=== PATIENT | male | born 1975 | race Caucasian/White ===

== ENCOUNTER 2024-02-03 09:17 | Outpatient (CLI) | payer BC, SELFPAY ==
[2024-02-03 09:33] LABS: Basophils # 0.1 K/mm3 (0-0.2); Basophils % 1.3 % (0.1-2.0); Eosinophils # 0.2 K/mm3 (0.0-0.4); Hematocrit 49.4 % (42.0-52.0); Hemoglobin 16.3 g/dL (14.1-18.0); Lymphocytes # 2.4 K/mm3 (0.7-4.5); Lymphocytes % 32.8 % (10-50); Mean Corpuscular HGB Conc 33.1 g/dL (31.8-35.4); Mean Corpuscular Hemoglobin 30.2 pg (27.0-31.2); Mean Corpuscular Volume 91.4 fl (80-94); Mean Platelet Volume 8.5 fl (7.4-10.4); Monocytes # 0.5 K/mm3 (0.1-1.0); Monocytes % 6.3 % (1.7-9.3); Neutrophils # 4.2 K/mm3 (1.8-7.8); Neutrophils % 56.7 % (37.0-80.0); Platelet Count 298 K/mm3 (142-424); Red Cell Distribution Width 13.8 % (11.5-17.5); White Blood Count 7.4 K/mm3 (4.8-10.8)
[2024-02-03 10:03] LABS: Chloride 105 mmol/L (98-107); Sodium 138 mmol/L (136-145)
[2024-02-03 10:04] LABS: Potassium 4.5 mmoL/L (3.5-5.1)
[2024-02-03 10:06] LABS: Blood Urea Nitrogen 18 mg/dl (9-20); Estimated Glomerular Filt Rate 90 ml/min (>60); GFR (African American) 109 ML/MIN (>60)
[2024-02-03 10:07] LABS: Anion Gap 10.5 mEq/L (5-15); Calcium 9.4 mg/dl (8.4-10.2); Carbon Dioxide 27 mmol/L (22.0-30.0); Glucose 97 mg/dl (74-100)
== END 2024-02-03 23:59 | disposition home or self-care (01) ==
LOC: LAB 09:18
PROVIDERS: PCP Nurse Practitioner Family; Visit Provider Surgery
DX: M79.89 Other specified soft tissue disorders (principal)
CPT/HCPCS: 36415; 80048; 85025

== ENCOUNTER 2024-02-12 09:30 | Outpatient (CLI) | payer BC, SELFPAY ==
--- NOTE | 2024-02-12 09:48 | ECG_ITS ---
APPROVED REPORT Exam: Resting ECG HR:78 bpm ECG Measurements Heart Rate 78 AXES MD 172 P 11 QRSd 90 QRS -3 QT 338 T 52 QTc 371 Conclusion SINUS RHYTHM Late R wave progression - old finding LAD ABNORMAL ECG UNCONFIRMED REPORT Electronically signed by : Manas Edwards MD 02/12/2024 14:18:22
== END 2024-02-12 23:59 | disposition home or self-care (01) ==
LOC: PREOP 09:32
PROVIDERS: PCP Nurse Practitioner Family; Visit Provider Surgery
DX: R94.31 Abnormal electrocardiogram [ECG] [EKG] (principal)
CPT/HCPCS: 93005

== ENCOUNTER 2024-02-18 09:29 | Day surgery (SDC) | payer BC, SELFPAY ==
[2024-02-12 09:52] VITALS: BMI 33.9
[2024-02-18 09:45] VITALS: BP 124/71; PULSE 71; RESP 18; TEMP 36.1; O2SAT 98
--- NOTE | 2024-02-18 09:49 | P.PNANES_ITS ---
[facility] Disclaimer: The information contained in this section may have been updated after the patient was seen, as this information can be updated by other users. Medical History HLD (hyperlipidemia) HTN (hypertension) Surgical History History of surgery on arm H/O excision of dermoid cyst Family History Other Family history of colon cancer Social History Smoking Status: Current every day smoker alcohol intake: never substance use type: denies use current occupational status: employed Travel in the last 8 weeks: Inside the [place] [facility] Anesthesia Checklist Patient Identification Patient Identification: Arm Band and Verbal (Name & ) Structural Data Admitted From: Home Planned Operative Procedure/s: Excision neoplasm Consent for Planned Operative Procedure(s) Verified: Yes Verified Documents: Surgical Consent and History and Physical NPO Status Verified Time NPO: 00:00 Additional verifications Anesthesia Reactions: No Airway Assessment Mallampati Score:: Class III C-Spine Mobility Assessed: Yes TMJ Mobility Assessed: Yes Dentition: Good Dentition Neurological Assessment Level of Consciousness: Awake Hx Seizures: No Numbness or tingling in extremities: No Anesthesia Plan Anesthesia Risk discussed: Yes Anesthesia Plan: Verified ASA Class: II Anesthesia Type: General
[2024-02-18] MEDS: LACTATED RINGERS 1000ML 1,000 ML 25 ML IV (09:54)
--- NOTE | 2024-02-18 10:01 | EXP.OP.NOTE ---
Date of procedure: 02/18/24 Pre-op Diagnosis:: 2 cm soft tissue mass along mid back Post-op Diagnosis:: 3.5 cm soft tissue mass along mid back Procedure performed:: Excision of 3.5 cm mid back soft tissue mass Surgeon:: Rich España MD TEXTILE COLORIST DYER:: Abilio Murphy Anesthesia: MAC and local Estimated blood loss (mL): 15 Clinical Note:: Note: The patient's preoperative EKG was auto-read as possible myocardial infarction. This reading was deemed inaccurate per anesthesia. The patient does not complain of chest pain. He is aware of the auto read and wishes to discuss it with his primary care provider in the next few weeks . Operative findings:: Multiple small lipomatous lesions with aggregate size approximately 3.5 cm Operative note:: After informed consent was obtained the patient was taken to the operating room and placed in the supine position. Monitored anesthesia care ensued and he was transferred to the right lateral cubitus position. His mid back was prepped and draped in a sterile fashion. After infiltration with local anesthetic an incision was made overlying the palpable abnormality. Multiple small lipomatous-like lesions with aggregate size approximately 3.5 cm was noted. Dissection was taken to the fascial margin. No definitive intramuscular anomaly was palpable. The aggregation of small lipomatous lesions was excised in toto and passed off for pathologic evaluation. Electrocautery was utilized to achieve hemostasis. The wound was irrigated and skin was reapproximated with 4-0 nylon in an interrupted fashion. Dressings were applied and the patient was transferred to recovery in stable condition. Condition: stable Disposition: PACU Specimens:: Mid back lipomatous lesions Complications:: No immediate
[2024-02-18] MEDS: CEFAZOLIN SODIUM 2 GM in 0.9 % SODIUM CHLORIDE 100 ML IV (10:15)
--- NOTE | 2024-02-18 10:20 | SUR.PREOP ---
Dr. España asked that we notify pt's PCP, Frank Cunningham APRN, about an abnormal pre-op EKG. TC and spoke with [facility] to explain and sent fax of EKG. Verbalized understanding.
[2024-02-18] MEDS: LIDOCAINE 1% 20ML MDV 20 ML (10:26)
[2024-02-18] MEDS: BACITRACIN ZINC OINT 30GM TUBE 28 GM TP (10:45)
[2024-02-18 10:57] VITALS: BP 100/50; PULSE 63; RESP 16; TEMP 36.3; O2SAT 95
[2024-02-18 11:17] VITALS: BP 99/54; PULSE 63; RESP 18; O2SAT 94
[2024-02-18 11:27] VITALS: BP 108/55; PULSE 66; RESP 18; O2SAT 97
== END 2024-02-18 11:27 | disposition home or self-care (01) ==
PROVIDERS: PCP Nurse Practitioner Family; Visit Provider Surgery
PROC: (CPT 21931; principal; 2024-02-18 11:00)
DX: R22.2 Localized swelling, mass and lump, trunk (principal)
CPT/HCPCS: 21931; J0690; J1100; J2405; J3010; J7120

== ENCOUNTER 2024-03-17 12:59 | Outpatient (CLI) | payer BC, SELFPAY ==
--- NOTE | 2024-03-17 13:00 | CA_ITS ---
APPROVED REPORT EXAM: Comprehensive 2D, Doppler, and color-flow Echocardiogram Revenue Cycle Administrator: Melissa Cool CRT Ht: 6 ft 1 in Wt: 262lbs BSA: 2.41 BP: 140/75 mmHg Indications: Abnormal ECG, Murmur, Hyperlipidemia, Hypertension/HDD, smoker 2D Dimensions LA Volume 51.90 mL LA Volume Index 21.45 mL/m2 (M/F) 16-34 M-Mode Dimensions RVDd 2.80 cm (0.9-2.6) LA Diam 4.56 cm (1.9-4.0) LVDd 4.71 cm (3.5-5.7) LVDs 3.27 cm (3.5-5.7) IVSd 1.57 cm (0.6-1.1) PWd 1.27 cm (0.6-1.1) EF (Teich) 58.00% FS 30.60% EDV (Teich) 102.90 mL TAPSE 2.78 (<1.7) ESV (Teich) 43.20 mL LV Diastology E Decel Time 307 (160-240 msec) E/A Ratio 0.76 MED A' 13.20 cm/s LAT A' 9.90 cm/s Aortic Valve TERENCE Index 0.77 cm2/m2 AoV Peak Wilian. 295.0 (50-130 cm/s) AO Peak GR. 34.80 mmHg AO Mean GR. 18.80 (<5 mmHg) AO VTI 59.3 (18-25 cm) TERENCE (VTI) 1.90 (2.5-4.5 cm2) Mitral Valve MV A Velocity 146.0 (40-130 cm/s) E/A Ratio 0.76 Tricuspid Valve TR P. Velocity 236.00 cm/s RAP Estimate 10.00 mmHg RVSP 32.40 mmHg Left Ventricle The left ventricle is normal size. The left ventricular systolic function is normal. The left ventricular ejection fraction is within the normal range. There is increased LV wall thickness. There is normal LV segmental wall motion. The left ventricular diastolic function is normal. LVEF is 60%. Right Ventricle The right ventricle is normal size. The right ventricular systolic function is normal. Atria The left atrium is mildly dilated. Right atrium is mildly dilated. There is no Doppler evidence of interatrial shunt. Aortic Valve Aortic valve is mildly thickened, cannot rule out bicuspid aortic valve. Mild to moderate aortic stenosis. TERENCE by continuity equation is 2.0 cm???. Peak velocity 2.9 m/s. Mean AV gradient 20 mmHg. Max AV gradient 38 mmHg. No aortic regurgitation is present. Mitral Valve The mitral valve leaflets are mildly thickened. Trace mitral regurgitation No evidence of mitral valve stenosis. Tricuspid Valve The tricuspid valve leaflets are thin and pliable. Trace tricuspid regurgitation. There is insufficient TR jet to estimate RVSP. Pulmonic Valve The pulmonary valve is normal in structure. Trace pulmonic regurgitation. Great Vessels The aortic root is normal in size. The ascending aorta is not well-visualized. IVC is normal in size and collapses >50% with inspiration. Pericardium There is no pericardial effusion. Other Information Study Quality: Fair Conclusion Normal biventricular systolic function. Mild biatrial dilation. Thickened AV leaflets, cannot rule out bicuspid aortic valve. Mild to moderate (TERENCE by continuity equation is 2.0 cm???. Peak velocity 2.9 m/s. Mean AV gradient 20 mmHg. Max AV gradient 38 mmHg). Electronically signed by : Elsa Almonte MD 03/23/2024 12:57:18
== END 2024-03-17 23:59 | disposition home or self-care (01) ==
LOC: RT 13:00
PROVIDERS: PCP Nurse Practitioner Family; Visit Provider Physician Assistant
DX: R01.1 Cardiac murmur, unspecified (principal); R94.31 Abnormal electrocardiogram [ECG] [EKG]; Z82.49 Family history of ischemic heart disease and other diseases of the circulatory system
CPT/HCPCS: 93306

== ENCOUNTER 2024-03-23 06:10 | Outpatient (CLI) | payer SELFPAY ==
--- NOTE | 2024-03-23 06:14 | CT_ITS ---
APPROVED REPORT Feed Grinder: CLINICAL INDICATION Risk stratification TECHNIQUE Image Acquisition: A 128 slice MDCT scanner (L[employer]ish Skatea View) was used for data acquisition. A noncontrast coronary calcium scan was performed. A CT attenuation threshold of 130 Hounsfield units (HU) was used for the detection of calcium in contiguous voxels of 1 sq mm in area to be counted as individual lesions. A tube voltage of 120 KVp was used. The patient received no medications prior to the coronary calcium CT. Image Reconstruction Transaxial images were reconstructed at 0.67 mm slide thickness. Data was reviewed interactively on an advanced workstation capable of 2 and 3-dimensional displays in all conventional reconstruction formats, including multiplanar reformations, maximum intensity projections, curved multiplanar reformations, and volume rendered reconstructions. When applicable, selected routine images describing the relevant coronary anatomy and pathology were saved and sent to PACS. Complications None Technical Quality Overall image quality was good. Total DLP (Dose-Length Product) is 143.9 mGy-cm. The reported value represents the total of one or more individual components during the CT acquisition of this date and at this time, and as such, the same value may appear in more than one CT report depending on the interpreting/reporting physicians. COMPARISON None FINDINGS CT Coronary Calcium Scoring LMA (Left Main Artery) = 0 LAD (Left Anterior Descending) = 0 LCX (Left Coronary Circumflex) = 0 RCA (Right Coronary Artery) = 0 Total Calcium Score = 0 using the AJ-130 method. There is mild calcification in the aortic valve and the proximal ascending aorta. IMPRESSION -Coronary artery calcification is present. -Total Calcium Score (Agatston Score) = 0 using the AJ-130 method. -Mild calcification in the aortic valve and the proximal ascending aorta is incidentally noted. The interpretation of the calcium heart score is based on the following continuum*: 0 = no calcified plaque detected (risk of coronary artery disease is very low ??? less than 5%) 1-10 = calcium detected in extremely minimal levels (risk of coronary diseases is still low ??? less than 10%) 11-100 = mild levels of plaque detected with certainty (mild or minimal narrowing of heart arteries is likely) 101-400 = definite,at least moderate levels of plaque detected (relatively high risk of a heart attack within 3-5 years) >401-999 = extensive levels of plaque detected (high risk of heart attack, high levels of vascular disease are present, high likelihood of at least one significant coronary narrowing) *The calcium heart score quantifies the burden of coronary calcification/plaque in the coronary arteries. The calcium heart score does not evaluate the presence or the burden of non-calcified (i.e. soft) plaque. The coronary and cardiac findings of this Coronary Calcium CT were reviewed, reported, and signed by Yaya Almonte MD (Photoengraving Apprentice). Conclusion Electronically signed by : Elsa Almonte MD 03/23/2024 12:25:44
== END 2024-03-23 23:59 | disposition home or self-care (01) ==
LOC: RAD 06:11
PROVIDERS: PCP Nurse Practitioner Family; Visit Provider Physician Assistant
DX: R94.31 Abnormal electrocardiogram [ECG] [EKG] (principal); Z72.0 Tobacco use
CPT/HCPCS: 75571

== ENCOUNTER 2024-05-10 08:23 | Day surgery (SDC) | payer BC, SELFPAY ==
[2024-05-09 13:19] VITALS: BMI 35.2
[2024-05-10 08:48] VITALS: BP 145/85; PULSE 81; RESP 18; TEMP 37.2; O2SAT 96
--- NOTE | 2024-05-10 08:55 | P.PNANES_ITS ---
[facility] Disclaimer: The information contained in this section may have been updated after the patient was seen, as this information can be updated by other users. Medical History Sleep apnea Anxiety Scoliosis HLD (hyperlipidemia) HTN (hypertension) Surgical History History of surgery on arm H/O excision of dermoid cyst Family History Grandfather Heart attack Grandmother Stroke Father Hypertension Other Family history of colon cancer Social History Smoking Status: Current every day smoker alcohol intake: current alcohol intake frequency: a few times a week substance use type: denies use current occupational status: employed Travel in the last 8 weeks: Inside the [place] caffeine: Yes Have you lived/traveled outside [place] in past 30 days?: No Contact w/someone who lives/traveled outside US past 30 days?: No Exposure to someone with infectious disease in past 14 days?: No Do you have a fever (greater than 100.4 F or 38 C)?: No Have you tested positive for COVID-19: No Exposed to someone with COVID-19 in past 14 days?: No Do you have a sore throat?: No Do you have a cough?: No Do you have any weakness?: No Are you experiencing any nausea/vomitting?: No Do you have any diarrhea?: No Are you experiencing any unusual bleeding?: No Do you have any muscle aches/pain?: No Do you have any abdominal pain?: No Are you experiencing loss of taste or smell?: No [facility] Anesthesia Checklist Patient Identification Patient Identification: Arm Band and Verbal (Name & ) Structural Data Admitted From: Home Planned Operative Procedure/s: Colonoscopy Consent for Planned Operative Procedure(s) Verified: Yes Verified Documents: Surgical Consent and History and Physical NPO Status Verified Time NPO: 00:00 Additional verifications Anesthesia Reactions: No Hx Blood Transfusions: No Airway Assessment Mallampati Score:: Class III C-Spine Mobility Assessed: Yes TMJ Mobility Assessed: Yes Dentition: Good Dentition Neurological Assessment Level of Consciousness: Awake Hx Seizures: No Numbness or tingling in extremities: No Anesthesia Plan Anesthesia Risk discussed: Yes Anesthesia Plan: Verified ASA Class: III Anesthesia Type: MAC
--- NOTE | 2024-05-10 09:01 | HMH.SCOPE ---
Procedure: Date: 05/10/24 Patient Date of :: 1975 Procedure Performed:: Colonoscopy with polypectomy Indications:: Screening Performing Provider:: Rich España MD Referring Provider:: . Sedation:: Monitored anesthesia care Procedure:: After informed consent was obtained the patient was taken to the endoscopy suite. Sedation ensued after the patient was transferred to the left lateral decubitus position. Pulse, blood pressure, and oxygen saturation were monitored throughout the procedure. Digital rectal exam revealed no significant abnormality. The colonoscope was placed in position. The entire colon was evaluated. The colonoscope was carefully removed and the patient was transferred to recovery in stable condition. Please see findings and specimens below for detail. Findings:: Bowel preparation moderate Hemorrhoidal cushions Profound spasticity/lack of relaxation Significant tortuosity Multiple complex polyps (see specimens) Specimens:: Sessile lobulated cecal polyp (cold snare) Cluster of sessile polyps between 30 and 35 cm (cold snare) Large complex lobulated partially pedunculated polyp at 15 cm (hot snare) Recommendations:: Timing of repeat colonoscopy is pending pathology but likely be between 6-12 months with extended bowel preparation secondary to size/nature/number of polyps, moderate bowel preparation, and profound spasticity/lack of relaxation. Complications:: No immediate Estimated blood obtained (mL): 1 Colonoscopy Component Colonoscopy Component Was a colonoscopy performed during today's procedure?: Yes Recommended follow up colonoscopy of at least 10 years?: No If no, follow up colonoscopy recommended in ___ years?: (See above) Reason for not recommending >/= 10 yr follow-up interval?: (See above)
[2024-05-10 09:08] VITALS: O2SAT 97
[2024-05-10 09:42] VITALS: BP 109/67; PULSE 74; RESP 16; TEMP 36.1; O2SAT 92
[2024-05-10 09:52] VITALS: BP 110/72; PULSE 72; RESP 16; O2SAT 98
[2024-05-10 10:02] VITALS: BP 124/59; PULSE 77; RESP 16; O2SAT 98
== END 2024-05-10 10:20 | disposition home or self-care (01) ==
PROVIDERS: PCP Nurse Practitioner Family; Visit Provider Surgery
PROC: 0DJD8ZZ Inspection of Lower Intestinal Tract, Via Natural or Artificial Opening Endoscopic (ICD-10-PCS; CPT 45385; principal; 2024-05-10 09:30)
DX: K63.5 Polyp of colon (principal); D12.0 Benign neoplasm of cecum; D12.5 Benign neoplasm of sigmoid colon; K64.9 Unspecified hemorrhoids; Z12.11 Encounter for screening for malignant neoplasm of colon; Z80.0 Family history of malignant neoplasm of digestive organs
CPT/HCPCS: 45385; J2704

== ENCOUNTER 2024-07-06 23:52 | Inpatient (IN) | payer BC, SELFPAY ==
[2024-07-06 23:53] VITALS: BP 159/91; PULSE 102; RESP 18; TEMP 38.6; O2SAT 95; BMI 35.2
[2024-07-06 23:56] VITALS: BP 159/91; PULSE 104; O2SAT 95
[2024-07-07] VITALS (25 sets, daily range): BP systolic 118–169; BP diastolic 52–96; PULSE 71–99; RESP 14–18; TEMP 36.3–38.6; O2SAT 90–97; BMI 48.9
--- NOTE | 2024-07-07 00:04 | CT_ITS ---
PROCEDURE INFORMATION: Exam: CT Abdomen And Pelvis With Contrast Exam date and time: 07/07/2024 1:05 AM Age: 48 years old Clinical indication: Abdominal pain; Additional info: Rlq pain, ttp, fever TECHNIQUE: Imaging protocol: Computed tomography of the abdomen and pelvis with contrast. Radiation optimization: All CT scans at this facility use at least one of these dose optimization techniques: automated exposure control; mA and/or kV adjustment per patient size (includes targeted exams where dose is matched to clinical indication); or iterative reconstruction. Contrast material: ISOVUE; Contrast volume: 75 ml; Contrast route: IV; COMPARISON: CT HEART W CALCIUM SCORE 03/23/2024 6:42 AM FINDINGS: Liver: Tiny hepatic cyst. Gallbladder and biliary ducts: Normal. No calcified stones. No ductal dilation. Pancreas: Normal. No ductal dilation. Spleen: Normal. No splenomegaly. Adrenal glands: Normal. No mass. Kidneys and ureters: Normal. No hydronephrosis. Stomach and bowel: Reactive thickening small bowel. Appendix: Acute appendicitis with extensive periappendiceal fatty inflammation and reactive thickening of the adjacent small bowel. Appendicolith at the base of the appendix. Intraperitoneal space: Unremarkable. No free air. No significant fluid collection. Vasculature: Unremarkable. No abdominal aortic aneurysm. Lymph nodes: Unremarkable. No enlarged lymph nodes. Urinary bladder: Unremarkable as visualized. Reproductive: Unremarkable as visualized. Bones/joints: Unremarkable. No acute fracture. Soft tissues: Unremarkable. IMPRESSION: Acute appendicitis.
--- NOTE | 2024-07-07 00:22 | HMH.EDGENADL ---
Discharge Plan Disposition Patient Disposition: Admitted Condition: Fair Prescriptions Prescriptions: No Action rosuvastatin 20 mg tablet 20 mg PO DAILY Patient Comments: TAKE 1 TABLET BY MOUTH EVERY DAY valsartan 80 mg tablet 80 mg PO DAILY Patient Comments: TAKE 1 TABLET BY MOUTH EVERY DAY escitalopram oxalate [Lexapro] 20 MG tablet 20 mg PO DAILY Referrals Follow up/Referrals: Carmen Conteh APRN [Primary Care Provider] - See instructions Clinical Impressions Clinical Impression: Acute appendicitis, Right lower quadrant abdominal pain Print Language Print Language: Croatian Discharge ED Provider: Jose Beavers General Adult HPI General Chief complaint: Abdominal Pain Stated complaint: R side abd pain Time Seen by Provider: 07/06/24 23:58 Mode of Arrival: Ambulatory Source of Information: Patient Limitations: No Limitations Description of Symptoms (Recalled from ER Triage Doc. by RN): Patient reports abd pain starting on thursday- went away yesterday- came back today around 12pm. Also reports heart burn. Pain is in the RLQ- describes it as a sharp, stabbing pain. Denies any previous abdominal surgeries. Also states his feet and legs feel like they are on fire . History of Present Illness HPI narrative: 48-year-old male with history of hypertension, hyperlipidemia, bicuspid aortic valve presents to the ER with complaints of right lower quadrant abdominal pain. Patient reports intermittent right lower quadrant abdominal pain that has waxed and waned over the last 4 days. He reports it went away yesterday and came back tonight approximately 15 minutes prior to arrival. He reports symptoms of heartburn but no vomiting. He describes sharp stabbing pain worse in the right lower quadrant that is worse with walking. He has not had diarrhea or constipation, no vomiting. On arrival in the ER he had fever and was complaining that his lower extremities felt like they were on fire. At the time of my exam, he was not complaining of this. He reports he took Tylenol ibuprofen approximately 5 to 6 hours prior to arrival. He has never had his appendix removed. Related Data Home Medications ?Medication ?Instructions ?Recorded ?Confirmed escitalopram oxalate 20 mg tablet 20 mg PO DAILY Anxiety 01/07/18 07/07/24 (Lexapro) rosuvastatin 20 mg tablet 20 mg PO DAILY 02/03/24 07/07/24 valsartan 80 mg tablet 80 mg PO DAILY 03/10/24 07/07/24 Allergies Allergy/AdvReac Type Severity Reaction Status Date / Time No Known Allergies Allergy Verified 05/10/24 08:46 [facility] Disclaimer: The information contained in this section may have been updated after the patient was seen, as this information can be updated by other users. Medical History Sleep apnea Anxiety Scoliosis HLD (hyperlipidemia) HTN (hypertension) Surgical History History of surgery on arm H/O excision of dermoid cyst Family History Grandfather Heart attack Grandmother Stroke Father Hypertension Other Family history of colon cancer Social History Smoking Status: Current some day smoker alcohol intake: current alcohol intake frequency: a few times a week substance use type: denies use current occupational status: employed Travel in the last 8 weeks: Inside the [place] caffeine: Yes Have you lived/traveled outside US in past 30 days?: No Contact w/someone who lives/traveled outside US past 30 days?: No Exposure to someone with infectious disease in past 14 days?: No Do you have a fever (greater than 100.4 F or 38 C)?: No Have you tested positive for COVID-19: No Exposed to someone with COVID-19 in past 14 days?: No Do you have a sore throat?: No Do you have a cough?: No Do you have any weakness?: No Do you have any diarrhea?: No Are you experiencing any unusual bleeding?: No Do you have any muscle aches/pain?: No Do you have any abdominal pain?: Yes Are you experiencing loss of taste or smell?: No ROS Obtained: Yes Systems reviewed as appropriate & no additional complaints except as documented per HPI Physical Exam General General appearance: alert and in no apparent distress Head Head exam: atraumatic and normocephalic Eye Eye exam: Present PERRL and EOMI ENT ENT exam: Present mucous membranes moist Neck Neck exam: Present normal inspection and full ROM Chest Chest inspection: Present symmetric chest wall rise Respiratory Respiratory exam: Present normal lung sounds bilaterally; Absent respiratory distress, wheezes or stridor Cardiovascular Cardiovascular exam: Present regular rate and normal rhythm Abdominal Exam Abdominal exam: Present soft, tenderness, guarding and Rovsing's sign; Absent distention or rebound Abdominal tenderness: Present RLQ and severe Extremities Exam Extremities exam: Present full ROM and normal capillary refill; Absent tenderness, edema, joint swelling or calf tenderness Neurological Exam Neurological exam: Present alert and oriented X3; Absent motor sensory deficit Psychiatric Psychiatric exam: Present normal affect and normal mood Skin Skin exam: Present warm and dry Medical Decision Making Medical Records Medical records reviewed: Yes I reviewed the patient's medical records. Screening: Per USPSTF and CDC recommendations, given the prevalence of disease in our region, it is our hospital?s policy to screen for HIV and viral Hepatitis for all patients aged 18 and over and those with ongoing risk factors. MR Comment: Patient had colonoscopy in April 2024. He had multiple complex polyps, cluster of sessile polyps, lobulated partially pedunculated polyp. Sathish Inquiry Pt receiving controlled substance: No Vital Signs: 07/06/24 23:53 07/06/24 23:56 07/07/24 00:00 Temperature 101.5 F H Temperature Source Oral Pulse Rate 104 H 99 H Pulse Rate [Right Radial] 102 H Respiratory Rate 18 Blood Pressure 159/91 H 153/80 H Blood Pressure [Right Arm] 159/91 H Blood Pressure Mean Blood Pressure Mean [Right Arm] 113 Blood Pressure Source [Right Arm] Automatic Cuff Blood Pressure Position [Right Arm] Sitting 02 Sat by Pulse Oximetry 95 95 96 Oxygen Delivery Method Room Air Room Air Room Air 07/07/24 00:30 07/07/24 01:15 Temperature Temperature Source Pulse Rate 93 H Pulse Rate [Right Radial] Respiratory Rate Blood Pressure 158/86 H Blood Pressure [Right Arm] Blood Pressure Mean 98 Blood Pressure Mean [Right Arm] Blood Pressure Source [Right Arm] Blood Pressure Position [Right Arm] 02 Sat by Pulse Oximetry 92 L Oxygen Delivery Method Room Air Lab Data Lab Results 07/07/24 00:19: WBC 18.5 H, RBC 5.37, Hgb 15.9, Hct 45.7, MCV 85.1, MCH 29.6, MCHC 34.8, RDW 12.3, Plt Count 245, MPV 8.3, Neut % (Auto) 80.6 H, Lymph % (Auto) 8.5 L, [place] % (Auto) 9.6 H, Eos % (Auto) 0.5, Baso % (Auto) 0.3, Neut # (Auto) 14.9 H, Lymph # (Auto) 1.6, [place] # (Auto) 1.8 H, Eos # (Auto) 0.1, Baso # (Auto) 0.1, PT 10.3, INR 0.91, Sodium 135 L, Potassium 4.0, Chloride 97 L, Carbon Dioxide 27, Anion Gap 15.0, BUN 17, Creatinine 0.90, Estimated Creat Clear 166, Estimated GFR 90, Est GFR ( Amer) 109, Glucose 107 H, Lactate 0.8, Calcium 9.5, Total Bilirubin 0.6, AST 53, ALT 68, Alkaline Phosphatase 71, Total Protein 7.4, Albumin 4.8, Globulin 2.6, Albumin/Globulin Ratio 1.8, Lipase 46 07/07/24 00:19 07/07/24 00:19 Orders (Tests/Meds): ED MEDICATIONS Generic Name Dose Route Start Last Admin Trade Name Freq PRN Reason Stop Dose Admin Sodium Chloride 10 ml 07/07/24 01:14 07/07/24 01:15 Sodium Chloride 0.9% 10ml Syr (Rad Only) IV 08/06/24 01:13 10 ml NEEDED PRN Administration Maintain IV Site Discontinued Medications Generic Name Dose Route Start Last Admin Trade Name Freq PRN Reason Stop Dose Admin Lactated Ringer's 1,000 mls @ 999 mls/hr 07/07/24 00:04 07/07/24 00:39 Lactated Ringer's 1000 Ml Bag IV 07/07/24 01:04 999 mls/hr .Q1H1M ONE Administration Piperacillin Sod/Tazobactam 100 mls @ 200 mls/hr 07/07/24 00:07 07/07/24 00:39 Sod 4.5 gm/ Sodium Chloride IV 07/07/24 00:36 200 mls/hr ONCE ONE Administration Iopamidol 75 ml 07/07/24 01:14 07/07/24 01:15 Iopamidol-370 (76%);100ml Bottle IV 07/07/24 01:15 75 ml ONCE ONE Administration Ketorolac Tromethamine 15 mg 07/07/24 00:04 07/07/24 00:39 Ketorolac 30mg/Ml Vial IV 07/07/24 00:05 15 mg ONCE ONE Administration Morphine Sulfate 4 mg 07/07/24 00:11 07/07/24 00:39 Morphine 4mg/Ml Syringe IV 07/07/24 00:12 4 mg ONCE ONE Administration Ondansetron HCl 4 mg 07/07/24 00:04 07/07/24 00:38 Ondansetron 4mg/2ml Vial IV 07/07/24 00:05 4 mg ONCE ONE Administration ORDERS Category Date Time Status CT abdomen pelvis w con Stat Cat Scan 07/07/24 00:04 Completed CBC w/Auto Diff [Complete Blood Count Auto Diff] Stat Lab 07/07/24 00:19 Results CMP [Comprehensive Metabolic Panel] Stat Lab 07/07/24 00:19 Completed Lactic Acid Stat Lab 07/07/24 00:19 Completed Lipase Stat Lab 07/07/24 00:19 Completed PT INR [Prothrombin Time INR] Stat Lab 07/07/24 00:19 Completed Rapid PCR Covid and Flu A/B Stat Lab 07/07/24 00:19 Received Blood Culture Stat Micro 07/07/24 00:19 Received Tissue Perfus/Sepsis Re-Eval Sepsis Re-Evaluation Performed: Yes Date Performed: 07/07/24 Time Performed: 01:41 Medical Decision Narrative: In summary, this 48-year-old male with comorbidities described in the HPI which increases the overall amount of data to be reviewed as well as his overall morbidity presents to the emergency department today with right lower quadrant abdominal pain. On initial evaluation patient is mildly tachycardic on arrival but no tachycardia during my exam, he is febrile, he has significant tenderness to palpation of the right lower quadrant as well as positive Rovsing's, voluntary guarding with palpation of the right lower quadrant, patient does have localized peritonitis, remainder of exam benign. Differential diagnosis includes but is not limited to appendicitis, bowel obstruction, mesenteric adenitis, viral syndrome, electrolyte abnormality, dehydration, constipation, ileus, sepsis. Patient met sepsis criteria on arrival with tachycardia, fever, and likely right lower quadrant infection. He is receiving IV fluids, as well as Zosyn for suspected intra-abdominal infection. He is not receiving a full 30 mL/kg bolus due to his history of bicuspid aortic valve and moderate aortic regurgitation as I do not want to fluid overload him and he is not currently hypotensive. Based on these concerns, I ordered serum labs, CT imaging. Patient received Toradol, morphine, Zofran, LR, IV Zosyn initially for treatment. Labs personally reviewed demonstrate leukocytosis WBC 18.5 with neutrophilia which further supports my concern for sepsis and appendicitis, PT/INR normal, CMP nonactionable. CT abdomen pelvis personally interpreted demonstrates findings of acute appendicitis with enlarged, inflamed appendix and periappendiceal fat stranding. Appendix appears to measure approximately 10 to 11 mm in diameter with appendicolith. I do not appreciate obvious fluid collection or free air. On reassessment of the patient, he states his pain is somewhat improved since receiving initial medications. He is currently stable tachycardia improved. Radiologist called me after my personal interpretation and informed me that he also appreciates acute appendicitis and no obvious evidence of rupture. I called for a general surgery consult, I spoke with Dr. España who recommends admission to the hospitalist, continued IV antibiotics, n.p.o., plan for surgery in the morning. I discussed this recommendation with the patient who is agreeable to this plan. I discussed the case with the hospitalist who graciously accepted the patient for admission. Patient admitted in stable condition. Critical Care Critical Care Time Critical Care Time: Yes Attestation: On 07/06/24, the high probability of a clinically significant, sudden or life threatening deterioration of the following system(s) (cardiac, GI) required my full and direct attention, intervention and personal management. The time I documented below is in addition to time spent performing reported procedures but includes the following listed in this critical care notation. Total Time Total Critical Care Time: 35
[2024-07-07 00:31] LABS: Coronavirus 19, PCR Not Detected (NotDetected); Influenza A, PCR Not Detected (NotDetected); Influenza B, PCR Not Detected (NotDetected)
--- NOTE | 2024-07-07 00:33 | PC.NURSE ---
Rounding done; patient resting
[2024-07-07 00:35] LABS: Basophils # 0.1 K/mm3 (0-0.2); Basophils % 0.3 % (0.1-2.0); Eosinophils # 0.1 K/mm3 (0.0-0.4); Eosinophils % 0.5 % (0.1-12.0); Hematocrit 45.7 % (42.0-52.0); Hemoglobin 15.9 g/dL (14.1-18.0); Lymphocytes # 1.6 K/mm3 (0.7-4.5); Lymphocytes % 8.5 % (10-50); Mean Corpuscular HGB Conc 34.8 g/dL (31.8-35.4); Mean Corpuscular Hemoglobin 29.6 pg (27.0-31.2); Mean Corpuscular Volume 85.1 fl (80-94); Mean Platelet Volume 8.3 fl (7.4-10.4); Monocytes # 1.8 K/mm3 (0.1-1.0); Monocytes % 9.6 % (1.7-9.3); Neutrophils # 14.9 K/mm3 (1.8-7.8); Neutrophils % 80.6 % (37.0-80.0); Platelet Count 245 K/mm3 (142-424); Red Blood Count 5.37 M/mm3 (4.60-6.20); Red Cell Distribution Width 12.3 % (11.5-17.5); White Blood Count 18.5 K/mm3 (4.8-10.8)
[2024-07-07] MEDS: ONDANSETRON 4MG/2ML VIAL 4 MG IV ×2 (00:38→05:26)
[2024-07-07] MEDS: KETOROLAC 30MG/ML VIAL 15 MG IV (00:39)
[2024-07-07] MEDS: MORPHINE 4MG/ML SYRINGE 4 MG IV (00:39)
[2024-07-07] MEDS: LACTATED RINGERS 1000ML 1,000 ML 999 ML IV (00:39)
[2024-07-07] MEDS: PIPERACILLIN/TAZO 4.5 GM in 0.9 % SODIUM CHLORIDE 100 ML IV ×3 (00:39→19:46)
[2024-07-07 00:42] LABS: INR 0.91 (0.9-1.1); Prothrombin Time 10.3 seconds (10.1-12.5)
[2024-07-07 00:47] LABS: MANUAL DIFFERENTIAL MANUAL DIFFERENTIAL (MANUAL DIFF)
[2024-07-07 00:49] LABS: Alanine Aminotransferase 68 U/L (12-78); Albumin Level 4.8 g/dl (3.5-5.0); Albumin/Globulin Ratio 1.8 (1.1-1.8); Alkaline Phosphatase 71 U/L (38-126); Aspartate Amino Transferase 53 U/L (17-59); Bilirubin,Total 0.6 mg/dl (0.2-1.3); Blood Urea Nitrogen 17 mg/dl (9-20); Calcium 9.5 mg/dl (8.4-10.2); Carbon Dioxide 27 mmol/L (22.0-30.0); Chloride 97 mmol/L (98-107); Creatinine Clearance Estimated 166 mL/min (50-200); Estimated Glomerular Filt Rate 90 ml/min (>60); GFR (African American) 109 ML/MIN (>60); Globulin 2.6 g/dL (1.3-3.2); Glucose 107 mg/dl (74-100); Lactic Acid 0.8 mmol/L (0.7-2.1); Lipase 46 U/L (23-300); Sodium 135 mmol/L (136-145); Total Protein,Serum 7.4 g/dl (6.3-8.2)
[2024-07-07] MEDS: IOPAMIDOL-370 (76%);100ML BOTTLE 75 ML IV (01:15)
[2024-07-07] MEDS: SODIUM CHLORIDE 0.9% 10ML SYR (RAD ONLY) 10 ML IV (01:15)
--- NOTE | 2024-07-07 01:24 | PC.NURSE ---
rounding done. Patient resting.
--- NOTE | 2024-07-07 01:41 | PC.NURSE ---
Called to give report; floor unable to take report at this time. State they will call back.
--- NOTE | 2024-07-07 01:58 | P.HP_ITS ---
<Statement entered by Phoenix Reyes MD - 07/12/24 14:21> I personally examined the patient and agree with the plan of care outlined by the NURSE OBGYN. History of Present Illness *Admission Date: 07/07/24 *Reason for visit:: Abdominal pain *History of present illness: This is a 48-year-old male who has a past medical history significant for hypertension, hyperlipidemia, bicuspid aortic valve, sleep apnea, anxiety, and scoliosis who presents with a chief complaint of abdominal pain. Due to patient's symptoms, he presented to the emergency room for evaluation. While in the emergency room, CT scan of the abdomen pelvis was consistent with acute appendicitis. As a result of his findings, patient has been admitted for further management. During my evaluation of the patient, patient states he has been having intermittent abdominal pain in the right lower quadrant for the past 4 days. He reports the pain description has been sharp, stabbing, he consistent with heartburn. Patient states that ambulation makes pain worse. He is currently denying any chest pain, lightheadedness, dizziness, fever, chills, rigors, bilious emesis, nausea, shortness of breath, dyspnea, or diarrhea. Additional pertinent vitals obtained include a temperature of 101.5, heart rate of 102, white blood cell count of 18.5, neutrophils 80.6, sodium 135, and chloride of 97. [facility] Disclaimer: The information contained in this section may have been updated after the patient was seen, as this information can be updated by other users. Medical History Sleep apnea Anxiety Scoliosis HLD (hyperlipidemia) HTN (hypertension) Surgical History History of surgery on arm H/O excision of dermoid cyst Family History Grandfather Heart attack Grandmother Stroke Father Hypertension Other Family history of colon cancer Social History Smoking Status: Current some day smoker alcohol intake: current alcohol intake frequency: a few times a week substance use type: denies use current occupational status: employed Travel in the last 8 weeks: Inside the [place] caffeine: Yes Have you lived/traveled outside [place] in past 30 days?: No Contact w/someone who lives/traveled outside [place] past 30 days?: No Exposure to someone with infectious disease in past 14 days?: No Do you have a fever (greater than 100.4 F or 38 C)?: No Have you tested positive for COVID-19: No Exposed to someone with COVID-19 in past 14 days?: No Do you have a sore throat?: No Do you have a cough?: No Do you have any weakness?: No Do you have any diarrhea?: No Are you experiencing any unusual bleeding?: No Do you have any muscle aches/pain?: No Do you have any abdominal pain?: Yes Are you experiencing loss of taste or smell?: No Review of Systems Review of Systems Review of systems:: pertinent systems reviewed and negative unless documented below Constitutional Constitutional: Reports system reviewed and no additional complaints, except as documented Eyes Eyes: Reports system reviewed and no additional complaints, except as documented ENT Ears, Nose, Mouth, and Throat: Reports system reviewed and no additional complaints, except as documented *Cardiovascular Cardiovascular: Reports system reviewed and no additional complaints, except as documented *Respiratory Respiratory: Reports system reviewed and no additional complaints, except as documented *Gastrointestinal Gastrointestinal: Reports abdominal pain and Reports heartburn *Genitourinary Genitourinary: Reports system reviewed and no additional complaints, except as documented *Musculoskeletal Musculoskeletal: Reports system reviewed and no additional complaints, except as documented Integumentary/Breasts Skin/Breast: Reports system reviewed and no additional complaints, except as documented *Neurologic Neurologic: Reports system reviewed and no additional complaints, except as documented Psychiatric Psychiatric: Reports system reviewed and no additional complaints, except as documented Endocrine Endocrine: Reports system reviewed and no additional complaints, except as documented Hematologic/Lymphatic Hematologic/Lymphatic: Reports system reviewed and no additional complaints, except as documented Allergic/Immunologic Allergic/Immunologic: Reports system reviewed and no additional complaints, except as documented Meds Home Medications and Allergies Home Medications ?Medication ?Instructions ?Recorded ?Confirmed ?Type escitalopram oxalate 20 mg tablet 20 mg PO DAILY Anxiety 01/07/18 07/07/24 History (Lexapro) rosuvastatin 20 mg tablet 20 mg PO DAILY 02/03/24 07/07/24 History valsartan 80 mg tablet 80 mg PO DAILY 03/10/24 07/07/24 History New Prescriptions to Start Prescriptions: Allergies Allergy/AdvReac Type Severity Reaction Status Date / Time No Known Allergies Allergy Verified 05/10/24 08:46 Exam Data for Last 24 hours Vital signs and Labs for Last 24 Hours: Temp Pulse Resp BP Pulse Ox O2 Del Method 101.5 F H 88 18 163/92 H 92 L Room Air 07/06/24 23:53 07/07/24 01:30 07/06/24 23:53 07/07/24 01:30 07/07/24 01:30 07/07/24 00:30 Laboratory Results - last 24 hr 07/07/24 00:19: WBC 18.5 H, RBC 5.37, Hgb 15.9, Hct 45.7, MCV 85.1, MCH 29.6, MCHC 34.8, RDW 12.3, Plt Count 245, MPV 8.3, Neut % (Auto) 80.6 H, Lymph % (Auto) 8.5 L, [place] % (Auto) 9.6 H, Eos % (Auto) 0.5, Baso % (Auto) 0.3, Neut # (Auto) 14.9 H, Lymph # (Auto) 1.6, [place] # (Auto) 1.8 H, Eos # (Auto) 0.1, Baso # (Auto) 0.1, PT 10.3, INR 0.91, Sodium 135 L, Potassium 4.0, Chloride 97 L, Carbon Dioxide 27, Anion Gap 15.0, BUN 17, Creatinine 0.90, Estimated Creat Clear 166, Estimated GFR 90, Est GFR ( Amer) 109, Glucose 107 H, Lactate 0.8, Calcium 9.5, Total Bilirubin 0.6, AST 53, ALT 68, Alkaline Phosphatase 71, Total Protein 7.4, Albumin 4.8, Globulin 2.6, Albumin/Globulin Ratio 1.8, Lipase 46, SARS-CoV-2 (PCR) Not detected, Influenza A Untype (PCR) Not detected, Influenza Type B (PCR) Not detected I & O for Last 24 hours: Intake & Output 07/04/24 07/05/24 07/06/24 07/07/24 23:59 23:59 23:59 23:59 Weight 117.934 kg Constitutional Constitutional: no acute distress and obese *Routine HEENT Exam Head: Present normocephalic and atraumatic Eye: Present EOMI, PERRL and normal accommodation ENT: Present mucous membranes moist *Routine Neck Exam Neck: Present supple and full ROM *Routine Respiratory Exam Respiratory: Present normal respiratory effort, able to speak in complete sentences and symmetric chest movement *Routine Cardiovascular Exam Cardiovascular: Present murmur *Routine Abdominal Exam Abdominal: Present soft, tenderness and guarding *Routine Rectal Exam Rectal:: deferred *Routine Genitalia Exam Genitalia:: deferred *Routine Extremities Exam Extremities: Present full ROM, pulses intact and normal capillary refill Routine Back/Spine/Pelvis Exam Back/Spine: Present full ROM *Routine Skin Exam Skin: Present intact, dry and warm *Routine Neurological Exam Neurological: Present alert, oriented X3 and CN II-XII intact Routine Psychiatric Exam Psychiatric: Present normal affect, normal thought process, cooperative, good insight and good judgment H&P: Result Impressions 48-year-old male who presents with intermittent abdominal pain found to have acute acute appendicitis Assessment and Plan *Assessment and plan (1) Sepsis: Status: Acute Qualifiers: Sepsis type: sepsis due to unspecified organism Sepsis acute organ dysfunction status: without acute organ dysfunction Qualified Code(s): A41.9 - Sepsis, unspecified organism Category: Medical Code(s): A41.9 - Sepsis, unspecified organism (2) Acute appendicitis: Status: Acute Qualifiers: Acute appendicitis type: unspecified acute appendicitis type Qualified Code(s): K35.80 - Unspecified acute appendicitis Category: Medical Code(s): K35.80 - Unspecified acute appendicitis (3) Leukocytosis: Status: Acute Qualifiers: Leukocytosis type: unspecified Qualified Code(s): D72.829 - Elevated white blood cell count, unspecified Category: Medical Code(s): D72.829 - Elevated white blood cell count, unspecified (4) Fever: Status: Acute Qualifiers: Fever type: unspecified Qualified Code(s): R50.9 - Fever, unspecified Category: Medical Code(s): R50.9 - Fever, unspecified Plan Assessment: Sepsis: Patient is meeting sepsis criteria with a high heart rate, fever, source, and white blood cell count -Patient did not receive 30 mL/kg of body weight of IV hydration he is currently hemodynamically stable -Sepsis reperfusion screen performed -Blood cultures x 2 -Venous lactic acid Acute appendicitis -Consult general surgery Leukocytosis with left shift -Antibiotics as above -Will monitor white blood cell count daily -Will consider procalcitonin -Blood cultures are pending Fever -Will give antipyretics as needed -Will monitor blood cultures Plan: Admit patient to the MedSurg unit EKG for presurgical clearance Patient currently has a revised cardiac index of 0 which is a 3.9% of any major cardiac event; other than general wrist anesthesia this represents a mild risk to surgery Activity as tolerated Incentive spirometer Vital signs every 4 hours N.p.o. now CBC/BMP daily LR at 100 mL an hour 40 mg Lovenox subcu daily for DVT prophylax 5 mg [place] p.o. every 4 hours PMR pain 2 mg morphine IV push every 2 hours as needed severe pain 4 mg Zofran IV push 3 hours. Nausea vomiting/4.5 g Zosyn IV every 6 hours Full code I will discuss this case with attending physician Dr. Reyse and I look forward to more input
--- NOTE | 2024-07-07 02:08 | EXP.SEPSISRE ---
[facility] Tissue Perfusion Eval Sepsis Re-Evaluation Performed: Yes Date Performed: 07/07/24 Time Performed: 02:09
--- NOTE | 2024-07-07 02:09 | PC.NURSE ---
glucose 501
[2024-07-07] MEDS: ACETAMINOPHEN 1,000MG/100ML VIAL 1000 MG IV (02:23)
[2024-07-07 02:47] LABS: Eosinophils % 2 % (0-3); Lymphocytes % 17 % (10-50); Monocytes % 3 % (2-9); Neutrophils % 78 % (42-76); Total Cells Counted 100
[2024-07-07 02:48] LABS: Platelet Estimate Normal; RBC Morphology Normal
[2024-07-07] MEDS: LACTATED RINGERS 1000ML 1,000 ML 100 ML IV ×2 (02:53→14:50)
[2024-07-07] MEDS: MORPHINE 2MG/ML SYRINGE 2 MG IV ×5 (02:54→17:54)
--- NOTE | 2024-07-07 03:03 | PC.NURSE ---
Pt had a temp of 101.0 upon arriving to the unit, Pt was treated per JUL.
--- NOTE | 2024-07-07 03:16 | ECG_ITS ---
APPROVED REPORT Exam: Resting ECG HR:84 bpm ECG Measurements Heart Rate 84 AXES IL 160 P -4 QRSd 83 QRS -10 QT 326 T 27 QTc 367 Conclusion SINUS RHYTHM LAD Late R wave progression ABNORMAL ECG UNCONFIRMED REPORT Electronically signed by : Manas Edwards MD 07/08/2024 15:50:56
[2024-07-07 06:56] LABS: Basophils # 0.1 K/mm3 (0-0.2); Basophils % 0.3 % (0.1-2.0); Eosinophils # 0.1 K/mm3 (0.0-0.4); Eosinophils % 0.4 % (0.1-12.0); Hematocrit 45.1 % (42.0-52.0); Hemoglobin 15.4 g/dL (14.1-18.0); Lymphocytes % 11.5 % (10-50); Mean Corpuscular HGB Conc 34.1 g/dL (31.8-35.4); Mean Corpuscular Hemoglobin 29.7 pg (27.0-31.2); Mean Corpuscular Volume 87.1 fl (80-94); Mean Platelet Volume 8.5 fl (7.4-10.4); Monocytes # 1.8 K/mm3 (0.1-1.0); Neutrophils # 13.7 K/mm3 (1.8-7.8); Neutrophils % 77.2 % (37.0-80.0); Platelet Count 238 K/mm3 (142-424); Red Blood Count 5.18 M/mm3 (4.60-6.20); Red Cell Distribution Width 12.4 % (11.5-17.5); White Blood Count 17.8 K/mm3 (4.8-10.8)
--- NOTE | 2024-07-07 07:03 | EXP.SURG.CON ---
History of Present Illness *Admission Date: 07/07/24 *Reason for visit:: Appendicitis *History of present illness: This is a 48-year-old gentleman who presented to the emergency department overnight with increasing lower abdominal pain. A CT scan revealed changes consistent with appendicitis. He was admitted to the hospital service and surgical consultation was placed. He is currently on Zosyn and feels about the same . See HPI forwarded from admission H&P/emergency department evaluation below. Forwarded from admission H&P/emergency department evaluation: This is a 48-year-old male who has a past medical history significant for hypertension, hyperlipidemia, bicuspid aortic valve, sleep apnea, anxiety, and scoliosis who presents with a chief complaint of abdominal pain. Due to patient's symptoms, he presented to the emergency room for evaluation. While in the emergency room, CT scan of the abdomen pelvis was consistent with acute appendicitis. As a result of his findings, patient has been admitted for further management. During my evaluation of the patient, patient states he has been having intermittent abdominal pain in the right lower quadrant for the past 4 days. He reports the pain description has been sharp, stabbing, he consistent with heartburn. Patient states that ambulation makes pain worse. He is currently denying any chest pain, lightheadedness, dizziness, fever, chills, rigors, bilious emesis, nausea, shortness of breath, dyspnea, or diarrhea. Additional pertinent vitals obtained include a temperature of 101.5, heart rate of 102, white blood cell count of 18.5, neutrophils 80.6, sodium 135, and chloride of 97. [facility] Disclaimer: The information contained in this section may have been updated after the patient was seen, as this information can be updated by other users. Medical History Sleep apnea Anxiety Scoliosis HLD (hyperlipidemia) HTN (hypertension) Surgical History History of surgery on arm H/O excision of dermoid cyst Family History Grandfather Heart attack Grandmother Stroke Father Hypertension Other Family history of colon cancer Social History (Updated 07/07/24 @ 02:39 by Kandice Smith RN) Smoking Status: Current some day smoker alcohol intake: current alcohol intake frequency: a few times a week substance use type: denies use current occupational status: employed Travel in the last 8 weeks: Inside the [place] caffeine: Yes Have you lived/traveled outside US in past 30 days?: No Contact w/someone who lives/traveled outside US past 30 days?: No Exposure to someone with infectious disease in past 14 days?: No Do you have a fever (greater than 100.4 F or 38 C)?: No Have you tested positive for COVID-19: No Exposed to someone with COVID-19 in past 14 days?: No Do you have a sore throat?: No Do you have a cough?: No Do you have any weakness?: No Do you have any diarrhea?: No Are you experiencing any unusual bleeding?: No Do you have any muscle aches/pain?: No Do you have any abdominal pain?: Yes Are you experiencing loss of taste or smell?: No Review of Systems *Neurologic Neurologic: Reports system reviewed and no additional complaints, except as documented Meds Home Medications and Allergies Home Medications ?Medication ?Instructions ?Recorded ?Confirmed ?Type escitalopram oxalate 20 mg tablet 20 mg PO DAILY Anxiety 01/07/18 07/07/24 History (Lexapro) rosuvastatin 20 mg tablet 20 mg PO DAILY 02/03/24 07/07/24 History valsartan 80 mg tablet 80 mg PO DAILY 03/10/24 07/07/24 History New Prescriptions to Start Prescriptions: Allergies Allergy/AdvReac Type Severity Reaction Status Date / Time No Known Allergies Allergy Verified 05/10/24 08:46 Exam (Inpt) Vital signs and Labs for Last 24 Hours: Temp Pulse Resp BP Pulse Ox O2 Del Method 98.7 F 80 16 120/52 L 91 L Room Air 07/07/24 04:00 07/07/24 04:00 07/07/24 04:00 07/07/24 04:00 07/07/24 04:00 07/07/24 05:00 Laboratory Results - last 24 hr 07/07/24 00:19: WBC 18.5 H, RBC 5.37, Hgb 15.9, Hct 45.7, MCV 85.1, MCH 29.6, MCHC 34.8, RDW 12.3, Plt Count 245, MPV 8.3, Neut % (Auto) 80.6 H, Lymph % (Auto) 8.5 L, [place] % (Auto) 9.6 H, Eos % (Auto) 0.5, Baso % (Auto) 0.3, Neut # (Auto) 14.9 H, Lymph # (Auto) 1.6, [place] # (Auto) 1.8 H, Eos # (Auto) 0.1, Baso # (Auto) 0.1, Total Counted 100, Neutrophils % (Manual) 78 H, Lymphocytes % (Manual) 17, Monocytes % (Manual) 3, Eosinophils % (Manual) 2, Platelet Estimate Normal, RBC Morphology Normal, PT 10.3, INR 0.91, Sodium 135 L, Potassium 4.0, Chloride 97 L, Carbon Dioxide 27, Anion Gap 15.0, BUN 17, Creatinine 0.90, Estimated Creat Clear 166, Estimated GFR 90, Est GFR ( Amer) 109, Glucose 107 H, Lactate 0.8, Calcium 9.5, Total Bilirubin 0.6, AST 53, ALT 68, Alkaline Phosphatase 71, Total Protein 7.4, Albumin 4.8, Globulin 2.6, Albumin/Globulin Ratio 1.8, Lipase 46, SARS-CoV-2 (PCR) Not detected, Influenza A Untype (PCR) Not detected, Influenza Type B (PCR) Not detected 07/07/24 05:43: WBC 17.8 H, RBC 5.18, Hgb 15.4, Hct 45.1, MCV 87.1, MCH 29.7, MCHC 34.1, RDW 12.4, Plt Count 238, MPV 8.5, Neut % (Auto) 77.2, Lymph % (Auto) 11.5, [place] % (Auto) 10.0 H, Eos % (Auto) 0.4, Baso % (Auto) 0.3, Neut # (Auto) 13.7 H, Lymph # (Auto) 2.0, [place] # (Auto) 1.8 H, Eos # (Auto) 0.1, Baso # (Auto) 0.1 I & O for Labs for Last 24 Hours: Intake & Output 07/04/24 07/05/24 07/06/24 07/07/24 11:59 11:59 11:59 11:59 Output Total 0 / 0 Balance 0 / 0 Weight 361 lb 11.187 oz Constitutional: no acute distress Respiratory: Absent respiratory distress Cardiac: Absent Tachycardia GI: Present tenderness Results Labs 07/07/24 05:43 07/07/24 00:19 Labs: Laboratory Results - last 24 hr 07/07/24 00:19: WBC 18.5 H, RBC 5.37, Hgb 15.9, Hct 45.7, MCV 85.1, MCH 29.6, MCHC 34.8, RDW 12.3, Plt Count 245, MPV 8.3, Neut % (Auto) 80.6 H, Lymph % (Auto) 8.5 L, [place] % (Auto) 9.6 H, Eos % (Auto) 0.5, Baso % (Auto) 0.3, Neut # (Auto) 14.9 H, Lymph # (Auto) 1.6, [place] # (Auto) 1.8 H, Eos # (Auto) 0.1, Baso # (Auto) 0.1, Total Counted 100, Neutrophils % (Manual) 78 H, Lymphocytes % (Manual) 17, Monocytes % (Manual) 3, Eosinophils % (Manual) 2, Platelet Estimate Normal, RBC Morphology Normal, PT 10.3, INR 0.91, Sodium 135 L, Potassium 4.0, Chloride 97 L, Carbon Dioxide 27, Anion Gap 15.0, BUN 17, Creatinine 0.90, Estimated Creat Clear 166, Estimated GFR 90, Est GFR ( Amer) 109, Glucose 107 H, Lactate 0.8, Calcium 9.5, Total Bilirubin 0.6, AST 53, ALT 68, Alkaline Phosphatase 71, Total Protein 7.4, Albumin 4.8, Globulin 2.6, Albumin/Globulin Ratio 1.8, Lipase 46, SARS-CoV-2 (PCR) Not detected, Influenza A Untype (PCR) Not detected, Influenza Type B (PCR) Not detected 07/07/24 05:43: WBC 17.8 H, RBC 5.18, Hgb 15.4, Hct 45.1, MCV 87.1, MCH 29.7, MCHC 34.1, RDW 12.4, Plt Count 238, MPV 8.5, Neut % (Auto) 77.2, Lymph % (Auto) 11.5, [place] % (Auto) 10.0 H, Eos % (Auto) 0.4, Baso % (Auto) 0.3, Neut # (Auto) 13.7 H, Lymph # (Auto) 2.0, [place] # (Auto) 1.8 H, Eos # (Auto) 0.1, Baso # (Auto) 0.[address] scan - abdomen: report reviewed and image reviewed CT scan - pelvis: report reviewed and image reviewed Assessment and Plan *Assessment and plan (1) Acute appendicitis: Status: Acute Qualifiers: Acute appendicitis type: unspecified acute appendicitis type Qualified Code(s): K35.80 - Unspecified acute appendicitis Category: Medical Code(s): K35.80 - Unspecified acute appendicitis Plan Continue medical management as per primary service (antibiotics, etc.) Plan laparoscopic appendectomy this morning. I have discussed the risks and benefits including, but not limited to: Bleeding Infection Damage to surrounding tissue Inherent risks of sedation The patient agrees to proceed.
[2024-07-07 07:13] LABS: Chloride 101 mmol/L (98-107)
[2024-07-07 07:14] LABS: Potassium 4.2 mmoL/L (3.5-5.1); Sodium 135 mmol/L (136-145)
[2024-07-07 07:16] LABS: Blood Urea Nitrogen 17 mg/dl (9-20); Creatinine Clearance Estimated 123 mL/min (50-200); Estimated Glomerular Filt Rate 103 ml/min (>60); GFR (African American) 124 ML/MIN (>60)
[2024-07-07 07:17] LABS: Anion Gap 12.2 mEq/L (5-15); Calcium 9.2 mg/dl (8.4-10.2); Carbon Dioxide 26 mmol/L (22.0-30.0); Glucose 75 mg/dl (74-100)
--- NOTE | 2024-07-07 07:27 | PC.NURSE ---
Pt left floor via stretcher for surgery.
--- NOTE | 2024-07-07 07:49 | P.PNANES_ITS ---
[facility] Disclaimer: The information contained in this section may have been updated after the patient was seen, as this information can be updated by other users. Medical History Sleep apnea Anxiety Scoliosis HLD (hyperlipidemia) HTN (hypertension) Surgical History History of surgery on arm H/O excision of dermoid cyst Family History Grandfather Heart attack Grandmother Stroke Father Hypertension Other Family history of colon cancer Social History (Updated 07/07/24 @ 02:39 by Kandice Smith RN) Smoking Status: Current some day smoker alcohol intake: current alcohol intake frequency: a few times a week substance use type: denies use current occupational status: employed Travel in the last 8 weeks: Inside the [place] caffeine: Yes Have you lived/traveled outside US in past 30 days?: No Contact w/someone who lives/traveled outside US past 30 days?: No Exposure to someone with infectious disease in past 14 days?: No Do you have a fever (greater than 100.4 F or 38 C)?: No Have you tested positive for COVID-19: No Exposed to someone with COVID-19 in past 14 days?: No Do you have a sore throat?: No Do you have a cough?: No Do you have any weakness?: No Do you have any diarrhea?: No Are you experiencing any unusual bleeding?: No Do you have any muscle aches/pain?: No Do you have any abdominal pain?: Yes Are you experiencing loss of taste or smell?: No [facility] Anesthesia Checklist Patient Identification Patient Identification: Arm Band Structural Data Admitted From: Home Planned Operative Procedure/s: Laparoscopic Appendectomy Consent for Planned Operative Procedure(s) Verified: Yes Verified Documents: Surgical Consent and History and Physical NPO Status Verified Time NPO: 00:00 Additional verifications Anesthesia Reactions: No Hx Blood Transfusions: No Airway Assessment Mallampati Score:: Class II C-Spine Mobility Assessed: Yes TMJ Mobility Assessed: Yes Dentition: Good Dentition Neurological Assessment Level of Consciousness: Awake, Alert and Appropriate Anesthesia Plan Anesthesia Risk discussed: Yes Anesthesia Plan: Verified ASA Class: III Anesthesia Type: General
--- NOTE | 2024-07-07 08:06 | HMH.PHAINT1 ---
Pharmacy Intervention Comments: Home medication list verified using LIST FROM OUTPATIENT PHARMACY
[2024-07-07] MEDS: LIDOCAINE 1% 20ML MDV 20 ML ×2 (09:20→09:37)
[2024-07-07] MEDS: CEFTRIAXONE SODIUM 2 GM in 0.9 % SODIUM CHLORIDE 100 ML IV (09:32)
[2024-07-07] MEDS: METRONIDAZ/SOD CHL 500 MG/100 ML PIGGYBACK 100 MG IV (09:40)
--- NOTE | 2024-07-07 10:39 | P.OP_ITS ---
Date of procedure: 07/07/24 Pre-op Diagnosis:: Appendicitis Post-op Diagnosis:: Suppurative/necrotic appendicitis Procedure performed:: Laparoscopic appendectomy Surgeon:: Rich España MD [employer] O[employer]ATOR:: Abilio Murphy Anesthesia: GETA Estimated blood loss (mL): 15 Operative findings:: Severe inflammatory changes throughout mid abdomen and right lower quadrant Large volume of omentum surrounding necrotic appendix (densely adhesed concretions) Cloudy fluid surrounding necrotic appendix No single formed pocket of purulence No definitive evidence of large perforation Operative note:: After informed consent was obtained the patient was taken to the operating room and placed in the supine position. General anesthesia was induced and his abdomen was prepped and draped in a sterile fashion. After infiltration with local anesthetic a supraumbilical incision was made and a Veress needle was placed in position. The abdomen was insufflated and a 12 mm optical trocar was placed in position. Under direct visualization a 5 mm trocar was placed in the suprapubic position and an additional 5 mm trocar was placed in the left lower quadrant. Inspection revealed a large portion of inflamed omentum densely adhesed to the anterior abdominal wall and densely adhered around the necrotic/suppurative appendix. The adhesions essentially created concretions . Careful blunt dissection was utilized to free the densely adhesed/partially- necrotic omentum. Cloudy fluid surrounding the appendix was evacuated via suction. Additional cloudy fluid within the pelvis was evacuated. No single formed pocket of purulence was noted. The suppurative/necrotic appendix was carefully elevated. The mesoappendix was taken with harmonic stew with dissection remaining as close to the appendiceal serosa as possible. No obvious large perforation was noted. A dense adhesive band versus enlarged arteriole close to the base of the appendix was controlled via metallic clips (x 2). Harmonic stew were then used to complete the transection encroaching the appendiceal base. An Endopath 45 stapling device was then utilized to take the appendix at its base. The appendix was placed in a retrieval bag and removed through the supraumbilical trocar site. The entire region was thoroughly irrigated. No active bleeding or sign of injury was noted. Fascia at the supraumbilical trocar site was reapproximated utilizing the Neoclose device. All trocars were removed. Wounds were irrigated and skin was reapproximated with interrupted 4-0 Monocryl in a mattress fashion to facilitate hemostasis. Dressings were applied and the patient was transferred to recovery in stable condition after extubation. Condition: stable Disposition: PACU Specimens:: Appendix Complications:: No immediate
--- NOTE | 2024-07-07 11:15 | P.PNANES_ITS ---
[facility] Anesthesia Record Part I Anesthesia Record I Intake, IV Amount: 950 Hydration: Adequate Estimated blood loss (mL): 5 Urine output (mL): 0 Blood Products used (#): none Blood Pressure: 144/86 SaO2: 90 Pulse Rate: 82 Airway Patency: Patent Respiratory Rate: 14 Temperature: 97.4 F Patient is:: Drowsy and Stable Stable to PACU at:: 10:51
--- NOTE | 2024-07-07 12:01 | P.PNANES_ITS ---
[facility] Anesthesia Record Part II Anesthesia Record Part II Discharge Time: 11:20 Destination: Medical Surgical Department PACU nurse assessment reviewed?: Yes Patient Condition:: Good Anesthesia Complications:: None Swallowing reflex intact?: Yes Airway Patency: Patent Cyanosis?: No Blood Pressure: 136/94 SaO2: 93 Respiratory Rate: 16 Pulse Rate: 77 Temperature: 97.4 F Mental Status: Alert & Oriented Pain level:: 0 Nausea and/or vomitting:: None Intake, IV Amount: 0 Hydration: Adequate
[2024-07-07 14:23] LABS: Microscopic,Cath URINE MICROSCOPIC (MICROSCOPIC)
[2024-07-07 14:25] LABS: Appearance,Urine/Cath CLEAR (Clear); Bilirubin,Cath Negative (Negative); Blood, Urine/Cath Negative (Negative); Color,Urine/Cath YELLOW (Yellow); Glucose,Urine/Cath (UA) Negative (Negative); Ketones,Urine/Cath TRACE (Negative); Leukocyte Esterase,Cath Negative (Negative); Nitrate,Cath Negative (Negative); PH,Urine/Cath 6.5 (5.0-8.5); Protein,Urine/Cath TRACE (Negative); Urobilinogen,Cath 0.2 EU/dl (0.2)
[2024-07-07] MEDS: ENOXAPARIN 40MG/0.4ML SYRINGE 40 MG SUBCUT ×2 (14:50→20:08)
[2024-07-07 16:22] LABS: WBC,Urine/Cath Occasional #/hpf (0-3)
[2024-07-07] MEDS: ACETAMINOPHEN 325MG TAB 650 MG PO (16:34)
--- NOTE | 2024-07-07 17:38 | PC.NURSE ---
AOX4, 2LNC FOR O2 SUPPORT SINCE ARRIVAL TO FLOOR FROM SURGERY. LAPAROSCOPIC SITES C/D/I WITH DSG IN PLACE. MEDICATED FOR PAIN PER MAR WITH GOOD EFFECTIVENESS. PT DOES NOT WANT TO TAKE NORCO FOR PAIN. AMBULATED IN ROOM AND TOLERATED WELL. PO INTAKE ADEQUATE.
[2024-07-08] VITALS: BP 141/65; PULSE 78; RESP 18; TEMP 36.8; O2SAT 93
[2024-07-08] MEDS: HYDROCODONE/APAP 5/325 MG TABLET 1 TAB PO ×3 (00:38→11:42)
[2024-07-08] MEDS: ONDANSETRON 4MG/2ML VIAL 4 MG IV ×2 (00:45→18:23)
[2024-07-08 00:49] LABS: POC Glucose,Bedside 109 (70-110)
--- NOTE | 2024-07-08 00:52 | PC.NURSE ---
Pt is profusely sweating and admits to being cold. Pt temp is 98.6, Pt FSBS is 109. Pt denies any other signs or symptoms. This nurse added a warm blanket to pt and increased temp in room. Odilia Gil APRN aware.
[2024-07-08] MEDS: PIPERACILLIN/TAZO 4.5 GM in 0.9 % SODIUM CHLORIDE 100 ML IV ×4 (00:57→19:49)
[2024-07-08 04:00] VITALS: BP 133/73; PULSE 73; RESP 20; TEMP 36.7; O2SAT 95; BMI 36.1
--- NOTE | 2024-07-08 05:10 | PC.NURSE ---
Pt is A&Ox4 and currently tolerating RA well. Pt has rested intermittently this shift. Pt has c/o pain once and was treated per JUL. Pt abdominal incision remain clean and dry. (dressed with gauze and tegaderm). Pt denies gas, and has be tolerating full liquids well.
[2024-07-08 07:03] LABS: Basophils % 0.2 % (0.1-2.0); Eosinophils % 0.1 % (0.1-12.0); Hematocrit 43.2 % (42.0-52.0); Hemoglobin 14.5 g/dL (14.1-18.0); Lymphocytes # 1.4 K/mm3 (0.7-4.5); Lymphocytes % 9.2 % (10-50); Mean Corpuscular HGB Conc 33.6 g/dL (31.8-35.4); Mean Corpuscular Hemoglobin 29.4 pg (27.0-31.2); Mean Corpuscular Volume 87.6 fl (80-94); Mean Platelet Volume 8.3 fl (7.4-10.4); Monocytes # 1.1 K/mm3 (0.1-1.0); Monocytes % 6.9 % (1.7-9.3); Platelet Count 251 K/mm3 (142-424); Red Blood Count 4.93 M/mm3 (4.60-6.20); Red Cell Distribution Width 12.4 % (11.5-17.5); White Blood Count 15.6 K/mm3 (4.8-10.8)
[2024-07-08 07:14] LABS: Chloride 101 mmol/L (98-107)
[2024-07-08 07:15] LABS: Potassium 4.3 mmoL/L (3.5-5.1); Sodium 136 mmol/L (136-145)
[2024-07-08 07:17] LABS: Blood Urea Nitrogen 14 mg/dl (9-20); Creatinine Clearance Estimated 191 mL/min (50-200); Estimated Glomerular Filt Rate 103 ml/min (>60); GFR (African American) 124 ML/MIN (>60)
[2024-07-08 07:18] LABS: Anion Gap 12.3 mEq/L (5-15); Calcium 8.8 mg/dl (8.4-10.2); Carbon Dioxide 27 mmol/L (22.0-30.0); Glucose 112 mg/dl (74-100)
[2024-07-08 07:25] LABS: MANUAL DIFFERENTIAL MANUAL DIFFERENTIAL (MANUAL DIFF)
[2024-07-08 07:45] VITALS: BP 134/71; PULSE 71; RESP 16; TEMP 36.8; O2SAT 92
[2024-07-08] MEDS: ENOXAPARIN 40MG/0.4ML SYRINGE 40 MG SUBCUT ×2 (08:03→22:02)
[2024-07-08 08:28] LABS: Lymphocytes % 10 % (10-50); Monocytes % 13 % (2-9); Neutrophils % 75 % (42-76); Platelet Estimate Normal; Total Cells Counted 100
[2024-07-08 08:29] LABS: RBC Morphology Normal
[2024-07-08] MEDS: MORPHINE 2MG/ML SYRINGE 2 MG IV ×3 (08:44→15:41)
[2024-07-08] MEDS: CITALOPRAM 40MG TABLET 40 MG PO (08:46)
--- NOTE | 2024-07-08 09:38 | EXP.SURG.PN ---
Subjective Narrative: Spoke with patient and nurse via phone: No issues per nursing. Patient complains of soreness . He states the pain is different that before surgery...now just sore . Exam Data for Last 24 hours Vital signs and Labs for Last 24 Hours: Temp Pulse Resp BP Pulse Ox O2 Del Method O2 Flow Rate 98.2 F 71 16 134/71 92 L Room Air 2 07/08/24 07:45 07/08/24 07:45 07/08/24 07:45 07/08/24 07:45 07/08/24 07:45 07/08/24 09:00 07/07/24 15:50 Laboratory Results - last 24 hr 07/07/24 09:15: Urine Color Yellow, Urine Appearance Clear, Urine pH 6.5, Ur Specific [place] 1.020, Urine Protein Trace, Urine Glucose (UA) Negative, Urine Ketones Trace, Urine Blood Negative, Urine Nitrate Negative, Urine Bilirubin Negative, Urine Urobilinogen 0.2, Ur Leukocyte Esterase Negative, Urine RBC None, Urine WBC Occasional, Ur Squamous Epith Cells None, Urine Bacteria None 07/08/24 00:42: POC Glucose 109 07/08/24 06:38: WBC 15.6 H, RBC 4.93, Hgb 14.5, Hct 43.2, MCV 87.6, MCH 29.4, MCHC 33.6, RDW 12.4, Plt Count 251, MPV 8.3, Neut % (Auto) 83.0 H, Lymph % (Auto) 9.2 L, [place] % (Auto) 6.9, Eos % (Auto) 0.1, Baso % (Auto) 0.2, Neut # (Auto) 13.0 H, Lymph # (Auto) 1.4, [place] # (Auto) 1.1 H, Eos # (Auto) 0.0, Baso # (Auto) 0.0, Total Counted 100, Neutrophils % (Manual) 75, Band Neutrophils % 2.0, Lymphocytes % (Manual) 10, Monocytes % (Manual) 13 H, Platelet Estimate Normal, RBC Morphology Normal, Sodium 136, Potassium 4.3, Chloride 101, Carbon Dioxide 27, Anion Gap 12.3, BUN 14, Creatinine 0.80, Estimated Creat Clear 191, Estimated GFR 103, Est GFR ( Amer) 124, Glucose 112 H, Calcium 8.8 I & O for Last 24 hours: Intake & Output 07/05/24 07/06/24 07/07/24 07/08/24 11:59 11:59 11:59 11:59 Intake Total 950 / 950 840 / 840 Output Total 0 / 0 0 / 0 Balance 950 / 950 840 / 840 Weight 361 lb 11.187 oz 266 lb 9 oz Microbiology Reports for the Last 24 Hours: Microbiology 07/07/24 00:19 Blood Blood Culture - Preliminary NO GROWTH AFTER 24 HOURS 07/07/24 00:14 Blood Blood Culture - Preliminary NO GROWTH AFTER 24 HOURS Constitutional Comments: Deferred exam (spoke via phone). The patient was in no obvious distress. Progress Note: A&P Assessment and plan (1) Acute appendicitis: Problem details: Necrotic/suppurative appendicitis (see operative report for detail) Status: Acute Assessment and plan: continue abx continue pain control increase ambulation overall management as per primary service possible discharge later today or tomorrow (defer to primary service) close outpatient follow-up
--- NOTE | 2024-07-08 09:57 | P.PN_ITS ---
Subjective Narrative: Patient describes mostly abdominal soreness in his mid and lower abdomen. He states that this is different than prior to surgery. He is taking some full liquids but has limited appetite. Exam Data for Last 24 hours Vital signs and Labs for Last 24 Hours: Temp Pulse Resp BP Pulse Ox O2 Del Method O2 Flow Rate 98.2 F 71 16 134/71 92 L Room Air 2 07/08/24 07:45 07/08/24 07:45 07/08/24 07:45 07/08/24 07:45 07/08/24 07:45 07/08/24 09:00 07/07/24 15:50 Laboratory Results - last 24 hr 07/07/24 09:15: Urine Color Yellow, Urine Appearance Clear, Urine pH 6.5, Ur Specific [place] 1.020, Urine Protein Trace, Urine Glucose (UA) Negative, Urine Ketones Trace, Urine Blood Negative, Urine Nitrate Negative, Urine Bilirubin Negative, Urine Urobilinogen 0.2, Ur Leukocyte Esterase Negative, Urine RBC None, Urine WBC Occasional, Ur Squamous Epith Cells None, Urine Bacteria None 07/08/24 00:42: POC Glucose 109 07/08/24 06:38: WBC 15.6 H, RBC 4.93, Hgb 14.5, Hct 43.2, MCV 87.6, MCH 29.4, MCHC 33.6, RDW 12.4, Plt Count 251, MPV 8.3, Neut % (Auto) 83.0 H, Lymph % (Auto) 9.2 L, [place] % (Auto) 6.9, Eos % (Auto) 0.1, Baso % (Auto) 0.2, Neut # (Auto) 13.0 H, Lymph # (Auto) 1.4, [place] # (Auto) 1.1 H, Eos # (Auto) 0.0, Baso # (Auto) 0.0, Total Counted 100, Neutrophils % (Manual) 75, Band Neutrophils % 2.0, Lymphocytes % (Manual) 10, Monocytes % (Manual) 13 H, Platelet Estimate Normal, RBC Morphology Normal, Sodium 136, Potassium 4.3, Chloride 101, Carbon Dioxide 27, Anion Gap 12.3, BUN 14, Creatinine 0.80, Estimated Creat Clear 191, Estimated GFR 103, Est GFR ( Amer) 124, Glucose 112 H, Calcium 8.8 I & O for Last 24 hours: Intake & Output 07/05/24 07/06/24 07/07/24 07/08/24 11:59 11:59 11:59 11:59 Intake Total 950 / 950 840 / 840 Output Total 0 / 0 0 / 0 Balance 950 / 950 840 / 840 Weight 361 lb 11.187 oz 266 lb 9 oz Microbiology Reports for the Last 24 Hours: Microbiology 07/07/24 00:19 Blood Blood Culture - Preliminary NO GROWTH AFTER 24 HOURS 07/07/24 00:14 Blood Blood Culture - Preliminary NO GROWTH AFTER 24 HOURS *Routine Abdominal Exam Abdominal: Present tenderness and distended Comments: Abdomen somewhat distended. Dressings dry. Progress Note: A&P Assessment and plan (1) Acute appendicitis: Problem details: Necrotic/suppurative appendicitis (see operative report for detail) Status: Acute Assessment and plan: Likely has postoperative ileus. Still with leukocytosis although improving. Continue to limit to full liquids at this time. Encourage ambulation. Continue inpatient care due to leukocytosis and ileus for necrotizing appendicitis.
[2024-07-08 12:00] VITALS: BP 150/81; PULSE 82; RESP 16; TEMP 37.1; O2SAT 93
[2024-07-08 16:00] VITALS: BP 146/84; PULSE 84; RESP 16; TEMP 36.9; O2SAT 91
[2024-07-08 19:49] VITALS: BP 139/103; PULSE 90; RESP 17; TEMP 37.2; O2SAT 93
--- NOTE | 2024-07-08 21:29 | P.PN_ITS ---
Subjective *Date: 07/14/24 *Time: 15:39 Interval history: Recovery well postop. Does have postoperative ileus, patient agreeable to walking around in the hallways. Tolerating diet well. Exam Data for Last 24 hours Vital signs and Labs for Last 24 Hours: Temp Pulse Resp BP Pulse Ox O2 Del Method O2 Flow Rate 99.0 F 90 17 139/103 H 93 L Room Air 2 07/08/24 19:49 07/08/24 19:49 07/08/24 19:49 07/08/24 19:49 07/08/24 19:49 07/08/24 19:49 07/07/24 15:50 Laboratory Results - last 24 hr 07/08/24 00:42: POC Glucose 109 07/08/24 06:38: WBC 15.6 H, RBC 4.93, Hgb 14.5, Hct 43.2, MCV 87.6, MCH 29.4, MCHC 33.6, RDW 12.4, Plt Count 251, MPV 8.3, Neut % (Auto) 83.0 H, Lymph % (Auto) 9.2 L, [place] % (Auto) 6.9, Eos % (Auto) 0.1, Baso % (Auto) 0.2, Neut # (Auto) 13.0 H, Lymph # (Auto) 1.4, [place] # (Auto) 1.1 H, Eos # (Auto) 0.0, Baso # (Auto) 0.0, Total Counted 100, Neutrophils % (Manual) 75, Band Neutrophils % 2.0, Lymphocytes % (Manual) 10, Monocytes % (Manual) 13 H, Platelet Estimate Normal, RBC Morphology Normal, Sodium 136, Potassium 4.3, Chloride 101, Carbon Dioxide 27, Anion Gap 12.3, BUN 14, Creatinine 0.80, Estimated Creat Clear 191, Estimated GFR 103, Est GFR ( Amer) 124, Glucose 112 H, Calcium 8.8 I & O for Last 24 hours: Intake & Output 07/05/24 07/06/24 07/07/24 07/08/24 23:59 23:59 23:59 23:59 Intake Total 1430 / 1790 1680 / 1680 Output Total 0 / 0 Balance 1430 / 1790 1680 / 1680 Weight 117.934 kg 164.064 kg 120.911 kg Microbiology Reports for the Last 24 Hours: Microbiology 07/07/24 00:19 Blood Blood Culture - Preliminary NO GROWTH AFTER 24 HOURS 07/07/24 00:14 Blood Blood Culture - Preliminary NO GROWTH AFTER 24 HOURS Constitutional Constitutional: no acute distress *Routine HEENT Exam Head: Present normocephalic Eye: Present EOMI and PERRL ENT: Present mucous membranes moist *Routine Neck Exam Neck: Present supple; Absent lymphadenopathy *Routine Respiratory Exam Respiratory: Absent respiratory distress *Routine Cardiovascular Exam Cardiovascular: Absent tachycardia *Routine Abdominal Exam Abdominal: Present soft Comments: Appropriately tender (improving). Distended with hypoactive bowel sounds. *Routine Extremities Exam Extremities: Absent cyanosis, clubbing or edema *Routine Skin Exam Skin: Present warm; Absent rash *Routine Neurological Exam Neurological: Present alert and oriented X3 Assessment and Plan *Assessment and plan (1) Obesity: Status: Chronic Qualifiers: Obesity type: due to excess calories Obesity classification: adult class 2 (BMI 35 - 39.9) Serious obesity comorbidity presence: without serious comorbidity Body mass index: BMI 35.0-35.9 Qualified Code(s): E66.812 - Obesity, class 2; E66.09 - Other obesity due to excess calories; Z68.35 - Body mass index [BMI] 35.0-35.9, adult Category: Medical Code(s): E66.9 - Obesity, unspecified (2) Anxiety: Status: Acute Category: Medical Code(s): F41.9 - Anxiety disorder, unspecified (3) Postoperative ileus: Status: Acute Category: Medical Code(s): K91.89 - Other postprocedural complications and disorders of digestive system; K56.7 - Ileus, unspecified (4) Leukocytosis: Status: Acute Qualifiers: Leukocytosis type: unspecified Qualified Code(s): D72.829 - Elevated white blood cell count, unspecified Category: Medical Code(s): D72.829 - Elevated white blood cell count, unspecified (5) Acute appendicitis: Problem Comment: Necrotic/suppurative appendicitis (see operative report for detail) Status: Acute Qualifiers: Acute appendicitis type: unspecified acute appendicitis type Qualified Code(s): K35.80 - Unspecified acute appendicitis Category: Medical Code(s): K35.80 - Unspecified acute appendicitis Plan Girish Tate is a 48-year-old male who presented with abdominal pain and admitted for acute appendicitis s/p laparoscopic appendectomy. Hospital course complicated by postoperative ileus. #Acute appendicitis #Postoperative ileus ? S/p laparoscopic appendectomy 07/07/2024. Patient tolerated procedure well. ? Patient unfortunately does have a postoperative ileus. Continues to have hypoactive bowel sounds today. ? Feeling very bloated today, but is passing gas. Had 2 small bowel movements overnight after suppository. ? Will de-escalate diet to clear liquid diet given intolerance to full liquid diet, had an episode of nausea/vomiting. ? Continue simethicone 160 mg 3 times daily. ? Encourage ambulation, has been ambulating around the hallways. ? Electrolytes stable. ? WBC improved to 15.4 today. Continue Zosyn for now. ? Anticipate transitioning to oral antibiotics as ileus improves. ? General Surgery following, appreciate recommendations as above. ? [place] as needed for pain control. #Anxiety/depression ? Continue citalopram 40 mg. Full code DVT prophylaxis: Lovenox 40 mg
[2024-07-08] MEDS: BISACODYL 10MG SUPP 10 MG RC (22:36)
[2024-07-09] VITALS: BP 151/84; PULSE 77; RESP 17; TEMP 36.9; O2SAT 92
[2024-07-09] MEDS: PIPERACILLIN/TAZO 4.5 GM in 0.9 % SODIUM CHLORIDE 100 ML IV ×4 (01:35→18:02)
[2024-07-09 04:00] VITALS: BP 137/86; PULSE 79; RESP 16; TEMP 37; O2SAT 93; BMI 36.0
[2024-07-09 07:17] LABS: Basophils % 0.3 % (0.1-2.0); Eosinophils % 0.1 % (0.1-12.0); Hematocrit 46.3 % (42.0-52.0); Hemoglobin 15.7 g/dL (14.1-18.0); Lymphocytes # 1.4 K/mm3 (0.7-4.5); Lymphocytes % 8.9 % (10-50); Mean Corpuscular HGB Conc 33.9 g/dL (31.8-35.4); Mean Corpuscular Hemoglobin 29.1 pg (27.0-31.2); Mean Corpuscular Volume 85.7 fl (80-94); Mean Platelet Volume 8.2 fl (7.4-10.4); Monocytes # 1.3 K/mm3 (0.1-1.0); Monocytes % 8.4 % (1.7-9.3); Neutrophils # 12.6 K/mm3 (1.8-7.8); Neutrophils % 81.8 % (37.0-80.0); Platelet Count 325 K/mm3 (142-424); Red Cell Distribution Width 12.6 % (11.5-17.5); White Blood Count 15.4 K/mm3 (4.8-10.8)
[2024-07-09 07:21] LABS: MANUAL DIFFERENTIAL MANUAL DIFFERENTIAL (MANUAL DIFF)
[2024-07-09 07:34] LABS: Chloride 99 mmol/L (98-107); Sodium 134 mmol/L (136-145)
[2024-07-09 07:37] LABS: Blood Urea Nitrogen 17 mg/dl (9-20); Carbon Dioxide 25 mmol/L (22.0-30.0); Creatinine Clearance Estimated 169 mL/min (50-200); Estimated Glomerular Filt Rate 90 ml/min (>60); GFR (African American) 109 ML/MIN (>60)
[2024-07-09 07:38] LABS: Calcium 8.7 mg/dl (8.4-10.2); Glucose 118 mg/dl (74-100)
--- NOTE | 2024-07-09 07:55 | PC.NURSE ---
Pt. is alert and orientated x 4. Pt. c/o low abdominal discomfort and constipation overnight. Pt. was nauseated and did not want anything oral most of the night. the nausea cleared up. Pt. received a Ducolax suppistory and had a very small 2 hard lumps of stool. He also staes he passed a lot of gas. Pt. slept off and on, IV fluids infusing. VSS. Personal items and call karimi in reach.
[2024-07-09 08:00] VITALS: BP 152/90; PULSE 81; RESP 20; TEMP 37; O2SAT 91
[2024-07-09 08:05] LABS: Lymphocytes % 7 % (10-50); Monocytes % 7 % (2-9); Neutrophils % 86 % (42-76); Platelet Estimate Normal; RBC Morphology Normal; Total Cells Counted 100
[2024-07-09] MEDS: ENOXAPARIN 40MG/0.4ML SYRINGE 40 MG SUBCUT ×2 (08:25→20:15)
[2024-07-09] MEDS: CITALOPRAM 40MG TABLET 40 MG PO (08:25)
--- NOTE | 2024-07-09 09:26 | P.PN_ITS ---
Subjective Narrative: Patient states that his abdominal pain may be slightly improved. He did vomit yesterday evening. Has had a couple of tiny bowel movements. Describes symptoms of acid reflux . Also feels that his abdominal distention is limiting his deep breathing. He is ambulating. Exam Data for Last 24 hours Vital signs and Labs for Last 24 Hours: Temp Pulse Resp BP Pulse Ox O2 Del Method O2 Flow Rate 98.6 F 81 20 152/90 H 91 L Room Air 2 07/09/24 08:00 07/09/24 08:00 07/09/24 08:00 07/09/24 08:00 07/09/24 08:00 07/09/24 08:00 07/07/24 15:50 Laboratory Results - last 24 hr 07/09/24 06:37: WBC 15.4 H, RBC 5.40, Hgb 15.7, Hct 46.3, MCV 85.7, MCH 29.1, MCHC 33.9, RDW 12.6, Plt Count 325 D, MPV 8.2, Neut % (Auto) 81.8 H, Lymph % (Auto) 8.9 L, [place] % (Auto) 8.4, Eos % (Auto) 0.1, Baso % (Auto) 0.3, Neut # (Auto) 12.6 H, Lymph # (Auto) 1.4, [place] # (Auto) 1.3 H, Eos # (Auto) 0.0, Baso # (Auto) 0.0, Total Counted 100, Neutrophils % (Manual) 86 H, Lymphocytes % (Manu al) 7 L, Monocytes % (Manual) 7, Platelet Estimate Normal, RBC Morphology Normal, Sodium 134 L, Potassium 4.0, Chloride 99, Carbon Dioxide 25, Anion Gap 14.0, BUN 17, Creatinine 0.90, Estimated Creat Clear 169, Estimated GFR 90, Est GFR ( Amer) 109, Glucose 118 H, Calcium 8.7 I & O for Last 24 hours: Intake & Output 07/06/24 07/07/24 07/08/24 07/09/24 11:59 11:59 11:59 11:59 Intake Total 950 / 950 1320 / 1320 1140 / 1140 Output Total 0 / 0 0 / 0 0 / 0 Balance 950 / 950 1320 / 1320 1140 / 1140 Weight 361 lb 11.187 oz 266 lb 9 oz 266 lb Microbiology Reports for the Last 24 Hours: Microbiology 07/07/24 00:14 Blood Blood Culture - Preliminary NO GROWTH AFTER 48 HOURS 07/07/24 00:19 Blood Blood Culture - Preliminary NO GROWTH AFTER 48 HOURS *Routine Abdominal Exam Comments: Significantly distended. Progress Note: A&P Assessment and plan (1) Acute appendicitis: Problem details: Necrotic/suppurative appendicitis (see operative report for detail) Status: Acute Assessment and plan: Continue to limit to full liquid diet. Seems to have a profound ileus. Leukocytosis stable. Continue IV antibiotics. Encourage ambulation. I will check an acute abdominal series as a baseline.
--- NOTE | 2024-07-09 09:28 | XR_ITS ---
PROCEDURE INFORMATION: Exam: XR Complete Acute Abdomen Series Including Chest Exam date and time: 07/09/2024 11:27 AM Age: 48 years old Clinical indication: Other: Abdominal distension and pain, S/P appendectomy TECHNIQUE: Imaging protocol: Radiologic exam. Complete acute abdomen series, including 2 or more views of the abdomen and a single view chest. Total images: 5 COMPARISON: CT ABDOMEN PELVIS W CON 07/07/2024 1:05 AM FINDINGS: Lungs: Atelectatic changes noted within the lung bases. Pleural spaces: Normal. No pleural effusions. No pneumothorax. Heart/Mediastinum: Heart demonstrates mild diffuse enlargement. Diaphragm: There is nonspecific elevation of the right hemidiaphragm. Gastrointestinal tract: Gas-filled loops of small bowel present with air-fluid levels consistent with ileus. Developing small bowel obstruction can not be excluded. Short-term follow-up is recommended. Intraperitoneal space: Surgical clip noted within the right lower quadrant. Bones/joints: Degenerative changes of the thoracolumbar spine. Soft tissues: Normal. IMPRESSION: 1. Gas-filled loops of small bowel present with air-fluid levels consistent with ileus. Developing small bowel obstruction can not be excluded. Short-term follow-up is recommended. 2. Mild cardiomegaly. 3. Atelectatic changes noted within the lung bases.
[2024-07-09] MEDS: SIMETHICONE 80MG CHEWABLE TABLET 160 MG PO ×2 (11:43→20:15)
[2024-07-09 11:44] VITALS: BP 146/93; PULSE 78; RESP 18; TEMP 37.2; O2SAT 91
[2024-07-09 16:00] VITALS: BP 156/101; PULSE 85; RESP 18; TEMP 36.9; O2SAT 92
--- NOTE | 2024-07-09 17:32 | PC.NURSE ---
Pt has done fair this shift. He has been refusing pain medication this shift when pain is assessed. Reports not of his pain is a sharp gas pain x-ray series of belly done today showing lots of gas in his small bowel. New orders today for gas-x. Pt stated that it has helped some. Pt has been encouraged to ambulate as much as he can to aide in passing gas and to move his bowels. down graded from full liquids to clears. BP has been elevated slightly this shift. other VSS.
--- NOTE | 2024-07-09 18:28 | P.PN_ITS ---
Subjective *Date: 07/09/24 *Time: 18:35 Interval history: Continues to have an ileus, had an episode of nausea/vomiting overnight. Passing gas. Had 2 small bowel meds overnight after suppository. De-escalated to clear liquid diet given intolerance to liquid diet. Exam Data for Last 24 hours Vital signs and Labs for Last 24 Hours: Temp Pulse Resp BP Pulse Ox O2 Del Method O2 Flow Rate 98.4 F 85 18 156/101 H 92 L Room Air 2 07/09/24 16:07/09/24 16:07/09/24 16:07/09/24 16:00 07/09/24 16:00 07/09/24 17:00 07/07/24 15:50 Laboratory Results - last 24 hr 07/09/24 06:37: WBC 15.4 H, RBC 5.40, Hgb 15.7, Hct 46.3, MCV 85.7, MCH 29.1, MCHC 33.9, RDW 12.6, Plt Count 325 D, MPV 8.2, Neut % (Auto) 81.8 H, Lymph % (Auto) 8.9 L, [place] % (Auto) 8.4, Eos % (Auto) 0.1, Baso % (Auto) 0.3, Neut # (Auto) 12.6 H, Lymph # (Auto) 1.4, [place] # (Auto) 1.3 H, Eos # (Auto) 0.0, Baso # (Auto) 0.0, Total Counted 100, Neutrophils % (Manual) 86 H, Lymphocytes % (Manual) 7 L, Monocytes % (Manual) 7, Platelet Estimate Normal, RBC Morphology Normal, Sodium 134 L, Potassium 4.0, Chloride 99, Carbon Dioxide 25, Anion Gap 14.0, BUN 17, Creatinine 0.90, Estimated Creat Clear 169, Estimated GFR 90, Est GFR ( Amer) 109, Glucose 118 H, Calcium 8.7 I & O for Last 24 hours: Intake & Output 07/06/24 07/07/24 07/08/24 07/09/24 23:59 23:59 23:59 23:59 Intake Total 1430 / 1790 1679 900 / 900 Output Total 0 / 0 0 / 0 0 / 0 Balance [id number] 900 / 900 Weight 117.934 kg 164.064 kg 120.911 kg 120.656 kg Microbiology Reports for the Last 24 Hours: Microbiology 07/07/24 00:14 Blood Blood Culture - Preliminary NO GROWTH AFTER 48 HOURS 07/07/24 00:19 Blood Blood Culture - Preliminary NO GROWTH AFTER 48 HOURS Constitutional Constitutional: no acute distress *Routine HEENT Exam Head: Present normocephalic Eye: Present EOMI and PERRL ENT: Present mucous membranes moist *Routine Neck Exam Neck: Present supple; Absent lymphadenopathy *Routine Respiratory Exam Respiratory: Present CTA bilaterally *Routine Cardiovascular Exam Cardiovascular: Present RRR *Routine Abdominal Exam Abdominal: Present soft and normoactive bowel sounds; Absent tenderness Comments: Significantly distended. No bowel sounds. Minimal tenderness to palpation. *Routine Extremities Exam Extremities: Absent cyanosis, clubbing or edema *Routine Skin Exam Skin: Present warm; Absent rash *Routine Neurological Exam Neurological: Present alert and oriented X3 Assessment and Plan *Assessment and plan (1) Acute appendicitis: Problem Comment: Necrotic/suppurative appendicitis (see operative report for detail) Status: Acute Qualifiers: Acute appendicitis type: unspecified acute appendicitis type Qualified Code(s): K35.80 - Unspecified acute appendicitis Category: Medical Code(s): K35.80 - Unspecified acute appendicitis Plan Girish Tate is a 48-year-old male who presented with abdominal pain and admitted for acute appendicitis s/p laparoscopic appendectomy. Hospital course complicated by postoperative ileus. #Acute appendicitis #Postoperative ileus ? S/p laparoscopic appendectomy 07/07/2024. Patient tolerated procedure well. WBC improved to 15.4 today. ? Patient unfortunately does have a postoperative ileus. Feeling very bloated today, but is passing gas. Had 2 small bowel movements overnight after s uppository. ? Will de-escalate diet to clear liquid diet given intolerance to full liquid diet, had an episode of nausea/vomiting. ? Continue simethicone 160 mg 3 times daily. ? Encourage ambulation, has been ambulating around the hallways. ? Electrolytes stable. ? Continue Zosyn for now. ? Anticipate transitioning to oral antibiotics as ileus improves. ? General Surgery following, appreciate recommendations as above. Started Protonix for GI prophylaxis. ? [place] as needed for pain control. #Anxiety/depression ? Continue citalopram 40 mg. Full code DVT prophylaxis: Lovenox 40 mg
[2024-07-09 20:00] VITALS: BP 164/97; PULSE 89; RESP 16; TEMP 36.9; O2SAT 92
[2024-07-09] MEDS: HYDRALAZINE 20MG/ML VIAL 10 MG IV (20:14)
[2024-07-09] MEDS: PANTOPRAZOLE 40MG VIAL 40 MG IV (20:15)
[2024-07-10] VITALS: BP 153/82; PULSE 86; RESP 16; TEMP 37.4; O2SAT 92
[2024-07-10] MEDS: PIPERACILLIN/TAZO 4.5 GM in 0.9 % SODIUM CHLORIDE 100 ML IV ×4 (01:06→18:11)
[2024-07-10 04:00] VITALS: BP 154/90; PULSE 84; RESP 16; TEMP 37; O2SAT 93; BMI 36.0
--- NOTE | 2024-07-10 04:44 | PC.NURSE ---
Pt is A/O X 4. He continues to report feeling bloated with tender abdomen. BS sluggish to all 4 quads. He reports being able to pass some gas. He has been up to BR and had what he reports as 2 liquid BMs and the last BM having some stool . He reports only small amounts. Offered pt suppository and/or prune juice which he declined both. Encouraged pt to ambulate and he reports he is walking to the BR and also sat up in the chair for a while but has not ambulated in the lea this shift. BP elevated early in the shift, reported to Kathy Laura ACNP with order for IV Hydralazine , see MAR
[2024-07-10 05:54] LABS: Basophils % 0.3 % (0.1-2.0); Eosinophils # 0.1 K/mm3 (0.0-0.4); Eosinophils % 0.3 % (0.1-12.0); Hematocrit 46.8 % (42.0-52.0); Hemoglobin 16.1 g/dL (14.1-18.0); Lymphocytes # 1.6 K/mm3 (0.7-4.5); Lymphocytes % 10.8 % (10-50); Mean Corpuscular HGB Conc 34.4 g/dL (31.8-35.4); Mean Corpuscular Hemoglobin 29.5 pg (27.0-31.2); Mean Corpuscular Volume 85.7 fl (80-94); Mean Platelet Volume 8.1 fl (7.4-10.4); Monocytes # 1.6 K/mm3 (0.1-1.0); Monocytes % 10.4 % (1.7-9.3); Neutrophils # 11.8 K/mm3 (1.8-7.8); Neutrophils % 77.5 % (37.0-80.0); Platelet Count 370 K/mm3 (142-424); Red Blood Count 5.46 M/mm3 (4.60-6.20); Red Cell Distribution Width 12.5 % (11.5-17.5); White Blood Count 15.2 K/mm3 (4.8-10.8)
[2024-07-10 05:56] LABS: MANUAL DIFFERENTIAL MANUAL DIFFERENTIAL (MANUAL DIFF)
[2024-07-10 06:03] LABS: Chloride 98 mmol/L (98-107); Potassium 3.8 mmoL/L (3.5-5.1); Sodium 132 mmol/L (136-145)
[2024-07-10 06:06] LABS: Anion Gap 10.8 mEq/L (5-15); Blood Urea Nitrogen 18 mg/dl (9-20); Carbon Dioxide 27 mmol/L (22.0-30.0); Creatinine Clearance Estimated 169 mL/min (50-200); Estimated Glomerular Filt Rate 90 ml/min (>60); GFR (African American) 109 ML/MIN (>60)
[2024-07-10 06:07] LABS: Calcium 8.8 mg/dl (8.4-10.2); Glucose 111 mg/dl (74-100)
[2024-07-10 07:18] LABS: Lymphocytes % 15 % (10-50); Monocytes % 7 % (2-9); Neutrophils % 78 % (42-76); Platelet Estimate Normal; RBC Morphology Normal; Total Cells Counted 100
--- NOTE | 2024-07-10 07:54 | EXP.SURG.PN ---
Subjective Narrative: Patient showed significant signs of ileus. Acute abdominal series revealed findings consistent with appreciable ileus. Diet de-escalated to clear liquids. I had started pantoprazole and simethicone yesterday. He has had some small liquid bowel movements. Patient had a large episode of vomiting this morning. He describes it as resembling bile . Exam Data for Last 24 hours Vital signs and Labs for Last 24 Hours: Temp Pulse Resp BP Pulse Ox O2 Del Method O2 Flow Rate 98.6 F 84 16 154/90 H 93 L Room Air 2 07/10/24 04:00 07/10/24 04:00 07/10/24 04:00 07/10/24 04:00 07/10/24 04:00 07/10/24 07:00 07/07/24 15:50 Laboratory Results - last 24 hr 07/09/24 06:37: Total Counted 100, Neutrophils % (Manual) 86 H, Lymphocytes % (Manual) 7 L, Monocytes % (Manual) 7, Platelet Estimate Normal, RBC Morphology Normal 07/10/24 05:32: WBC 15.2 H, RBC 5.46, Hgb 16.1, Hct 46.8, MCV 85.7, MCH 29.5, MCHC 34.4, RDW 12.5, Plt Count 370, MPV 8.1, Neut % (Auto) 77.5, Lymph % (Auto) 10.8, [place] % (Auto) 10.4 H, Eos % (Auto) 0.3, Baso % (Auto) 0.3, Neut # (Auto) 11.8 H, Lymph # (Auto) 1.6, [place] # (Auto) 1.6 H, Eos # (Auto) 0.1, Baso # (Auto) 0.0, Total Counted 100, Neutrophils % (Manual) 78 H, Lymphocytes % (Manual) 15, Monocytes % (Manual) 7, Platelet Estimate Normal, RBC Morphology Normal, Sodium 132 L, Potassium 3.8, Chloride 98, Carbon Dioxide 27, Anion Gap 10.8, BUN 18, Creatinine 0.90, Estimated Creat Clear 169, Estimated GFR 90, Est GFR ( Amer) 109, Glucose 111 H, Calcium 8.8 I & O for Last 24 hours: Intake & Output 07/07/24 07/08/24 07/09/24 07/10/24 11:59 11:59 11:59 11:59 Intake Total 950 / 950 1320 / 1320 1540 / 1540 300 / 300 Output Total 0 / 0 0 / 0 0 / 0 0 / 0 Balance 950 / 950 1320 / 1320 1540 / 1540 300 / 300 Weight 361 lb 11.187 oz 266 lb 9 oz 266 lb 266 lb *Routine Abdominal Exam Abdominal: Present distended Comments: Appreciably distended. Incisions clean. Some blistering from dressing due to abdominal distention. Progress Note: A&P Assessment and plan (1) Acute appendicitis: Problem details: Necrotic/suppurative appendicitis (see operative report for detail) Status: Acute Assessment and plan: Patient has ongoing significant ileus with episode of vomiting. I instructed him to limit his liquid intake. He is to continue ambulation. Recommend consider chewing gum.
[2024-07-10 08:00] VITALS: BP 150/87; PULSE 90; RESP 18; TEMP 36.7; O2SAT 92
[2024-07-10] MEDS: CITALOPRAM 40MG TABLET 40 MG PO (08:05)
[2024-07-10] MEDS: ENOXAPARIN 40MG/0.4ML SYRINGE 40 MG SUBCUT (08:05)
[2024-07-10] MEDS: PANTOPRAZOLE 40MG VIAL 40 MG IV ×2 (08:05→20:30)
[2024-07-10] MEDS: SODIUM CHLORIDE 0.9% 10ML VIAL 10 ML IV (08:05)
[2024-07-10] MEDS: SIMETHICONE 80MG CHEWABLE TABLET 160 MG PO ×3 (08:06→20:30)
[2024-07-10] MEDS: NEOMYCIN-POLYMYXIN-BACIT OINT 15GM TUBE TP ×2 (09:16→20:35)
--- NOTE | 2024-07-10 10:28 | EXP.PHA.PN ---
Subjective *Date: 07/10/24 *Time: 10:28 Medical Exam Vital signs and Labs for Last 24 Hours: Vital Signs Temp Pulse Pulse Resp BP Pulse Ox O2 Del Method 07/10/24 09:00 Room Air 07/10/24 08:00 98.1 F 90 18 150/87 H 92 L Room Air 07/10/24 07:00 Room Air 07/10/24 04:56 Room Air 07/10/24 04:00 98.6 F 84 16 154/90 H 93 L Room Air 07/10/24 03:00 Room Air 07/10/24 01:00 Room Air 07/10/24 00:00 99.4 F 86 16 153/82 H 92 L Room Air 07/09/24 23:00 Room Air 07/09/24 21:00 Room Air 07/09/24 20:00 92 L Room Air 07/09/24 20:00 98.5 F 89 16 164/97 H 92 L Room Air 07/09/24 19:00 Room Air 07/09/24 17:00 Room Air 07/09/24 16:00 98.4 F 85 18 156/101 H 92 L Room Air 07/09/24 15:00 Room Air 07/09/24 13:00 Room Air 07/09/24 11:44 99.0 F 78 18 146/93 H 91 L Room Air 07/09/24 11:00 Room Air Intake and Output 07/09/24 07/10/24 07/10/24 23:59 07:59 15:59 Intake Total 100 / 340 240 / 340 Output Total 0 / 0 0 / 0 0 / 0 Balance 0 / 1000 100 / 340 240 / 340 Intake: Intake, Oral Amount 240 / 240 Intake, Total IV Amount 100 / 100 Piperacillin/Tazo 4.5 gm In 0.9 100 / 100 % Sodium Chloride 100 ml @ 200 mls/hr IV Q6H [facility] Rx#:[id number] Output: Output, Urine Amount 0 / 0 0 / 0 0 / 0 Other: Number of Unmeasured Voids 1 1 1 Number of Bowel Movements 1 1 Weight 120.656 kg Patient Weight 07/10/24 23:59 Weight 120.656 kg Laboratory Results - last 24 hr 07/10/24 05:32: WBC 15.2 H, RBC 5.46, Hgb 16.1, Hct 46.8, MCV 85.7, MCH 29.5, MCHC 34.4, RDW 12.5, Plt Count 370, MPV 8.1, Neut % (Auto) 77.5, Lymph % (Auto) 10.8, [place] % (Auto) 10.4 H, Eos % (Auto) 0.3, Baso % (Auto) 0.3, Neut # (Auto) 11.8 H, Lymph # (Auto) 1.6, [place] # (Auto) 1.6 H, Eos # (Auto) 0.1, Baso # (Auto) 0.0, Total Counted 100, Neutrophils % (Manual) 78 H, Lymphocytes % (Manual) 15, Monocytes % (Manual) 7, Platelet Estimate Normal, RBC Morphology Normal, Sodium 132 L, Potassium 3.8, Chloride 98, Carbon Dioxide 27, Anion Gap 10.8, BUN 18, Creatinine 0.90, Estimated Creat Clear 169, Estimated GFR 90, Est GFR ( Amer) 109, Glucose 111 H, Calcium 8.8 I & O for Labs for Last 24 Hours: Intake & Output 07/07/24 07/08/24 07/09/24 07/10/24 23:59 23:59 23:59 23:59 Intake Total 1430 / 1790 1679 / 1979 900 / 1000 340 / 340 Output Total 0 / 0 0 / 0 0 / 0 0 / 0 Balance 1430 / 1790 1679 / 1979 900 / 1000 340 / 340 Weight 164.064 kg 120.911 kg 120.656 kg 120.656 kg The patient's infection will respond to the chosen ABx?: Yes Is the patient receiving the right drug, dose, and route?: Yes Could a more targeted ABx be ordered?: No (WBC 15.2, AFEBRILE, APPENDICITIS, CONTINUE CURRENT ABX.)
--- NOTE | 2024-07-10 10:29 | PC.NURSE ---
Transitioned care to CRISTINA Chavez
[2024-07-10 12:00] VITALS: BP 154/97; PULSE 83; RESP 20; TEMP 37.1; O2SAT 93
[2024-07-10 14:32] VITALS: BMI 36.0
[2024-07-10 16:00] VITALS: BP 155/94; PULSE 82; RESP 18; TEMP 37.4; O2SAT 94
--- NOTE | 2024-07-10 17:57 | PC.NURSE ---
Pt had done well this shift. He has had multiple loose BM's this shift. Reports less pain today. He stated that he is aggravated that he feels like he is not getting better. VSS. Remains on room air. He has ambulated x1 in the hallway today and has been educated to walk as much as possible, v/u. He does having chewing gum at bedside.
--- NOTE | 2024-07-10 19:42 | P.PN_ITS ---
Subjective *Date: 07/10/24 *Time: 19:42 Interval history: Patient feeling better today. Less abdominal distention, soreness. Continues to have bowel movements, gas. However, no bowel sounds yet. Exam Data for Last 24 hours Vital signs and Labs for Last 24 Hours: Temp Pulse Resp BP Pulse Ox O2 Del Method O2 Flow Rate 99.3 F 82 18 155/94 H 94 L Room Air 2 07/10/24 16:00 07/10/24 16:00 07/10/24 16:00 07/10/24 16:00 07/10/24 16:00 07/10/24 18:41 07/07/24 15:50 Laboratory Results - last 24 hr 07/10/24 05:32: WBC 15.2 H, RBC 5.46, Hgb 16.1, Hct 46.8, MCV 85.7, MCH 29.5, MCHC 34.4, RDW 12.5, Plt Count 370, MPV 8.1, Neut % (Auto) 77.5, Lymph % (Auto) 10.8, [place] % (Auto) 10.4 H, Eos % (Auto) 0.3, Baso % (Auto) 0.3, Neut # (Auto) 11.8 H, Lymph # (Auto) 1.6, [place] # (Auto) 1.6 H, Eos # (Auto) 0.1, Baso # (Auto) 0.0, Total Counted 100, Neutrophils % (Manual) 78 H, Lymphocytes % (Manual) 15, Monocytes % (Manual) 7, Platelet Estimate Normal, RBC Morphology Normal, Sodium 132 L, Potassium 3.8, Chloride 98, Carbon Dioxide 27, Anion Gap 10.8, BUN 18, Creatinine 0.90, Estimated Creat Clear 169, Estimated GFR 90, Est GFR ( Amer) 109, Glucose 111 H, Calcium 8.8 I & O for Last 24 hours: Intake & Output 07/07/24 07/08/24 07/09/24 07/10/24 23:59 23:59 23:59 23:59 Intake Total 1430 / 1790 1679 900 / 1000 1400 / 1400 Output Total 0 / 0 0 / 0 0 / 0 0 / 0 Balance 1430 / 1790 1679 900 / 1000 1400 / 1400 Weight 164.064 kg 120.911 kg 120.656 kg 120.65 kg Constitutional Constitutional: no acute distress *Routine HEENT Exam Head: Present normocephalic Eye: Present EOMI and PERRL ENT: Present mucous membranes moist *Routine Neck Exam Neck: Present supple; Absent lymphadenopathy *Routine Respiratory Exam Respiratory: Present CTA bilaterally *Routine Cardiovascular Exam Cardiovascular: Present RRR *Routine Abdominal Exam Abdominal: Present distended Comments: Minimal bowel sounds. Appreciably distended. Incisions clean. Some blistering from dressing due to abdominal distention. *Routine Extremities Exam Extremities: Absent cyanosis, clubbing or edema *Routine Skin Exam Skin: Present warm; Absent rash *Routine Neurological Exam Neurological: Present alert and oriented X3 Assessment and Plan *Assessment and plan (1) Acute appendicitis: Problem Comment: Necrotic/suppurative appendicitis (see operative report for detail) Status: Acute Qualifiers: Acute appendicitis type: unspecified acute appendicitis type Qualified Code(s): K35.80 - Unspecified acute appendicitis Category: Medical Code(s): K35.80 - Unspecified acute appendicitis Plan Girish Tate is a 48-year-old male who presented with abdominal pain and admitted for acute appendicitis s/p laparoscopic appendectomy. Hospital course complicat ed by postoperative ileus. #Acute appendicitis #Postoperative ileus ? S/p laparoscopic appendectomy 07/07/2024. Patient tolerated procedure well. WBC improved to 15.2 today. ? Patient unfortunately does have a postoperative ileus. However, patient feeling better today. Less abdominal distention, soreness. Continues to have bowel movements, gas. ? Continue clear liquid diet for now. ? Continue simethicone 160 mg 3 times daily. ? Encourage ambulation, has been ambulating around the hallways. ? Electrolytes stable. ? Continue Zosyn for now. ? Anticipate transitioning to oral antibiotics as ileus improves. ? General Surgery following, appreciate recommendations as above. Continue Protonix for GI prophylaxis. ? [place] as needed for pain control. #Anxiety/depression ? Continue citalopram 40 mg. Full code DVT prophylaxis: Lovenox 40 mg
[2024-07-10 20:00] VITALS: BP 142/79; PULSE 79; RESP 16; TEMP 37.3; O2SAT 94
[2024-07-11] VITALS: BP 146/87; PULSE 73; RESP 16; TEMP 36.9; O2SAT 95
[2024-07-11] MEDS: PIPERACILLIN/TAZO 4.5 GM in 0.9 % SODIUM CHLORIDE 100 ML IV ×4 (00:42→18:47)
[2024-07-11 04:00] VITALS: BP 150/82; PULSE 72; RESP 16; TEMP 36.5; O2SAT 93; BMI 36.3
--- NOTE | 2024-07-11 04:10 | PC.NURSE ---
Addendum entered by Lacy Jauregui RN 07/11/24 06:22: Pt reports that he has had 2 loose BMs this am. He denies any solid stool. Original Note: Pt is A/O X 4. He continues to be independent with ambulation. Pt was walking in the hallway during change of shift but has not been out of the room since. He has not had any further episodes of N/V and is beginning to feel a little less bloated. He has denied pain or discomfort. BS remain sluggish but pt passing gas, no further BM this shift. He has tolerated clear liquid diet. BP has been slightly elevated but other VS WNL
[2024-07-11 07:06] LABS: Basophils # 0.1 K/mm3 (0-0.2); Basophils % 0.4 % (0.1-2.0); Eosinophils # 0.2 K/mm3 (0.0-0.4); Eosinophils % 1.4 % (0.1-12.0); Hematocrit 41.8 % (42.0-52.0); Hemoglobin 14.3 g/dL (14.1-18.0); Lymphocytes # 1.8 K/mm3 (0.7-4.5); Lymphocytes % 12.9 % (10-50); Mean Corpuscular HGB Conc 34.2 g/dL (31.8-35.4); Mean Corpuscular Volume 84.8 fl (80-94); Monocytes # 1.6 K/mm3 (0.1-1.0); Monocytes % 11.6 % (1.7-9.3); Platelet Count 376 K/mm3 (142-424); Red Blood Count 4.93 M/mm3 (4.60-6.20); Red Cell Distribution Width 12.7 % (11.5-17.5); White Blood Count 13.6 K/mm3 (4.8-10.8)
[2024-07-11 07:08] LABS: Albumin Level 3.4 g/dl (3.5-5.0); Chloride 99 mmol/L (98-107); Potassium 3.5 mmoL/L (3.5-5.1); Sodium 134 mmol/L (136-145)
[2024-07-11 07:11] LABS: Alanine Aminotransferase 27 U/L (12-78); Albumin/Globulin Ratio 1.3 (1.1-1.8); Alkaline Phosphatase 69 U/L (38-126); Anion Gap 10.5 mEq/L (5-15); Aspartate Amino Transferase 27 U/L (17-59); Bilirubin,Total 0.7 mg/dl (0.2-1.3); Blood Urea Nitrogen 15 mg/dl (9-20); Carbon Dioxide 28 mmol/L (22.0-30.0); Creatinine Clearance Estimated 192 mL/min (50-200); Estimated Glomerular Filt Rate 103 ml/min (>60); GFR (African American) 124 ML/MIN (>60); Globulin 2.7 g/dL (1.3-3.2); Total Protein,Serum 6.1 g/dl (6.3-8.2)
[2024-07-11 07:12] LABS: Calcium 8.4 mg/dl (8.4-10.2); Glucose 101 mg/dl (74-100)
[2024-07-11 07:53] VITALS: BP 144/88; PULSE 74; RESP 20; TEMP 36.8; O2SAT 93
[2024-07-11] MEDS: NEOMYCIN-POLYMYXIN-BACIT OINT 15GM TUBE TP ×2 (09:07→20:08)
[2024-07-11] MEDS: CITALOPRAM 40MG TABLET 40 MG PO (09:08)
[2024-07-11] MEDS: SIMETHICONE 80MG CHEWABLE TABLET 160 MG PO ×3 (09:08→20:08)
[2024-07-11] MEDS: ENOXAPARIN 40MG/0.4ML SYRINGE 40 MG SUBCUT (09:08)
[2024-07-11] MEDS: PANTOPRAZOLE 40MG VIAL 40 MG IV ×2 (09:09→20:28)
[2024-07-11] MEDS: SODIUM CHLORIDE 0.9% 10ML VIAL 10 ML IV ×2 (09:09→20:28)
--- NOTE | 2024-07-11 09:11 | P.PN_ITS ---
Subjective Narrative: Patient states that he feels slightly better than yesterday. Patient complains of abdominal spasms . Not passing any gas. However he did have particulate liquid stool. No additional vomiting but he has been nauseated. No appetite. Has early satiety and feels full. Exam Data for Last 24 hours Vital signs and Labs for Last 24 Hours: Temp Pulse Resp BP Pulse Ox O2 Del Method O2 Flow Rate 98.3 F 74 20 144/88 H 93 L Room Air 2 07/11/24 07:53 07/11/24 07:53 07/11/24 07:53 07/11/24 07:53 07/11/24 07:53 07/11/24 07:53 07/07/24 15:50 Laboratory Results - last 24 hr 07/11/24 06:49: WBC 13.6 H, RBC 4.93, Hgb 14.3, Hct 41.8 L, MCV 84.8, MCH 29.0, MCHC 34.2, RDW 12.7, Plt Count 376, MPV 8.0, Neut % (Auto) 73.0, Lymph % (Auto) 12.9, [place] % (Auto) 11.6 H, Eos % (Auto) 1.4, Baso % (Auto) 0.4, Neut # (Auto) 10.0 H, Lymph # (Auto) 1.8, [place] # (Auto) 1.6 H, Eos # (Auto) 0.2, Baso # (Auto) 0.1, Sodium 134 L, Potassium 3.5, Chloride 99, Carbon Dioxide 28, Anion Gap 10.5, BUN 15, Creatinine 0.80, Estimated Creat Clear 192, Estimated GFR 103, Est GFR ( Amer) 124, Glucose 101 H, Calcium 8.4, Magnesium 2.0, Total Bilirubin 0.7, AST 27, ALT 27, Alkaline Phosphatase 69, Total Protein 6.1 L, Albumin 3.4 L, Globulin 2.7, Albumin/Globulin Ratio 1.3 I & O for Last 24 hours: Intake & Output 07/08/24 07/09/24 07/10/24 07/11/24 11:59 11:59 11:59 11:59 Intake Total 1320 / 1320 1540 / 1540 540 / 540 1060 / 1060 Output Total 0 / 0 0 / 0 0 / 0 0 / 0 Balance 1320 / 1320 1540 / 1540 540 / 540 1060 / 1060 Weight 266 lb 9 oz 266 lb 266 lb 268 lb 4.8 oz Microbiology Reports for the Last 24 Hours: Microbiology 07/07/24 00:14 Blood Blood Culture - Preliminary NO GROWTH AFTER 4 DAYS 07/07/24 00:19 Blood Blood Culture - Preliminary NO GROWTH AFTER 4 DAYS *Routine Abdominal Exam Abdominal: Present tenderness and distended Comments: Abdomen distended. He has tenderness mostly right lower quadrant. Progress Note: A&P Assessment and plan (1) Acute appendicitis: Problem details: Necrotic/suppurative appendicitis (see operative report for detail) Status: Acute Assessment and plan: I will check a follow-up acute abdominal series. Limit to very limited clear liquids. He had been advanced to full liquids. Taking little orally due to abdominal distention and early satiety likely secondary to ileus. He has shown some slight improvement in his leukocytosis. I will check an acute abdominal series for interval change. Likely too early for CT scan to be of any value to assess for possible abscess or other issue.
--- NOTE | 2024-07-11 09:15 | XR_ITS ---
FINAL REPORT CLINICAL HISTORY: ABDOMINAL DISTENSION, BLOATING, S/P APPENDECTOMY COMPARISON: 07/09/2024 FINDINGS: A PA view of the chest was obtained. The cardiac and mediastinal silhouettes are within normal limits. The lung volumes are low. Bibasilar atelectasis is noted. There is no free air beneath the diaphragm. Upright and supine views of the abdomen interval worsening of small bowel dilatation with loops measuring up to 7 cm. There is relative paucity of gas in the right lower quadrant raising the concern for small bowel obstruction. There are no pathologic calcifications. No acute osseous abnormalities identified. IMPRESSION: Findings concerning for small bowel obstruction. Reviewed, Interpreted and Dictated by Saranya Douglass MD Transcribed by Shea Sr Authenticated and . [facility]
[2024-07-11 12:00] VITALS: BP 145/82; PULSE 68; RESP 20; O2SAT 93
[2024-07-11] MEDS: ACETAMINOPHEN 325MG TAB 650 MG PO ×2 (14:13→18:47)
[2024-07-11 16:00] VITALS: BP 139/80; PULSE 73; RESP 19; TEMP 36.8; O2SAT 95
--- NOTE | 2024-07-11 16:29 | PC.NURSE ---
Pt continues to c/o abdominal discomfort, tenderness and feeling full. He did not tolerate full liquid diet this AM. Pt placed back on clear liquid diet. No carbonated drinks. Pt encouraged to ambulate. He is currently up to the chair. Has had 2 BMs thus far. Call light within reach.
[2024-07-11 20:00] VITALS: BP 155/86; PULSE 70; RESP 20; TEMP 36.9; O2SAT 95
--- NOTE | 2024-07-11 20:07 | EXP.PN ---
Subjective *Date: 07/11/24 *Time: 20:07 Interval history: Patient is understandably frustrated that ileus is having minimal improvement. Distention plateaued today, epigastric and right lower quadrant mild pain. Having intermittent nausea with food. However, having flatus, bowel movements. Exam Data for Last 24 hours Vital signs and Labs for Last 24 Hours: Temp Pulse Resp BP Pulse Ox O2 Del Method O2 Flow Rate 98.3 F 73 19 139/80 95 Room Air 2 07/11/24 16:07/11/24 16:07/11/24 16:07/11/24 16:07/11/24 16:00 07/11/24 19:52 07/07/24 15:50 Laboratory Results - last 24 hr 07/11/24 06:49: WBC 13.6 H, RBC 4.93, Hgb 14.3, Hct 41.8 L, MCV 84.8, MCH 29.0, MCHC 34.2, RDW 12.7, Plt Count 376, MPV 8.0, Neut % (Auto) 73.0, Lymph % (Auto) 12.9, [place] % (Auto) 11.6 H, Eos % (Auto) 1.4, Baso % (Auto) 0.4, Neut # (Auto) 10.0 H, Lymph # (Auto) 1.8, [place] # (Auto) 1.6 H, Eos # (Auto) 0.2, Baso # (Auto) 0.1, Sodium 134 L, Potassium 3.5, Chloride 99, Carbon Dioxide 28, Anion Gap 10.5, BUN 15, Creatinine 0.80, Estimated Creat Clear 192, Estimated GFR 103, Est GFR ( Amer) 124, Glucose 101 H, Calcium 8.4, Magnesium 2.0, Total Bilirubin 0.7, AST 27, ALT 27, Alkaline Phosphatase 69, Total Protein 6.1 L, Albumin 3.4 L, Globulin 2.7, Albumin/Globulin Ratio 1.3 I & O for Last 24 hours: Intake & Output 07/08/24 07/09/24 07/10/24 07/11/24 23:59 23:59 23:59 23:59 Intake Total 1679 900 / 1000 1400 / 1400 760 / 760 Output Total 0 / 0 0 / 0 0 / 0 0 / 0 Balance 1680 / 1980 900 / 1000 1400 / 1400 760 / 760 Weight 120.911 kg 120.656 kg 120.65 kg 121.699 kg Microbiology Reports for the Last 24 Hours: Microbiology 07/07/24 00:14 Blood Blood Culture - Preliminary NO GROWTH AFTER 4 DAYS 07/07/24 00:19 Blood Blood Culture - Preliminary NO GROWTH AFTER 4 DAYS Constitutional Constitutional: no acute distress *Routine HEENT Exam Head: Present normocephalic Eye: Present EOMI and PERRL ENT: Present mucous membranes moist *Routine Neck Exam Neck: Present supple; Absent lymphadenopathy *Routine Respiratory Exam Respiratory: Present CTA bilaterally *Routine Cardiovascular Exam Cardiovascular: Present RRR *Routine Abdominal Exam Abdominal: Present tenderness and distended Comments: Abdomen distended. He has tenderness mostly right lower quadrant. No appreciable bowel sounds. *Routine Extremities Exam Extremities: Absent cyanosis, clubbing or edema *Routine Skin Exam Skin: Present warm; Absent rash *Routine Neurological Exam Neurological: Present alert and oriented X3 Assessment and Plan *Assessment and plan (1) Acute appendicitis: Problem Comment: Necrotic/suppurative appendicitis (see operative report for detail) Status: Acute Qualifiers: Acute appendicitis type: unspecified acute appendicitis type Qualified Code(s): K35.80 - Unspecified acute appendicitis Category: Medical Code(s): K35.80 - Unspecified acute appendicitis Plan Girish Tate is a 48-year-old male who presented with abdominal pain and admitted for acute appendicitis s/p laparoscopic appendectomy. Hospital course complicated by postoperative ileus. #Acute necrotic appendicitis #Postoperative ileus ? General Surgery consulted, s/p laparoscopic appendectomy 07/07/2024. Patient tolerated procedure well. WBC improved to 15.2 today. ? Patient unfortunately has a postoperative ileus, not surprising given the chronic nature of appendicitis. ? Improvement in distention initially, though plateaued today. No appreciable bowel sounds, though having bowel movements and passing gas. ? Repeat KUB today continues to suggest ileus versus SBO. If there is an SBO, likely partial given patient having flatus and having bowel movements. ? Continue clear liquid diet for now. ? Continue simethicone 160 mg 3 times daily. ? Encourage ambulation, has been ambulating around the hallways. ? Electrolytes stable. ? Continue Zosyn for now. ? Anticipate transitioning to oral antibiotics as ileus improves. ? General Surgery following, appreciate recommendations as above. Continue Protonix for GI prophylaxis. ? [place] as needed for pain control. #Anxiety/depression ? Continue citalopram 40 mg. ? Started Ativan 0.5 mg twice daily as needed. Full code DVT prophylaxis: Lovenox 40 mg
[2024-07-11] MEDS: LORazepam 0.5MG TABLET 0.5 MG PO (20:08)
[2024-07-12] VITALS: BP 140/78; PULSE 69; RESP 16; TEMP 36.8; O2SAT 94
[2024-07-12] MEDS: PIPERACILLIN/TAZO 4.5 GM in 0.9 % SODIUM CHLORIDE 100 ML IV ×4 (00:04→18:27)
[2024-07-12 03:21] VITALS: BP 151/80; PULSE 74; RESP 18; TEMP 36.8; O2SAT 93
[2024-07-12 04:00] VITALS: BMI 35.8
--- NOTE | 2024-07-12 04:42 | PC.NURSE ---
PT IS RESTING IN BED. ALERT AND ORIENTED X4. PT HAS BEEN SLEEPING OFF AND ON T/O THE SHIFT. TAKING IN VERY MINIMAL CLEAR LIQUIDS. PT STATES HE JUST FEELS FULL AND IS AFRAID TO DRINK MUCH DUE TO GETTING SICK. PT CONTINUES TO HAVE SPASM PAIN. DOES NOT WANT TO TAKE ANY PAIN MEDICATION DUE TO GETTING SICK AND BECOMING CONSTIPATED. AMBULATED AT THE BEGINNING OF THE SHIFT. PT STATED HE HAD A VERY SMALL LIQUID BM THIS SHIFT HOWEVER STATES HE IS NOT PASSING FLATUS. ABDOMEN FIRM/DISTENDED WITH HYPOACTIVE BOWEL SOUNDS. SURGICAL INCISION OPEN TO AIR. OINTMENT APPLIED TO THE BLISTERED AREA AT THE LLQ. VSS. WILL CONTINUE TO MONITOR.
[2024-07-12 06:59] LABS: Albumin Level 3.3 g/dl (3.5-5.0); Chloride 101 mmol/L (98-107); Sodium 136 mmol/L (136-145)
[2024-07-12 07:00] LABS: Potassium 3.7 mmoL/L (3.5-5.1)
[2024-07-12 07:02] LABS: Alanine Aminotransferase 27 U/L (12-78); Albumin/Globulin Ratio 1.2 (1.1-1.8); Alkaline Phosphatase 71 U/L (38-126); Anion Gap 12.7 mEq/L (5-15); Aspartate Amino Transferase 29 U/L (17-59); Bilirubin,Total 0.6 mg/dl (0.2-1.3); Blood Urea Nitrogen 15 mg/dl (9-20); Calcium 8.4 mg/dl (8.4-10.2); Carbon Dioxide 26 mmol/L (22.0-30.0); Creatinine Clearance Estimated 190 mL/min (50-200); Estimated Glomerular Filt Rate 103 ml/min (>60); GFR (African American) 124 ML/MIN (>60); Globulin 2.7 g/dL (1.3-3.2); Glucose 89 mg/dl (74-100)
[2024-07-12 07:09] LABS: Basophils # 0.1 K/mm3 (0-0.2); Basophils % 0.3 % (0.1-2.0); Eosinophils # 0.3 K/mm3 (0.0-0.4); Eosinophils % 1.8 % (0.1-12.0); Hematocrit 43.4 % (42.0-52.0); Hemoglobin 14.6 g/dL (14.1-18.0); Lymphocytes # 1.4 K/mm3 (0.7-4.5); Lymphocytes % 9.3 % (10-50); Mean Corpuscular HGB Conc 33.6 g/dL (31.8-35.4); Mean Corpuscular Hemoglobin 28.8 pg (27.0-31.2); Mean Corpuscular Volume 85.6 fl (80-94); Mean Platelet Volume 7.9 fl (7.4-10.4); Monocytes # 1.3 K/mm3 (0.1-1.0); Monocytes % 8.8 % (1.7-9.3); Neutrophils # 11.9 K/mm3 (1.8-7.8); Platelet Count 448 K/mm3 (142-424); Red Blood Count 5.07 M/mm3 (4.60-6.20); Red Cell Distribution Width 12.8 % (11.5-17.5); White Blood Count 15.1 K/mm3 (4.8-10.8)
[2024-07-12 07:19] LABS: MANUAL DIFFERENTIAL MANUAL DIFFERENTIAL (MANUAL DIFF)
[2024-07-12 07:55] LABS: Eosinophils % 1 % (0-3); Lymphocytes % 16 % (10-50); Monocytes % 14 % (2-9); Neutrophils % 66 % (42-76); Platelet Estimate Marked Increase; RBC Morphology Normal; Total Cells Counted 100
[2024-07-12 08:00] VITALS: BP 142/75; PULSE 75; RESP 19; TEMP 36.6; O2SAT 95
[2024-07-12] MEDS: SIMETHICONE 80MG CHEWABLE TABLET 160 MG PO ×3 (08:30→20:36)
[2024-07-12] MEDS: ENOXAPARIN 40MG/0.4ML SYRINGE 40 MG SUBCUT (08:30)
[2024-07-12] MEDS: NEOMYCIN-POLYMYXIN-BACIT OINT 15GM TUBE TP ×2 (08:30→20:33)
[2024-07-12] MEDS: CITALOPRAM 40MG TABLET 40 MG PO (08:30)
[2024-07-12] MEDS: SODIUM CHLORIDE 0.9% 10ML VIAL 10 ML IV ×2 (08:31→20:33)
[2024-07-12] MEDS: PANTOPRAZOLE 40MG VIAL 40 MG IV ×2 (08:31→20:33)
[2024-07-12] MEDS: LORazepam 0.5MG TABLET 0.5 MG PO ×2 (08:31→20:32)
--- NOTE | 2024-07-12 09:23 | P.PN_ITS ---
Subjective Patient reports: no new complaints Narrative: The patient still feels bloated . He has continued to have a few small bowel movements (mostly liquid). Over the past 6 hours he has noted a small amount of flatus on 2 separate occasions. He is minimally nauseous and states that he is not thrown up for a couple days . Exam Data for Last 24 hours Vital signs and Labs for Last 24 Hours: Temp Pulse Resp BP Pulse Ox O2 Del Method O2 Flow Rate 98 F 75 19 142/75 H 95 Room Air 2 07/12/24 08:00 07/12/24 08:00 07/12/24 08:00 07/12/24 08:00 07/12/24 08:00 07/12/24 08:00 07/07/24 15:50 Laboratory Results - last 24 hr 07/12/24 05:45: WBC 15.1 H, RBC 5.07, Hgb 14.6, Hct 43.4, MCV 85.6, MCH 28.8, MCHC 33.6, RDW 12.8, Plt Count 448 H, MPV 7.9, Neut % (Auto) 79.0, Lymph % (Auto) 9.3 L, [place] % (Auto) 8.8, Eos % (Auto) 1.8, Baso % (Auto) 0.3, Neut # (Auto) 11.9 H, Lymph # (Auto) 1.4, [place] # (Auto) 1.3 H, Eos # (Auto) 0.3, Baso # (Auto) 0.1, Total Counted 100, Neutrophils % (Manual) 66, Band Neutrophils % 3.0, Lymphocytes % (Manual) 16, Monocytes % (Manual) 14 H, Eosinophils % (Manual) 1, Platelet Estimate Marked increase, RBC Morphology Normal, Sodium 136, Potassium 3.7, Chloride 101, Carbon Dioxide 26, Anion Gap 12.7, BUN 15, Creatinine 0.80, Estimated Creat Clear 190, Estimated GFR 103, Est GFR ( Amer) 124, Glucose 89, Calcium 8.4, Magnesium 2.0, Total Bilirubin 0.6, AST 29, ALT 27, Alkaline Phosphatase 71, Total Protein 6.0 L, Albumin 3.3 L, Globulin 2.7, Albumin/Globulin Ratio 1.2 I & O for Last 24 hours: Intake & Output 07/09/24 07/10/24 07/11/24 02/18/25 11:59 11:59 11:59 11:59 Intake Total 1540 / 1540 540 / 540 1060 / 1060 760 / 760 Output Total 0 / 0 0 / 0 0 / 0 0 / 0 Balance 1540 / 1540 540 / 540 1060 / 1060 760 / 760 Weight 266 lb 266 lb 268 lb 4.8 oz 264 lb 8 oz Microbiology Reports for the Last 24 Hours: Microbiology 07/07/24 00:19 Blood Blood Culture - Final NO GROWTH AFTER 5 DAYS 07/07/24 00:14 Blood Blood Culture - Final NO GROWTH AFTER 5 DAYS Constitutional Constitutional: no acute distress *Routine Respiratory Exam Respiratory: Absent respiratory distress *Routine Cardiovascular Exam Cardiovascular: Absent tachycardia *Routine Abdominal Exam Comments: Somewhat distended. Appropriately tender. Progress Note: A&P Assessment and plan (1) Acute appendicitis: Problem details: Necrotic/suppurative appendicitis (see operative report for detail) Status: Acute Assessment and plan: Stable postoperative day 5 (2) Leukocytosis: Status: Acute Assessment and plan: Essentially unchanged (3) Postoperative ileus: Status: Acute Assessment and plan: Slight improvement as he now has evidence of flatus Assessment and Plan Assessment and Plan for All Diagnoses:: Continue antibiotics (consider altering to Invanz, etc.) Continue to increase ambulation May ultimately require repeat CT scan for evaluation of potential developing abscess; however, as he is currently only postoperative day 5 will hold off for now Continue with clear liquid diet for now (add Breeze)
[2024-07-12 12:30] LABS: Procalcitonin 0.239 ng/mL (0.0-2.0)
[2024-07-12] MEDS: ACETAMINOPHEN 325MG TAB 650 MG PO ×2 (12:47→18:28)
[2024-07-12] MEDS: KETOROLAC 30MG/ML VIAL 30 MG IM ×2 (15:36→20:32)
[2024-07-12 16:00] VITALS: BP 139/76; PULSE 67; RESP 19; TEMP 36.4; O2SAT 98
--- NOTE | 2024-07-12 16:37 | PC.NURSE ---
Pt states he has had one small loose stool this shift. He continues to c/o discomfort to abdomen. Describes it as spasms. He has passed gas today. He is ambulating in the hallway. Incision sites continue to have erythema. Far left site has erythema,scab and blister noted. VSS. Call light within reach.
--- NOTE | 2024-07-12 18:55 | EXP.ACUTE.PN ---
Subjective *Date: 07/12/24 *Time: 23:19 Interval history: Persistent abdominal distention. Passing small amount of flatus. No nausea. Does have some abdominal discomfort but no peritonitis. Stable on room air. No bowel movement yet. Tolerating clear liquids. Ambulating independently. Pain stable with Toradol Medical Exam Vital signs and Labs for Last 24 Hours: Vital Signs Temp Pulse Pulse Resp BP Pulse Ox O2 Del Method 07/12/24 17:00 Room Air 07/12/24 16:00 97.5 F L 67 19 139/76 98 Room Air 07/12/24 15:00 Room Air 07/12/24 13:00 Room Air 07/12/24 11:00 Room Air 07/12/24 09:00 Room Air 07/12/24 08:00 Room Air 07/12/24 08:00 98 F 75 19 142/75 H 95 Room Air 07/12/24 06:07 Room Air 07/12/24 04:41 Room Air 07/12/24 03:21 98.3 F 74 18 151/80 H 93 L Room Air 07/12/24 02:49 Room Air 07/12/24 00:36 Room Air 07/12/24 00:00 98.2 F 69 16 140/78 94 L Room Air 07/11/24 22:51 Room Air 07/11/24 20:00 Room Air 07/11/24 20:00 98.4 F 70 20 155/86 H 95 Room Air 07/11/24 19:52 Room Air Intake and Output 07/12/24 07/12/24 07/12/24 07:59 15:59 23:59 Intake Total 360 / 360 Output Total 0 / 0 0 / 0 0 / 0 Balance 0 / 360 360 / 360 0 / 360 Intake: Intake, Oral Amount 360 / 360 Output: Output, Urine Amount 0 / 0 0 / 0 0 / 0 Other: Number of Voids 0 Number of Unmeasured Voids 1 2 1 Number of Bowel Movements 1 2 Weight 119.975 kg Patient Weight 07/12/24 23:59 Weight 119.975 kg Laboratory Results - last 24 hr 07/12/24 05:45: WBC 15.1 H, RBC 5.07, Hgb 14.6, Hct 43.4, MCV 85.6, MCH 28.8, MCHC 33.6, RDW 12.8, Plt Count 448 H, MPV 7.9, Neut % (Auto) 79.0, Lymph % (Auto) 9.3 L, [place] % (Auto) 8.8, Eos % (Auto) 1.8, Baso % (Auto) 0.3, Neut # (Auto) 11.9 H, Lymph # (Auto) 1.4, [place] # (Auto) 1.3 H, Eos # (Auto) 0.3, Baso # (Auto) 0.1, Total Counted 100, Neutrophils % (Manual) 66, Band Neutrophils % 3.0, Lymphocytes % (Manual) 16, Monocytes % (Manual) 14 H, Eosinophils % (Manual) 1, Platelet Estimate Marked increase, RBC Morphology Normal, Sodium 136, Potassium 3.7, Chloride 101, Carbon Dioxide 26, Anion Gap 12.7, BUN 15, Creatinine 0.80, Estimated Creat Clear 190, Estimated GFR 103, Est GFR ( Amer) 124, Glucose 89, Calcium 8.4, Magnesium 2.0, Total Bilirubin 0.6, AST 29, ALT 27, Alkaline Phosphatase 71, Total Protein 6.0 L, Albumin 3.3 L, Globulin 2.7, Albumin/Globulin Ratio 1.2, Procalcitonin 0.239 I & O for Labs for Last 24 Hours: Intake & Output 07/09/24 07/10/24 07/11/24 07/12/24 23:59 23:59 23:59 23:59 Intake Total 900 / 1000 1400 / 1400 760 / 760 360 / 360 Output Total 0 / 0 0 / 0 0 / 0 0 / 0 Balance 900 / 1000 1400 / 1400 760 / 760 360 / 360 Weight 120.656 kg 120.65 kg 121.699 kg 119.975 kg Microbiology Reports for the Last 24 Hours: Microbiology 07/07/24 00:19 Blood Blood Culture - Final NO GROWTH AFTER 5 DAYS 07/07/24 00:14 Blood Blood Culture - Final NO GROWTH AFTER 5 DAYS Constitutional: Present mild distress, obese and cooperative Head: Present atraumatic and normocephalic ENT: Present normal exam Respiratory: Present normal respiratory effort; Absent rhonchi, wheezes or crackles Cardiac: Present Reg Rate and Rhythm GI: Present soft, distention, tenderness, guarding and hypoactive bowel sounds (high pitched, tinkling); Absent rebound Extremities: Present normal inspection and full ROM Skin: Present intact; Absent erythema Neuro: Present Grossly Intact, alert, awake, oriented x 3 and moves all extremities Assessment and Plan *Assessment and plan (1) Acute appendicitis: Problem Comment: Necrotic/suppurative appendicitis (see operative report for detail) Status: Acute Qualifiers: Acute appendicitis type: unspecified acute appendicitis type Qualified Code(s): K35.80 - Unspecified acute appendicitis Category: Medical Code(s): K35.80 - Unspecified acute appendicitis (2) Postoperative ileus: Status: Acute Category: Medical Code(s): K91.89 - Other postprocedural complications and disorders of digestive system; K56.7 - Ileus, unspecified (3) Leukocytosis: Status: Acute Qualifiers: Leukocytosis type: unspecified Qualified Code(s): D72.829 - Elevated white blood cell count, unspecified Category: Medical Code(s): D72.829 - Elevated white blood cell count, unspecified (4) Anxiety: Status: Acute Category: Medical Code(s): F41.9 - Anxiety disorder, unspecified (5) HTN (hypertension): Status: Acute Qualifiers: Hypertension type: primary hypertension Qualified Code(s): I10 - Essential (primary) hypertension Category: Medical Code(s): I10 - Essential (primary) hypertension (6) Obesity: Status: Chronic Qualifiers: Obesity type: due to excess calories Obesity classification: adult class 2 (BMI 35 - 39.9) Serious obesity comorbidity presence: without serious comorbidity Body mass index: BMI 35.0-35.9 Qualified Code(s): E66.812 - Obesity, class 2; E66.09 - Other obesity due to excess calories; Z68.35 - Body mass index [BMI] 35.0-35.9, adult Category: Medical Code(s): E66.9 - Obesity, unspecified Plan Girish Tate is a 48-year-old male who presented with abdominal pain and admitted for acute appendicitis s/p laparoscopic appendectomy. Hospital course complicated by postoperative ileus. Still no bowel movement this morning. Encouraged to ambulate. Surgery continues to assist with care. Will hold on imaging today. Continues to require inpatient management. Problems addressed as follows: #Acute necrotic appendicitis #Postoperative ileus ? General Surgery consulted, s/p laparoscopic appendectomy 07/07/2024. Patient tolerated procedure well. WBC stable but still elevated at 15.1 today. ? Patient unfortunately has a postoperative ileus, not surprising given the chronic nature of appendicitis. ? Improvement in distention initially, though plateaued today. Hypoactive bowel sounds. Small amount of flatus passed but no bowel movement yet. -Discussed case with surgery, encourage ambulation. Encourage chewing gum. Continue clear liquids until having a bowel movement -Toradol 30 mg as needed every 6 hours for pain ? Continue simethicone 160 mg 3 times daily. ? Continue Zosyn for now. ? Anticipate transitioning to oral antibiotics as ileus improves. -Repeat CBC, CMP, magnesium ordered for the morning. #Anxiety/depression ? Continue citalopram 40 mg. ? Started Ativan 0.5 mg twice daily as needed. Full code DVT prophylaxis: Lovenox 40 mg Clear liquid diet
[2024-07-12 20:00] VITALS: BP 130/75; PULSE 66; RESP 16; TEMP 37; O2SAT 96
[2024-07-13] MEDS: PIPERACILLIN/TAZO 4.5 GM in 0.9 % SODIUM CHLORIDE 100 ML IV ×4 (00:57→18:08)
--- NOTE | 2024-07-13 02:37 | PC.NURSE ---
PT IS RESTING IN BED. ALERT AND ORIENTED X4. TOLERATING SIPS OF CLEAR. MEDICATED PER MAR WITH TORADOL FOR PAIN. LUNG SOUNDS CLEAR. ABDOMEN IS LESS DISTENDED. PASSING FLATUS. HYPOACTIVE BOWEL SOUNDS. WILL CONTINUE TO MONITOR.
[2024-07-13 04:00] VITALS: BP 127/79; PULSE 72; RESP 16; TEMP 36.6; O2SAT 96; BMI 35.3
[2024-07-13 06:23] LABS: Chloride 101 mmol/L (98-107)
[2024-07-13 06:24] LABS: Albumin Level 3.7 g/dl (3.5-5.0); Potassium 3.7 mmoL/L (3.5-5.1); Sodium 137 mmol/L (136-145)
[2024-07-13 06:26] LABS: Alanine Aminotransferase 26 U/L (12-78); Albumin/Globulin Ratio 1.3 (1.1-1.8); Anion Gap 11.7 mEq/L (5-15); Aspartate Amino Transferase 27 U/L (17-59); Blood Urea Nitrogen 15 mg/dl (9-20); Carbon Dioxide 28 mmol/L (22.0-30.0); Creatinine Clearance Estimated 166 mL/min (50-200); Estimated Glomerular Filt Rate 90 ml/min (>60); GFR (African American) 109 ML/MIN (>60); Globulin 2.8 g/dL (1.3-3.2); Total Protein,Serum 6.5 g/dl (6.3-8.2)
[2024-07-13 06:27] LABS: Alkaline Phosphatase 77 U/L (38-126); Bilirubin,Total 0.6 mg/dl (0.2-1.3); Calcium 8.9 mg/dl (8.4-10.2); Glucose 96 mg/dl (74-100)
[2024-07-13 06:29] LABS: Basophils # 0.1 K/mm3 (0-0.2); Basophils % 0.6 % (0.1-2.0); Eosinophils # 0.4 K/mm3 (0.0-0.4); Eosinophils % 2.7 % (0.1-12.0); Hematocrit 44.6 % (42.0-52.0); Hemoglobin 15.1 g/dL (14.1-18.0); Lymphocytes # 1.6 K/mm3 (0.7-4.5); Mean Corpuscular HGB Conc 33.9 g/dL (31.8-35.4); Mean Corpuscular Volume 85.6 fl (80-94); Mean Platelet Volume 7.9 fl (7.4-10.4); Monocytes # 1.1 K/mm3 (0.1-1.0); Monocytes % 7.8 % (1.7-9.3); Neutrophils % 77.2 % (37.0-80.0); Platelet Count 493 K/mm3 (142-424); Red Blood Count 5.21 M/mm3 (4.60-6.20); White Blood Count 14.3 K/mm3 (4.8-10.8)
--- NOTE | 2024-07-13 06:34 | EXP.SURG.PN ---
Subjective Patient reports: no new complaints, flatus and bowel movement Narrative: Feels just a little bit better . The patient remains very cautious with regard to PO intake as he is concerned about increased bloat . He continues to to pass intermittent flatus and continues to have small bowel movements that are thin . Exam Data for Last 24 hours Vital signs and Labs for Last 24 Hours: Temp Pulse Resp BP Pulse Ox O2 Del Method O2 Flow Rate 97.8 F 72 16 127/79 96 Room Air 2 07/13/24 04:00 07/13/24 04:00 07/13/24 04:00 07/13/24 04:00 07/13/24 04:00 07/13/24 05:00 07/07/24 15:50 Laboratory Results - last 24 hr 07/12/24 05:45: WBC 15.1 H, RBC 5.07, Hgb 14.6, Hct 43.4, MCV 85.6, MCH 28.8, MCHC 33.6, RDW 12.8, Plt Count 448 H, MPV 7.9, Neut % (Auto) 79.0, Lymph % (Auto) 9.3 L, [place] % (Auto) 8.8, Eos % (Auto) 1.8, Baso % (Auto) 0.3, Neut # (Auto) 11.9 H, Lymph # (Auto) 1.4, [place] # (Auto) 1.3 H, Eos # (Auto) 0.3, Baso # (Auto) 0.1, Total Counted 100, Neutrophils % (Manual) 66, Band Neutrophils % 3.0, Lymphocytes % (Manual) 16, Monocytes % (Manual) 14 H, Eosinophils % (Manual) 1, Platelet Estimate Marked increase, RBC Morphology Normal, Sodium 136, Potassium 3.7, Chloride 101, Carbon Dioxide 26, Anion Gap 12.7, BUN 15, Creatinine 0.80, Estimated Creat Clear 190, Estimated GFR 103, Est GFR ( Amer) 124, Glucose 89, Calcium 8.4, Magnesium 2.0, Total Bilirubin 0.6, AST 29, ALT 27, Alkaline Phosphatase 71, Total Protein 6.0 L, Albumin 3.3 L, Globulin 2.7, Albumin/Globulin Ratio 1.2, Procalcitonin 0.239 07/13/24 05:55: Sodium 137, Potassium 3.7, Chloride 101, Carbon Dioxide 28, Anion Gap 11.7, BUN 15, Creatinine 0.90, Estimated Creat Clear 166, Estimated GFR 90, Est GFR ( Amer) 109, Glucose 96, Calcium 8.9, Magnesium 2.0, Total Bilirubin 0.6, AST 27, ALT 26, Alkaline Phosphatase 77, Total Protein 6.5, Albumin 3.7 D, Globulin 2.8, Albumin/Globulin Ratio 1.3 I & O for Last 24 hours: Intake & Output 07/10/24 07/11/24 07/12/24 07/13/24 11:59 11:59 11:59 11:59 Intake Total 540 / 540 1060 / 1060 760 / 760 360 / 360 Output Total 0 / 0 0 / 0 0 / 0 0 / 0 Balance 540 / 540 1060 / 1060 760 / 760 360 / 360 Weight 266 lb 268 lb 4.8 oz 264 lb 8 oz 261 lb Constitutional Constitutional: no acute distress *Routine Respiratory Exam Respiratory: Absent respiratory distress *Routine Cardiovascular Exam Cardiovascular: Absent tachycardia *Routine Abdominal Exam Abdominal: Present soft Comments: Appropriately tender. Progress Note: A&P Assessment and plan (1) Acute appendicitis: Problem details: Necrotic/suppurative appendicitis (see operative report for detail) Status: Acute Assessment and plan: Stable postoperative day 6 (2) Postoperative ileus: Status: Acute Assessment and plan: Continuing to slow slow improvement (3) Leukocytosis: Status: Acute Assessment and plan: Follow-up a.m. labs Assessment and Plan Assessment and Plan for All Diagnoses:: Continue to increase ambulation May ultimately require repeat CT scan for evaluation of potential developing abscess; however, as he is currently only postoperative day 6 will hold off for now Remain cautious with regard to diet advancement
[2024-07-13 08:00] VITALS: BP 136/72; PULSE 70; RESP 16; TEMP 36.8; O2SAT 94
[2024-07-13] MEDS: SIMETHICONE 80MG CHEWABLE TABLET 160 MG PO ×3 (08:34→21:23)
[2024-07-13] MEDS: ENOXAPARIN 40MG/0.4ML SYRINGE 40 MG SUBCUT (08:34)
[2024-07-13] MEDS: CITALOPRAM 40MG TABLET 40 MG PO (08:34)
[2024-07-13] MEDS: PANTOPRAZOLE 40MG TABLET 40 MG PO ×2 (08:41→21:22)
[2024-07-13] MEDS: KETOROLAC 30MG/ML VIAL 30 MG IM ×2 (12:29→21:22)
[2024-07-13 16:00] VITALS: BP 134/65; PULSE 64; RESP 18; TEMP 36.8; O2SAT 96
--- NOTE | 2024-07-13 17:40 | EXP.ACUTE.PN ---
Subjective *Date: 07/13/24 *Time: 17:40 Interval history: Had a few small bowel movements overnight. Passing gas. Ambulating regularly. Pain somewhat better today. Still feels bloated. No nausea or vomiting. Discussed advancing diet today. Remains afebrile. White count improved to 14. Kidney function stable Medical Exam Vital signs and Labs for Last 24 Hours: Vital Signs Temp Pulse Pulse Resp BP Pulse Ox O2 Del Method 07/13/24 14:57 Room Air 07/13/24 12:51 Room Air 07/13/24 10:09 Room Air 07/13/24 08:46 Room Air 07/13/24 08:00 98.3 F 70 16 136/72 94 L Room Air 07/13/24 08:00 Room Air 07/13/24 05:00 Room Air 07/13/24 04:00 97.8 F 72 16 127/79 96 Room Air 07/13/24 02:57 Room Air 07/13/24 00:56 Room Air 07/12/24 22:53 Room Air 07/12/24 20:00 Room Air 07/12/24 20:00 98.6 F 66 16 130/75 96 Room Air 07/12/24 19:49 Room Air 07/12/24 19:00 Room Air Intake and Output 07/13/24 07/13/24 07/13/24 07:59 15:59 23:59 Intake Total 1060 / 1060 Output Total 0 / 0 0 / 0 Balance 0 / 1060 1060 / 1060 Intake: Intake, Oral Amount 960 / 960 Intake, Total IV Amount 100 / 100 Piperacillin/Tazo 4.5 gm In 0.9 100 / 100 % Sodium Chloride 100 ml @ 200 mls/hr IV Q6H [facility] Rx#:[id number] Output: Output, Urine Amount 0 / 0 0 / 0 Other: Number of Unmeasured Voids 1 1 Number of Bowel Movements 1 Weight 118.388 kg Patient Weight 07/13/24 23:59 Weight 118.388 kg Laboratory Results - last 24 hr 07/13/24 05:55: WBC 14.3 H, RBC 5.21, Hgb 15.1, Hct 44.6, MCV 85.6, MCH 29.0, MCHC 33.9, RDW 13.0, Plt Count 493 H, MPV 7.9, Neut % (Auto) 77.2, Lymph % (Auto) 11.0, [place] % (Auto) 7.8, Eos % (Auto) 2.7, Baso % (Auto) 0.6, Neut # (Auto) 11.0 H, Lymph # (Auto) 1.6, [place] # (Auto) 1.1 H, Eos # (Auto) 0.4, Baso # (Auto) 0.1, Sodium 137, Potassium 3.7, Chloride 101, Carbon Dioxide 28, Anion Gap 11.7, BUN 15, Creatinine 0.90, Estimated Creat Clear 166, Estimated GFR 90, Est GFR ( Amer) 109, Glucose 96, Calcium 8.9, Magnesium 2.0, Total Bilirubin 0.6, AST 27, ALT 26, Alkaline Phosphatase 77, Total Protein 6.5, Albumin 3.7 D, Globulin 2.8, Albumin/Globulin Ratio 1.3 I & O for Labs for Last 24 Hours: Intake & Output 07/10/24 07/11/24 07/12/24 07/13/24 23:59 23:59 23:59 23:59 Intake Total 1400 / 1400 760 / 760 360 / 360 1060 / 1060 Output Total 0 / 0 0 / 0 0 / 0 0 / 0 Balance 1400 / 1400 760 / 760 360 / 360 1060 / 1060 Weight 120.65 kg 121.699 kg 119.975 kg 118.388 kg Constitutional: Present no acute distress, obese and cooperative Head: Present atraumatic and normocephalic ENT: Present normal exam Respiratory: Present normal respiratory effort; Absent rhonchi, wheezes or crackles Cardiac: Present Reg Rate and Rhythm GI: Present soft, distention, tenderness (Interval improvement) and hypoactive bowel sounds; Absent guarding or rebound Extremities: Present normal inspection and full ROM Skin: Present intact; Absent erythema Neuro: Present Grossly Intact, alert, awake, oriented x 3 and moves all extremities Assessment and Plan *Assessment and plan (1) Acute appendicitis: Problem Comment: Necrotic/suppurative appendicitis (see operative report for detail) Status: Acute Qualifiers: Acute appendicitis type: unspecified acute appendicitis type Qualified Code(s): K35.80 - Unspecified acute appendicitis Category: Medical Code(s): K35.80 - Unspecified acute appendicitis (2) Postoperative ileus: Status: Acute Category: Medical Code(s): K91.89 - Other postprocedural complications and disorders of digestive system; K56.7 - Ileus, unspecified (3) Leukocytosis: Status: Acute Qualifiers: Leukocytosis type: unspecified Qualified Code(s): D72.829 - Elevated white blood cell count, unspecified Category: Medical Code(s): D72.829 - Elevated white blood cell count, unspecified (4) Anxiety: Status: Acute Category: Medical Code(s): F41.9 - Anxiety disorder, unspecified (5) HTN (hypertension): Status: Acute Qualifiers: Hypertension type: primary hypertension Qualified Code(s): I10 - Essential (primary) hypertension Category: Medical Code(s): I10 - Essential (primary) hypertension (6) Obesity: Status: Chronic Qualifiers: Obesity type: due to excess calories Obesity classification: adult class 2 (BMI 35 - 39.9) Serious obesity comorbidity presence: without serious comorbidity Body mass index: BMI 35.0-35.9 Qualified Code(s): E66.812 - Obesity, class 2; E66.09 - Other obesity due to excess calories; Z68.35 - Body mass index [BMI] 35.0-35.9, adult Category: Medical Code(s): E66.9 - Obesity, unspecified Plan Girish Tate is a 48-year-old male who presented with abdominal pain and admitted for acute appendicitis s/p laparoscopic appendectomy. Hospital course complicated by postoperative ileus. Still no bowel movement this morning. Encouraged to ambulate. Surgery continues to assist with care. Will hold on imaging today. Continues to require inpatient management. Problems addressed as follows: #Acute necrotic appendicitis #Postoperative ileus ? General Surgery consulted, s/p laparoscopic appendectomy 07/07/2024. Patient tolerated procedure well. WBC stable but still elevated at 14 today. ? Patient unfortunately has a postoperative ileus, not surprising given the chronic nature of appendicitis. ? Discussed case with surgery, as patient is passing gas and having small bowel movements, will advance to full liquids today. Monitor overnight. If doing well tomorrow, discharge home with plan for close follow-up next week and repeat imaging at that time. -Toradol 30 mg as needed every 6 hours for pain ? Continue simethicone 160 mg 3 times daily. ? Continue Zosyn for now. ? Anticipate transitioning to oral antibiotics as ileus improves. -Repeat CBC, CMP, magnesium ordered for the morning. #Anxiety/depression ? Continue citalopram 40 mg. ? Started Ativan 0.5 mg twice daily as needed. Full code DVT prophylaxis: Lovenox 40 mg Clear liquid diet
--- NOTE | 2024-07-13 18:24 | PC.NURSE ---
Aox 4, up ad roes, pain meds given once this shift, 98% on RA, 20g R ac sl, full liquid diet.
[2024-07-13 20:00] VITALS: BP 139/79; PULSE 67; RESP 17; TEMP 37.2; O2SAT 94
[2024-07-13] MEDS: LORazepam 0.5MG TABLET 0.5 MG PO (21:22)
[2024-07-13] MEDS: NEOMYCIN-POLYMYXIN-BACIT OINT 15GM TUBE TP (21:25)
[2024-07-14] MEDS: PIPERACILLIN/TAZO 4.5 GM in 0.9 % SODIUM CHLORIDE 100 ML IV ×2 (00:26→06:04)
--- NOTE | 2024-07-14 03:31 | PC.NURSE ---
PT IS RESTING IN BED. ALERT AND ORIENTED X4. PT HAS SLEPT MOST OF THE NIGHT. TOLERATED A SHOWER AT THE BEGINNING OF THE SHIFT. LUNG SOUNDS CLEAR. ABDOMEN DISTENDED AND PT STATES HE STILL FEELS VERY BLOATED. HYPOACTIVE BOWEL SOUNDS. PASSING FLATUS AND HAVE WATERY BOWEL MOVEMENTS. ABDOMINAL INCISIONS OPEN TO AIR. MEDICATED PER JUL WITH TORADOL. VSS. WILL CONTINUE TO MONITOR.
[2024-07-14 04:00] VITALS: BP 138/64; PULSE 72; RESP 16; TEMP 36.7; O2SAT 99; BMI 35.2
[2024-07-14 06:38] LABS: Basophils # 0.1 K/mm3 (0-0.2); Basophils % 0.5 % (0.1-2.0); Eosinophils # 0.3 K/mm3 (0.0-0.4); Eosinophils % 2.4 % (0.1-12.0); Hematocrit 42.3 % (42.0-52.0); Hemoglobin 14.1 g/dL (14.1-18.0); Lymphocytes # 1.5 K/mm3 (0.7-4.5); Lymphocytes % 12.5 % (10-50); Mean Corpuscular HGB Conc 33.3 g/dL (31.8-35.4); Mean Corpuscular Hemoglobin 28.8 pg (27.0-31.2); Mean Corpuscular Volume 86.3 fl (80-94); Neutrophils # 9.1 K/mm3 (1.8-7.8); Neutrophils % 75.6 % (37.0-80.0); Platelet Count 497 K/mm3 (142-424); Red Cell Distribution Width 13.1 % (11.5-17.5)
[2024-07-14 06:49] LABS: Albumin Level 3.5 g/dl (3.5-5.0); Chloride 102 mmol/L (98-107); Potassium 3.6 mmoL/L (3.5-5.1); Sodium 138 mmol/L (136-145)
[2024-07-14 06:52] LABS: Alanine Aminotransferase 35 U/L (12-78); Albumin/Globulin Ratio 1.4 (1.1-1.8); Alkaline Phosphatase 75 U/L (38-126); Anion Gap 11.6 mEq/L (5-15); Aspartate Amino Transferase 40 U/L (17-59); Bilirubin,Total 0.4 mg/dl (0.2-1.3); Blood Urea Nitrogen 14 mg/dl (9-20); Calcium 8.7 mg/dl (8.4-10.2); Carbon Dioxide 28 mmol/L (22.0-30.0); Creatinine Clearance Estimated 149 mL/min (50-200); Estimated Glomerular Filt Rate 79 ml/min (>60); GFR (African American) 96 ML/MIN (>60); Globulin 2.5 g/dL (1.3-3.2); Glucose 135 mg/dl (74-100); Magnesium 2.1 mg/dl (1.6-2.3)
--- NOTE | 2024-07-14 07:42 | EXP.DC.SUM ---
General Admission date:: 07/07/24 Discharge date: 07/14/24 HPI HPI HPI: This is a 48-year-old male who has a past medical history significant for hypertension, hyperlipidemia, bicuspid aortic valve, sleep apnea, anxiety, and scoliosis who presents with a chief complaint of abdominal pain. Due to patient's symptoms, he presented to the emergency room for evaluation. While in the emergency room, CT scan of the abdomen pelvis was consistent with acute appendicitis. As a result of his findings, patient has been admitted for further management. During my evaluation of the patient, patient states he has been having intermittent abdominal pain in the right lower quadrant for the past 4 days. He reports the pain description has been sharp, stabbing, he consistent with heartburn. Patient states that ambulation makes pain worse. He is currently denying any chest pain, lightheadedness, dizziness, fever, chills, rigors, bilious emesis, nausea, shortness of breath, dyspnea, or diarrhea. Additional pertinent vitals obtained include a temperature of 101.5, heart rate of 102, white blood cell count of 18.5, neutrophils 80.6, sodium 135, and chloride of 97. Hospital Course Hospital Course Hospital Course: Girish Tate is a 48-year-old male who presented with abdominal pain and admitted for acute appendicitis s/p laparoscopic appendectomy. Hospital course complicated by postoperative ileus. Began to have bowel movements. Seeing improvement abdominal distention. Passing gas. Tolerating full liquid diet. Stable to discharge home with further management as an outpatient. Will complete course of antibiotics. Follow-up with surgery in the next week. Problems addressed as follows: #Acute necrotic appendicitis #Postoperative ileus ? General Surgery consulted, s/p laparoscopic appendectomy 07/07/2024. Patient tolerated procedure well. White blood count showed gradual improvement to 12 by day of discharge. Patient unfortunately developed postop ileus. Took several days to resolve. Given the extent of his appendicitis, not unexpected. Bowel rest maintained until passing gas. Advanced from clear liquids to full liquids with no nausea or vomiting. Having bowel movements and passing flatus with improvement abdominal distention and pain. Ambulating independently. Tolerating NSAIDs and ibuprofen for pain control. Patient avoiding opiates as he does not want to slow his bowels down. Initially on Zosyn, patient to Augmentin to complete empiric course of antibiotics (total of 10 days). Plan to follow-up with surgery in the coming week for further evaluation and management. May necessitate repeat CT of the abdomen to evaluate for abscess if symptoms not improving. #Anxiety/depression ? Continue citalopram 40 mg. ? Started Ativan 0.5 mg twice daily as needed during admission. Hypertension/hyperlipidemia: Resume home regimen with valsartan 80 mg daily and Crestor 20 mg daily Exam Data for Last 24 hours Vital signs and Labs for Last 24 Hours: Temp Pulse Resp BP Pulse Ox O2 Del Method O2 Flow Rate 98.1 F 72 16 138/64 99 Room Air 2 07/14/24 04:00 07/14/24 04:00 07/14/24 04:00 07/14/24 04:00 07/14/24 04:00 07/14/24 06:25 07/07/24 15:50 Laboratory Results - last 24 hr 07/14/24 05:45: WBC 12.0 H, RBC 4.90, Hgb 14.1, Hct 42.3, MCV 86.3, MCH 28.8, MCHC 33.3, RDW 13.1, Plt Count 497 H, MPV 8.0, Neut % (Auto) 75.6, Lymph % (Auto) 12.5, [place] % (Auto) 8.0, Eos % (Auto) 2.4, Baso % (Auto) 0.5, Neut # (Auto) 9.1 H, Lymph # (Auto) 1.5, [place] # (Auto) 1.0, Eos # (Auto) 0.3, Baso # (Auto) 0.1, Sodium 138, Potassium 3.6, Chloride 102, Carbon Dioxide 28, Anion Gap 11.6, BUN 14, Creatinine 1.00, Estimated Creat Clear 149, Estimated GFR 79, Est GFR ( Amer) 96, Glucose 135 H D, Calcium 8.7, Magnesium 2.1, Total Bilirubin 0.4, AST 40 D, ALT 35 D, Alkaline Phosphatase 75, Total Protein 6.0 L, Albumin 3.5, Globulin 2.5, Albumin/Globulin Ratio 1.4 I & O for Last 24 hours: Intake & Output 07/11/24 07/12/24 07/13/24 07/14/24 23:59 23:59 23:59 23:59 Intake Total 760 / 760 360 / 360 1510 / 1510 Output Total 0 / 0 0 / 0 0 / 0 Balance 760 / 760 360 / 360 1510 / 1510 Weight 121.699 kg 119.975 kg 118.388 kg 117.934 kg Constitutional Constitutional: no acute distress, obese and cooperative *Routine HEENT Exam Head: Present normocephalic Eye: Present EOMI and PERRL ENT: Present mucous membranes moist *Routine Neck Exam Neck: Present supple; Absent lymphadenopathy *Routine Respiratory Exam Respiratory: Present CTA bilaterally; Absent rhonchi, wheezes or crackles *Routine Cardiovascular Exam Cardiovascular: Present RRR *Routine Abdominal Exam Abdominal: Present soft, normoactive bowel sounds, tenderness (Diffuse but worse in right lower abdomen, improved from admission) and distended (Improving); Absent rebound *Routine Rectal Exam Patient deferred: visual exam *Routine Exam Patient deferred: penile exam *Routine Extremities Exam Extremities: Absent cyanosis, clubbing or edema *Routine Skin Exam Skin: Present intact and warm; Absent rash Comments: Lesion on abdomen from adhesive, healing. Dry and scab; incisions from surgery clean dry and intact *Routine Neurological Exam Neurological: Present alert, oriented X3 and moving all extremities; Absent altered mental status Results Data Completed and Pending Labs on day of discharge: Labs from last 24 hours 07/14/24 05:45 WBC 12.0 H RBC 4.90 Hgb 14.1 Hct 42.3 MCV 86.3 MCH 28.8 MCHC 33.3 RDW 13.1 Plt Count 497 H MPV 8.0 Neut % (Auto) 75.6 Lymph % (Auto) 12.5 [place] % (Auto) 8.0 Eos % (Auto) 2.4 Baso % (Auto) 0.5 Neut # (Auto) 9.1 H Lymph # (Auto) 1.5 [place] # (Auto) 1.0 Eos # (Auto) 0.3 Baso # (Auto) 0.1 Sodium 138 Potassium 3.6 Chloride 102 Carbon Dioxide 28 Anion Gap 11.6 BUN 14 Creatinine 1.00 Estimated Creat Clear 149 Estimated GFR 79 Est GFR ( Amer) 96 Glucose 135 H D Calcium 8.7 Magnesium 2.1 Total Bilirubin 0.4 AST 40 D ALT 35 D Alkaline Phosphatase 75 Total Protein 6.0 L Albumin 3.5 Globulin 2.5 Albumin/Globulin Ratio 1.4 DS: Diagnosis Discharge Diagnosis (1) Acute appendicitis: Status: Acute Code(s): K35.80 - Unspecified acute appendicitis Qualifiers: Acute appendicitis type: unspecified acute appendicitis type Qualified Code(s): K35.80 - Unspecified acute appendicitis Problem details: Necrotic/suppurative appendicitis (see operative report for detail) (2) Postoperative ileus: Status: Acute Code(s): K91.89 - Other postprocedural complications and disorders of digestive system; K56.7 - Ileus, unspecified (3) Leukocytosis: Status: Acute Code(s): D72.829 - Elevated white blood cell count, unspecified Qualifiers: Leukocytosis type: unspecified Qualified Code(s): D72.829 - Elevated white blood cell count, unspecified (4) Anxiety: Status: Acute Code(s): F41.9 - Anxiety disorder, unspecified (5) HTN (hypertension): Status: Acute Code(s): I10 - Essential (primary) hypertension Qualifiers: Hypertension type: primary hypertension Qualified Code(s): I10 - Essential (primary) hypertension (6) Obesity: Status: Chronic Code(s): E66.9 - Obesity, unspecified Qualifiers: Body mass index: BMI 35.0-35.9 Obesity classification: adult class 2 (BMI 35 - 39.9) Obesity type: due to excess calories Serious obesity comorbidity presence: without serious comorbidity Qualified Code(s): E66.812 - Obesity, class 2; E66.09 - Other obesity due to excess calories; Z68.35 - Body mass index [BMI] 35.0-35.9, adult Meds Home Medications and Allergies Home Medications ?Medication ?Instructions ?Recorded ?Confirmed ?Type escitalopram oxalate 20 mg tablet 20 mg PO DAILY Anxiety 01/07/18 07/07/24 History (Lexapro) rosuvastatin 20 mg tablet 20 mg PO DAILY 02/03/24 07/07/24 History valsartan 80 mg tablet 80 mg PO DAILY 03/10/24 07/07/24 History amoxicillin 500 mg-potassium 1 tab PO TID 4 days #10 tabs 07/14/24 Rx clavulanate 125 mg tablet (Augmentin) New Prescriptions to Start Prescriptions: amoxicillin-pot clavulanate [Augmentin] Abilio Dean Allergies Allergy/AdvReac Type Severity Reaction Status Date / Time No Known Allergies Allergy Verified 05/10/24 08:46 Discharge Plan Disposition Patient Disposition: Home, Self-Care Condition: Fair Discharge Order Discharge Orders: Discharge Order (Routine); Ordered 07/14/24 Ordered By: Abilio Dean Follow up Plan Follow up with: Carmen Conteh APRN [Primary Care Provider] - 07/15/24 8:30 am Rich España MD [Staff Physician] - 07/20/24 2:45 pm Prescriptions/Medication Reconciliation: New amoxicillin-pot clavulanate [Augmentin] 500-125 mg tablet 1 tab PO TID 4 Days Qty: 10 0RF Continued rosuvastatin 20 mg tablet 20 mg PO DAILY Patient Comments: TAKE 1 TABLET BY MOUTH EVERY DAY valsartan 80 mg tablet 80 mg PO DAILY Patient Comments: TAKE 1 TABLET BY MOUTH EVERY DAY escitalopram oxalate [Lexapro] 20 MG tablet 20 mg PO DAILY Problem Reconciliation Problems Reviewed?: Yes Patient Discharge Instructions ACTIVITY: Ambulate as tolerated and No heavy lifting DIET: advance to your usual diet Additional Instructions: Remove dressings and shower after 48 hours Patient Instructions: DI for Appendicitis -- Adult, DI for an Appendectomy, DI for Surgical Site Infection Print Language: Thai Providers Primary Care Provider: Carmen Conteh Admit Provider: Phoenix Reyes Attending Provider: Phoenix Reyes
--- NOTE | 2024-07-14 07:58 | P.PN_ITS ---
Subjective Patient reports: no new complaints, feels better, flatus and bowel movement Exam Data for Last 24 hours Vital signs and Labs for Last 24 Hours: Temp Pulse Resp BP Pulse Ox O2 Del Method O2 Flow Rate 98.1 F 72 16 138/64 99 Room Air 2 07/14/24 04:00 07/14/24 04:00 07/14/24 04:00 07/14/24 04:00 07/14/24 04:00 07/14/24 06:25 07/07/24 15:50 Laboratory Results - last 24 hr 07/14/24 05:45: WBC 12.0 H, RBC 4.90, Hgb 14.1, Hct 42.3, MCV 86.3, MCH 28.8, MCHC 33.3, RDW 13.1, Plt Count 497 H, MPV 8.0, Neut % (Auto) 75.6, Lymph % ( Auto) 12.5, [place] % (Auto) 8.0, Eos % (Auto) 2.4, Baso % (Auto) 0.5, Neut # (Auto) 9.1 H, Lymph # (Auto) 1.5, [place] # (Auto) 1.0, Eos # (Auto) 0.3, Baso # (Auto) 0.1, Sodium 138, Potassium 3.6, Chloride 102, Carbon Dioxide 28, Anion Gap 11.6, BUN 14, Creatinine 1.00, Estimated Creat Clear 149, Estimated GFR 79, Est GFR ( Amer) 96, Glucose 135 H D, Calcium 8.7, Magnesium 2.1, Total Bilirubin 0.4, AST 40 D, ALT 35 D, Alkaline Phosphatase 75, Total Protein 6.0 L, Albumin 3.5, Globulin 2.5, Albumin/Globulin Ratio 1.4 I & O for Last 24 hours: Intake & Output 07/11/24 07/12/24 07/13/24 07/14/24 11:59 11:59 11:59 11:59 Intake Total 1060 / 1060 760 / 760 960 / 1060 910 / 910 Output Total 0 / 0 0 / 0 0 / 0 0 / 0 Balance 1060 / 1060 760 / 760 960 / 1060 910 / 910 Weight 268 lb 4.8 oz 264 lb 8 oz 261 lb 260 lb Constitutional Constitutional: no acute distress *Routine Respiratory Exam Respiratory: Absent respiratory distress *Routine Cardiovascular Exam Cardiovascular: Absent tachycardia *Routine Abdominal Exam Abdominal: Present soft Comments: Appropriately tender (improving) Progress Note: A&P Assessment and plan (1) Acute appendicitis: Problem details: Necrotic/suppurative appendicitis (see operative report for detail) Status: Acute Assessment and plan: Stable postoperative day 7 (2) Postoperative ileus: Status: Acute Assessment and plan: Continuing to slowly improve (3) Leukocytosis: Status: Acute Assessment and plan: White blood cell count down to 12.0 this a.m. Assessment and Plan Assessment and Plan for All Diagnoses:: Continue ambulation Likely discharge home soon with close outpatient follow-up
[2024-07-14 08:00] VITALS: BP 135/72; PULSE 64; RESP 18; TEMP 36.6; O2SAT 95
[2024-07-14] MEDS: PANTOPRAZOLE 40MG TABLET 40 MG PO (09:11)
[2024-07-14] MEDS: SIMETHICONE 80MG CHEWABLE TABLET 160 MG PO (09:11)
[2024-07-14] MEDS: NEOMYCIN-POLYMYXIN-BACIT OINT 15GM TUBE TP (09:12)
[2024-07-14] MEDS: CITALOPRAM 40MG TABLET 40 MG PO (09:12)
[2024-07-14] MEDS: ENOXAPARIN 40MG/0.4ML SYRINGE 40 MG SUBCUT (09:12)
--- NOTE | 2024-07-18 11:19 | SW/DCPLANNER ---
Phoned patient x2. Left message with my name and call back number. Patient has no returned phone calls. Rosalie Carcamo
== END 2024-07-14 11:35 | disposition home or self-care (01) | DRG 398 ==
LOC: ER 07-07 01:39 → 2ND 07-07 07:30
PROVIDERS: Internal Medicine Adolescent Medicine; Nurse Practitioner Family; Surgery; Admitting Provider Student in an Organized Health Care Education/Training Program; Emergency Provider Emergency Medicine; PCP Nurse Practitioner Family; Visit Provider Student in an Organized Health Care Education/Training Program
PROC: 0DTJ4ZZ Resection of Appendix, Percutaneous Endoscopic Approach (ICD-10-PCS; CPT 44970; principal; 2024-07-07 11:00)
DX: K35.31 Acute appendicitis with localized peritonitis and gangrene, without perforation (principal); K56.7 Ileus, unspecified; K91.89 Other postprocedural complications and disorders of digestive system; Z68.42 Body mass index [BMI] 45.0-49.9, adult; Y83.8 Other surgical procedures as the cause of abnormal reaction of the patient, or of later complication, without mention of misadventure at the time of the procedure; F41.9 Anxiety disorder, unspecified; F32.A Depression, unspecified; Q23.81 Bicuspid aortic valve; I10 Essential (primary) hypertension; E78.5 Hyperlipidemia, unspecified; E66.01 Morbid (severe) obesity due to excess calories; F17.210 Nicotine dependence, cigarettes, uncomplicated; Z80.8 Family history of malignant neoplasm of other organs or systems; Z82.3 Family history of stroke; Z82.49 Family history of ischemic heart disease and other diseases of the circulatory system; Z79.899 Other long term (current) drug therapy
CPT/HCPCS: 36415; 74021; 74177; 80048; 80053; 81001; 82962; 83605; 83690; 83735; 84145; 85007; 85025; 85610; 87040; 87636; 93005; 99291; J3490; J0131; J0360; J0696; J1100; J1650; J1885; J2270; J2405; J2543; J3010; J7120; Q9967

== ENCOUNTER 2024-11-15 06:24 | Day surgery (SDC) | payer BC, SELFPAY ==
[2024-11-14 12:25] VITALS: BMI 33.0
[2024-11-15] MEDS: LACTATED RINGERS 1000ML 1,000 ML 50 ML IV (06:42)
[2024-11-15 06:45] VITALS: BP 116/63; PULSE 61; RESP 18; TEMP 36.1; O2SAT 97
--- NOTE | 2024-11-15 06:50 | EXP.GEN.HP ---
HPI HPI HPI: This is a 49-year-old gentleman who returns for colonoscopy. In April 2024 he underwent colonoscopy that was complicated by moderate bowel preparation, significant tortuosity, and profound spasticity/lack of relaxation. Hemorrhoidal cushions noted. A cluster of polyps between 30 and 35 cm were noted. Multiple polyps were removed with a mixture of hyperplastic and adenomatous polyps noted. A large complex pedunculated polyp at 15 cm was excised and found to be adenomatous. No high-grade dysplasia noted. [facility] Disclaimer: The information contained in this section may have been updated after the patient was seen, as this information can be updated by other users. Medical History Sleep apnea Anxiety Scoliosis HLD (hyperlipidemia) HTN (hypertension) Surgical History History of appendectomy History of colonoscopy History of surgery on arm H/O excision of dermoid cyst Family History Grandfather Heart attack Grandmother Stroke Father Hypertension Other Family history of colon cancer Social History Smoking Status: Former smoker alcohol intake: current alcohol intake frequency: a few times a week substance use type: denies use current occupational status: employed Travel in the last 8 weeks?: Inside the [place] caffeine: Yes Have you lived/traveled outside [place] in past 30 days?: No Contact w/someone who lives/traveled outside [place] past 30 days?: No Exposure to someone with infectious disease in past 14 days?: No Do you have a fever (greater than 100.4 F or 38 C)?: No Have you tested positive for COVID-19?: No Exposed to someone with COVID-19 in past 14 days?: No Do you have a sore throat?: No Do you have a cough?: No Do you have any weakness?: No Do you have any diarrhea?: No Are you experiencing any unusual bleeding?: No Do you have any muscle aches/pain?: No Do you have any abdominal pain?: No Are you experiencing loss of taste or smell?: No Other Medical History Have you received the Flu Vaccine for this season: No Have you received the Pneumonia Vaccine: No Review of Systems Review of Systems Review of systems:: pertinent systems reviewed and negative unless documented below Meds Home Medications and Allergies Home Medications ?Medication ?Instructions ?Recorded ?Confirmed ?Type escitalopram oxalate 20 mg tablet 20 mg PO DAILY Anxiety 01/07/18 11/15/24 History (Lexapro) rosuvastatin 20 mg tablet 20 mg PO DAILY 02/03/24 11/15/24 History valsartan 80 mg tablet 80 mg PO DAILY 03/10/24 11/15/24 History New Prescriptions to Start Prescriptions: Allergies Allergy/AdvReac Type Severity Reaction Status Date / Time No Known Allergies Allergy Verified 09/29/24 10:04 Exam Data for Last 24 hours I & O for Last 24 hours: Intake & Output 11/12/24 11/13/24 11/14/24 11/15/24 11:59 11:59 11:59 11:59 Weight 250 lb Constitutional Constitutional: no acute distress *Routine HEENT Exam Head: Present normocephalic Eye: Present EOMI ENT: Present mucous membranes moist *Routine Neck Exam Neck: Present full ROM *Routine Respiratory Exam Respiratory: Absent respiratory distress *Routine Cardiovascular Exam Cardiovascular: Absent tachycardia *Routine Abdominal Exam Abdominal: Present soft *Routine Rectal Exam Rectal:: deferred *Routine Genitalia Exam Genitalia:: deferred *Routine Extremities Exam Extremities: Present full ROM *Routine Skin Exam Skin: Absent erythema *Routine Neurological Exam Neurological: Present alert Assessment and Plan *Assessment and plan (1) History of colon polyps: Status: Acute Category: Medical Code(s): Z86.0100 - Personal history of colon polyps, unspecified Plan: Colonoscopy today I have discussed the risks and benefits including, but not limited to: Bleeding Infection Damage to surrounding tissue Inherent risks of sedation The patient agrees to proceed.
--- NOTE | 2024-11-15 06:54 | P.PCN_ITS ---
Procedure: Date: 11/15/24 Patient Date of :: 1975 Procedure Performed:: Colonoscopy with polypectomy Indications:: History of colon polyps Note: In April 2024 he underwent colonoscopy that was complicated by moderate bowel preparation, significant tortuosity, and profound spasticity/lack of relaxation. Hemorrhoidal cushions noted. A cluster of polyps between 30 and 35 cm were noted. Multiple polyps were removed with a mixture of hyperplastic and adenomatous polyps noted. A large complex pedunculated polyp at 15 cm was excised and found to be adenomatous. No high-grade dysplasia noted. Performing Provider:: Rich España MD Referring Provider:: . Sedation:: Monitored anesthesia care Procedure:: After informed consent was obtained the patient was taken to the endoscopy suite. Sedation ensued after the patient was transferred to the left lateral decubitus position. Pulse, blood pressure, and oxygen saturation were monitored throughout the procedure. Digital rectal exam revealed no significant abnormality. The colonoscope was placed in position. The entire colon was evaluated. The colonoscope was carefully removed and the patient was transferred to recovery in stable condition. Please see findings and specimens below for detail. Findings:: Bowel preparation fair moderate Unchanged hemorrhoidal cushions Fairly significant spasticity/lack of relaxation Significant tortuosity Polyps (see specimens) Specimens:: Sessile cecal polyp (cold biopsy forceps Polyp at 45 cm (cold biopsy forceps) Pedunculated polyp at 25 cm (hot snare) Recommendations:: Timing of repeat colonoscopy is pending pathology will likely be between 1-2 years secondary to history of multiple complex polyps, polyps noted on short- term repeat evaluation, spasticity/lack of relaxation, and tortuosity. If no significant abnormalities are noted on repeat colonoscopy timing of subsequent colonoscopies will likely be extended. Complications:: No immediate Estimated blood obtained (mL): 1 Colonoscopy Component Colonoscopy Component Was a colonoscopy performed during today's procedure?: Yes Recommended follow up colonoscopy of at least 10 years?: No If no, follow up colonoscopy recommended in ___ years?: (See above) Reason for not recommending >/= 10 yr follow-up interval?: (See above)
--- NOTE | 2024-11-15 07:03 | EXP.ANES.CKL ---
[facility] Disclaimer: The information contained in this section may have been updated after the patient was seen, as this information can be updated by other users. Medical History Sleep apnea Anxiety Scoliosis HLD (hyperlipidemia) HTN (hypertension) Surgical History History of appendectomy History of colonoscopy History of surgery on arm H/O excision of dermoid cyst Family History Grandfather Heart attack Grandmother Stroke Father Hypertension Other Family history of colon cancer Social History Smoking Status: Former smoker alcohol intake: current alcohol intake frequency: a few times a week substance use type: denies use current occupational status: employed Travel in the last 8 weeks?: Inside the [place] caffeine: Yes Have you lived/traveled outside [place] in past 30 days?: No Contact w/someone who lives/traveled outside [place] past 30 days?: No Exposure to someone with infectious disease in past 14 days?: No Do you have a fever (greater than 100.4 F or 38 C)?: No Have you tested positive for COVID-19?: No Exposed to someone with COVID-19 in past 14 days?: No Do you have a sore throat?: No Do you have a cough?: No Do you have any weakness?: No Do you have any diarrhea?: No Are you experiencing any unusual bleeding?: No Do you have any muscle aches/pain?: No Do you have any abdominal pain?: No Are you experiencing loss of taste or smell?: No [facility] Anesthesia Checklist Patient Identification Patient Identification: Arm Band and Verbal (Name & ) Structural Data Admitted From: Home Planned Operative Procedure/s: colonoscopy Verified Documents: Surgical Consent NPO Status Verified Time NPO: 00:00 Chart Verification Results Verified: ECG Additional verifications Anesthesia Reactions: No Hx Blood Transfusions: No Airway Assessment Mallampati Score:: Class II C-Spine Mobility Assessed: Yes TMJ Mobility Assessed: Yes Dentition: Good Dentition Neurological Assessment Level of Consciousness: Awake, Alert and Appropriate Anesthesia Plan Anesthesia Risk discussed: Yes Anesthesia Plan: Verified ASA Class: II Anesthesia Type: MAC
[2024-11-15 07:53] VITALS: BP 109/56; PULSE 66; RESP 17; TEMP 36.2; O2SAT 95
[2024-11-15 08:08] VITALS: BP 115/54; PULSE 66; RESP 16; O2SAT 99
[2024-11-15 08:23] VITALS: BP 112/67; PULSE 65; RESP 16; O2SAT 98
== END 2024-11-15 08:25 | disposition home or self-care (01) ==
PROVIDERS: PCP Nurse Practitioner Family; Visit Provider Surgery
PROC: 0DJD8ZZ Inspection of Lower Intestinal Tract, Via Natural or Artificial Opening Endoscopic (ICD-10-PCS; CPT 45380; principal; 2024-11-15 07:30)
DX: D12.0 Benign neoplasm of cecum (principal); D12.6 Benign neoplasm of colon, unspecified; Z86.0102 Personal history of hyperplastic colon polyps; Z86.0101 Personal history of adenomatous and serrated colon polyps; E78.5 Hyperlipidemia, unspecified; I10 Essential (primary) hypertension; Z87.891 Personal history of nicotine dependence; Z79.899 Other long term (current) drug therapy
CPT/HCPCS: 45380; 45385; J2003; J2704; J7120

== ENCOUNTER 2025-02-27 15:34 | Outpatient (CLI) | payer BC, SELFPAY ==
--- OUTSIDE RECORDS SUMMARY | 2025-02-27 04:58 | XMS_ITS | Continuity of Care Document ---
Author Organization [facility] Address [address] [place] [address] Phone Care Team Providers Care Customer Engagement Manager Name Role Phone Wero MSN, CONTINUUM OF CARE MANAGER, Carmen Unavailable Unavai lable Allergies, Adverse Reactions, Alerts Substance Reaction Status Criticality lisinopril Cough Active No Information Medications Medication Instructions Dosage Effective Dates (start - stop) Status Comments ROSUVASTATIN 20MG TABLETS TAKE 1 TABLET BY MOUTH EVERY DAY - Active VALSARTAN 80MG TABLETS TAKE 1 TABLET BY MOUTH EVERY DAY - Active Lexapro 20 mg tablet take 1 tablet by or al route every day 20 MG - Active Advance Directives Directive Yes / No Effective Date File Name No Information Encounters Encounter Description Practice Location Reason(s) For Visit Diagnoses Date Provider [facility], [address] [place] [address], [facility], tel:[phone] [facility] [place] No Information 5 Wero Morales. [address], [place], [id number] , [place]. tel:[phone] [facility], [address] [place] [address], [id number], tel:[phone] [place] Testosterone Injection (chief complaint)B12 injection (chief complaint) Testicular hypogonadism NOSVitamin B12 deficiency anemia, unspecified 5 Conteh Carmen. [address], [place], [id number] , [place]. tel:[phone] [facility], [address] [place] [address], [id number], [place] tel:[phone] [facility] [place] No Information 5 Conteh Carmen. [address], [place], [id number] , [place]. tel: [phone] [facility], [address] [place] [address], [facility], [place] tel:[phone] [facility] [place] No Information 5 Conteh Carmen. [address], [place], [id number] , [place]. tel: [phone] [facility], [address] [place] [address], [facility], tel:[phone] [facility] [place] B12 injection (chief complaint)Sallie tosterone Injection (chief complaint) Vitamin B12 deficiency anemia, unspecifiedTesticular hypogonadism NOS 5 Conteh Carmen. [address], [place], [id number] , [place]. tel: [phone] [facility], [address] [place] [address], [facility], [place] tel:[phone] [facility] [place] B12 INJECTION (chief complaint) Vitamin B12 deficiency anemia, unspecifiedTesticular hypogonadism NOS 5 Conteh Carmen. [address], [place], [id number] , [place]. tel: [phone] [facility], [address] [place] [address], [id number], [place] tel:[phone] [facility] [place] B12 injection (chief complaint) Vitamin B12 deficiency anemia, unspecified 5 Conteh Carmen. [address], [place], [id number] , [place]. tel: [phone] [facility], [address] [place] [address], [facility], tel:[phone] [place] follow up labs (chief complaint) Obesity, unspecifiedHypertensio nHyperlipidemiaVitamin B12 deficiency anemia, unspecifiedTesticular hypogonadism NOSBody mass index [BMI] 35.0-35.9, adultOther correction (current) drug therapy 5 Conteh Carmen. [address], [place], [id number] , [place]. tel:[phone] [facility], [address] [place] [address], [facility], tel:[phone] [facility] [place] BP (chief complaint)Dep ression screening (chief complaint)Pra pare (chief complaint)Fas ting Labs (chief complaint) Encounter for screening for depressionBody mass index [BMI] 34.0-34.9, adultAnxietyHypertensi onNicotine dependence, cigarettes, uncomplicatedHeart murmurObesity 5 Conteh Carmen. [address], [place], [id number] , [place]. tel:[phone] [facility], [address] [place] [address], [facility], tel:[phone] [facility] [place] tick bite (chief complaint) Body mass index [BMI] 34.0-34.9, adultAnxietyHypertensi onNicotine dependence, cigarettes, uncomplicatedBit/stung by nonvenom insect & oth nonvenom arthropods, initDisorder of the skin and subcutaneous tissue, unspecified 5 Conteh Carmen. [address], [place], [id number] , [place]. tel:[phone] [facility], [address] [place] [address], [facility], tel:[phone] [facility] [place] No Information 5 Conteh Carmen. [address], [place], [id number] , [place]. tel: [phone] [facility], [address] [place] [address], [facility], tel:[phone] [facility] [place] f/u BP (chief complaint) Abnormal EKGBody mass index [BMI] 34.0-34.9, adultHyperlipidemiaHyp ertensionNicotine dependence, cigarettes, uncomplicated 4 Conteh Carmen. [address], [place], [id number] , [place]. tel: [phone] [facility], [address] [place] [address], [facility], [phone] [facility] [place] f/u labs and bp (chief complaint) Body mass index [BMI] 34.0-34.9, adultHypertensionNicot ine dependence, cigarettes, uncomplicatedHyperlipi demia 4 Conteh Carmen. [address], [place], [id number] , [place]. tel: [phone] [facility], [address] [place] [address], [facility], tel:[phone] [facility] [place] depression screening (chief complaint)PRA PARE (chief complaint)New Patient. (chief complaint)Lip eden on back. (chief complaint) Encounter for screening for depressionBenign lipomatous neoplasm of other sitesEncounter for screening for cancer of colonHypertensionBody mass index [BMI] 34.0-34.9, adultAnxietyDepression Nicotine dependence, cigarettes, uncomplicated 4 Conteh Carmen. [address], [place], [id number] , [place]. tel: [phone] Family History Family Member Type Diagnosis Age At Onset Mother Problem Cancer, colon (Cause Of Deat h) Daughter Problem Anxiety Mother Problem Cancer, bladder Mother Problem Cancer, brain Paternal uncle Problem (finding) Nephew Problem Cancer, colon (Cause Of Deat h) Father Problem Alive and well Maternal grandfather Problem Cardiovascular disea se Nephew Problem Cancer, brain Maternal grandmother Problem (finding) Nephew Problem Cancer, bladder Paternal grandfather Problem Cardiovascular disea se Payers Payer name Insurance type Covered green party ID Lonnie ariza(s) Maciej BCBS [facility] [id number] Social History Type Description Quantity Date Captured Comments Sex Male Smoking Status No Information Sexual Orientation Straight or heterosexual Dec Gender Identity Male Chief Complaint And Reason For Visit No Information Plan Of Treatment Date Type Action Status Goal Lipid panel. Due on due Goal HIV screen due Goal Obtain Height, Weight, and B VT. Due on due Goal Obtain blood Pressure. Due o n due Goal Hemoglobin (Preemie/HR 9 mon ths). Due on due Goal Unhealthy drug use screening due Goal Tobacco screening. Due on due Goal Drug Abuse Scree julio cesar Test (DAST-10). Due on due Goal Tobacco Use Cessation Counse ling. Due on due Goal Urinalysis due Goal CBC. Due on due Goal Follow up Plan f or abnormal BMI (Less than 18.5, greater than 25). Due on due Goal Diabetes screening. Due on due Goal Hepatitis C Screening due Goal ECG due Goal Vitamin B12. Due on due Goal CMP. Due on due Goal Depression screening. Due on due Goal Tobacco Use Screening. Due o n due Goal Generalized Anxi ety Disorder - 7 (RD-7). Due on due Goal Hematocrit/Hemoglobin. Due o n due Goal Vitamin D. Due on due Goal ECG due Goal Lipid panel. Due on due Goal Vitamin B12. Due on due Goal Tobacco Use Screening. Due o n due Goal Hepatitis C Screening due Goal Vitamin D. Due on due Goal Obtain blood Pressure. Due o n due Goal Hemoglobin (Preemie/HR 9 mon ths). Due on due Goal Follow up Plan f or abnormal BMI (Less than 18.5, greater than 25). Due on due Goal Depression screening. Due on due Goal Diabetes screening. Due on due Goal Tobacco screening. Due on due Goal Hematocrit/Hemoglobin. Due o n due Goal CBC. Due on due Goal Tobacco Use Cessation Counse ling. Due on due Goal CMP. Due on due Goal Drug Abuse Scree julio cesar Test (DAST-10). Due on due Goal Generalized Anxi ety Disorder - 7 (RD-7). Due on due Goal Unhealthy drug use screening due Goal Obtain Height, Weight, and B VT. Due on due Goal HIV screen due Goal Urinalysis due Goal Lipid panel. Due on due Goal Vitamin B12. Due on due Goal Hepatitis C Screening due Goal Diabetes screening. Due on due Goal Hemoglobin (Preemie/HR 9 mon ths). Due on due Goal Follow up Plan f or abnormal BMI (Less than 18.5, greater than 25). Due on due Goal HIV screen due Goal Tobacco screening. Due on due Goal Generalized Anxi ety Disorder - 7 (RD-7). Due on due Goal Urinalysis due Goal Drug Abuse Scree julio cesar Test (DAST-10). Due on due Goal Hematocrit/Hemoglobin. Due o n due Goal Tobacco Use Screening. Due o n due Goal Tobacco Use Cessation Counse ling. Due on due Goal Obtain Height, Weight, and B VT. Due on due Goal Obtain blood Pressure. Due o n due Goal Unhealthy drug use screening due Goal Vitamin D. Due on due Goal CBC. Due on due Goal ECG due Goal CMP. Due on due Goal Depression screening. Due on due Goal Lipid panel. Due on due Goal Vitamin B12. Due on due Goal Drug Abuse Scree julio cesar Test (DAST-10). Due on due Goal Depression screening. Due on due Goal Hemoglobin (Preemie/HR 9 mon ths). Due on due Goal Hepatitis C Screening due Goal Generalized Anxi ety Disorder - 7 (RD-7). Due on due Goal HIV screen due Goal Vitamin D. Due on due Goal CBC. Due on due Goal Unhealthy drug use screening due Goal Tobacco Use Screening. Due o n due Goal Tobacco Use Cessation Counse ling. Due on due Goal Obtain Height, Weight, and B VT. Due on due Goal Urinalysis due Goal ECG due Goal Diabetes screening. Due on due Goal CMP. Due on due Goal Follow up Plan f or abnormal BMI (Less than 18.5, greater than 25). Due on due Goal Obtain blood Pressure. Due o n due Goal Tobacco screening. Due on due Goal Hematocrit/Hemoglobin. Due o n due Goal Lipid panel. Due on due Goal Vitamin B12. Due on due Goal Hemoglobin (Preemie/HR 9 mon ths). Due on due Goal Obtain blood Pressure. Due o n due Goal Lipid 9-11 y due Goal Obtain Height, Weight, and B VT. Due on due Goal Lipid 17-20 y due Goal Tobacco screening. Due on due Goal CMP. Due on due Goal Follow up Plan f or abnormal BMI (Less than 18.5, greater than 25). Due on due Goal Hepatitis C Screening due Goal Hematocrit/Hemoglobin. Due o n due Goal Depression screening. Due on due Goal Diabetes screening. Due on due Goal ECG due Goal Vitamin D. Due on due Goal Unhealthy drug use screening due Goal Tobacco Use Cessation Counse ling. Due on due Goal Drug Abuse Scree julio cesar Test (DAST-10). Due on due Goal Generalized Anxi ety Disorder - 7 (RD-7). Due on due Goal Urinalysis due Goal HIV screen due Goal CBC. Due on due Goal Tobacco Use Screening. Due o n due Goal Hemoglobin (Preemie/HR 9 mon ths). Due on due Goal Hematocrit/Hemoglobin. Due o n due Goal Lifestyle education regardin g diet completed Goal Lipid panel. Due on 026 due Goal Drug Abuse Scree julio cesar Test (DAST-10). Due on due Goal Generalized Anxi ety Disorder - 7 (RD-7). Due on due Goal Tobacco Use Screening. Due o n due Goal Vitamin B12. Due on 026 due Goal Vitamin D. Due on due Goal Tobacco screening. Due on due Goal Diabetes screening. Due on due Goal Urinalysis due Goal ECG due Goal CMP. Due on due Goal Obtain blood Pressure. Due o n due Goal Unhealthy drug use screening due Goal Obtain Height, Weight, and B VT. Due on due Goal Follow up Plan f or abnormal BMI (Less than 18.5, greater than 25). Due on due Goal CBC. Due on due Goal Depression screening. Due on due Goal Hepatitis C Screening due Goal Tobacco Use Cessation Counse roderick. Due on due Goal HIV screen due Goal Lifestyle education regardin g diet completed Goal Tobacco cessation counseling completed Goal Lipid panel. Due on 025 due Goal Urinalysis due Goal Tobacco screening. Due on due Goal Hepatitis C Screening. Due o n due Goal Obtain Height, Weight, and B VT. Due on due Goal Depression screening. Due on due Goal ECG due Goal Tobacco Use Cessation Counse ling. Due on due Goal Diabetes screening. Due on 5 due Goal CBC. Due on due Goal Tobacco Use Screening. Due o n due Goal Drug Abuse Scree julio cesar Test (DAST-10). Due on due Goal Generalized Anxi ety Disorder - 7 (RD-7). Due on due Goal Unhealthy drug use screening due Goal HIV screen. Due on 25 due Goal Vitamin B12. Due on 025 due Goal CMP. Due on due Goal Obtain blood Pressure. Due o n due Goal Follow up Plan f or abnormal BMI (Less than 18.5, greater than 25). Due on due Goal Vitamin D. Due on due Goal Lifestyle education regardin g diet completed Goal Obtain Height, Weight, and B VT. Due on due Goal ECG due Goal FOBT. Due on due Goal Diabetes screening. Due on O due Goal Urinalysis. Due on 24 due Goal Vitamin D. Due on due Goal Tobacco Use Cessation Counse ling. Due on due Goal Generalized Anxi ety Disorder - 7 (RD-7). Due on due Goal Follow up Plan f or abnormal BMI (Less than 18.5, greater than 25). Due on due Goal CMP. Due on due Goal Colonoscopy. Due on 024 due Goal Unhealthy drug use screening due Goal Depression screening. Due on due Goal Vitamin B12. Due on due Goal HIV screen. Due on due Goal Obtain blood Pressure. Due o n due Goal Drug Abuse Scree julio cesar Test (DAST-10). Due on due Goal Lipid panel. Due on due Goal Hepatitis C Screening. Due o n due Goal CBC. Due on due Goal Tobacco Use Screening. Due o n due Goal Lifestyle education regardin g diet completed Goal Tobacco Use Cessation Counse ling. Due on due Goal HIV screen. Due on due Goal Influenza vaccine. Due on due Goal Vitamin B12. Due on due Goal FOBT. Due on due Goal Diabetes screening. Due on A due Goal Lipid panel. Due on due Goal Unhealthy drug use screening . Due on due Goal Vitamin D. Due on due Goal ECG. Due on due Goal Obtain Height, Weight, and B VT. Due on due Goal Tobacco Use Screening. Due o n due Goal Depression screening. Due on due Goal CBC. Due on due Goal Colonoscopy. Due on 024 due Goal CMP. Due on due Goal Follow up Plan f or abnormal BMI (Less than 18.5, greater than 25). Due on due Goal Urinalysis. Due on due Goal Obtain blood Pressure. Due o n due Goal Hepatitis C Screening. Due o n due Goal Generalized Anxi ety Disorder - 7 (RD-7). Due on due Goal Drug Abuse Scree julio cesar Test (DAST-10). Due on due Goal Lifestyle education regardin g diet completed Goal Tobacco cessation counseling completed Goal ECG. Due on due Goal Obtain blood Pressure. Due o n due Goal Urinalysis. Due on due Goal Tobacco Use Screening. Due o n due Goal CMP. Due on due Goal Lipid panel. Due on 029 due Goal FOBT. Due on due Goal HIV screen. Due on due Goal Drug Abuse Scree julio cesar Test (DAST-10). Due on due Goal Hepatitis C Screening. Due o n due Goal Unhealthy drug use screening . Due on due Goal Generalized Anxi ety Disorder - 7 (RD-7). Due on due Goal CBC. Due on due Goal Vitamin D. Due on due Goal Tobacco Use Cessation Dione roderick. Due on due Goal Influenza vaccine. Due on due Goal Follow up Plan f or abnormal BMI (Less than 18.5, greater than 25). Due on due Goal Vitamin B12. Due on 025 due Goal Diabetes screening. Due on A due Goal Obtain Height, Weight, and B VT. Due on due Goal Colonoscopy. Due on 024 due Goal Depression screening. Due on due Goal Tobacco cessation counseling completed Goal Lifestyle education regardin g diet completed Goal Tobacco cessation counseling completed Referral Referred To: [facility] Ordered: Referrals: Cardiology. [facility]. Location: [facility]. Evaluate and treat Appointment date/timeframe: 03/10/2024 ordered Referral Referred To: [facility] Ordered: Referrals: [facility]. Location: [place]. Evaluate and treat Appointment date/timeframe: 02/29/2024 ordered Referral Referred To: [facility] Ordered: Referrals: Gastroenterology. [facility]. Diagnostic testing Appointment date/timeframe: 05/10/2024 ordered History Of Present Illness Encounter Date Complaint History Of Prese nt Illness Testosterone Injection Pt is her e today with his Testosterone Cypionate vial that he receives from his pharmacy and brings into our clinic to be administered. Successfully administered Testosterone Cypionate, 200 mg/mL, lot# [id number], exp: 06/2027, into right dorsogluteal muscle. Pt tolerated well, band aide applied. No reaction noted.Pt states that he doesn't feel any results from his testosterone injection. Provider is aware. Testosterone injections to be increased to every 2 weeks started in 2 weeks. Pt is scheduled. B12 injection Pt is here today to receive a B12 injection. Administered into right deltoid, pt tolerated well, band aide applied. B12 injection Pt is here today to receive B12 injection #4 of 6. Administered into left deltoid, pt tolerated well, band aid applied. Pt is scheduled to rtc in 1 week for b12 injection #5/6. Testosterone Injection Pt is her e today with his Testosterone Cypionate vial that he receives from his pharmacy and brings into our clinic to be administered. Successfully administered Testosterone Cypionate, 200 mg/mL, lot# [id number], exp: 08/2027, into right dorsogluteal muscle. Pt tolerated well, band aide applied. No reaction noted. B12 INJECTION Pt is here today to receive B12 injection #3 of 6. Administered into right deltoid, pt tolerated well, band aide applied. Pt is scheduled to rtc in 1 week for B12 injection #4 of 6. B12 injection Rhett is here this morning to receive b12 injection #2 of 6. Administered into left deltoid, pt tolerated well, band aide applied. Pt is scheduled to rtc in 1 week for #3 of 6. follow up labs Girish is here t damian for f/u on recent lab results that were called to him last week.As a result his testosterone and b12 levels were low.We will start a b12 weekly injection x 6 series, then convert to monthlyHe will also start monthly Testosterone injections.UDS was appropriateK[place] appropriateControlled substance contract signed.He reports fatigue. Fasting Labs Pt is here today to have fasting labs collected. 1x attempt in right ac with butterfly needle. Successfully collected 3 tubes, pt tolerated well, gauze and coban applied, pt instructed to remove in 5-10 minutes, pt voiced understanding. Pt is scheduled to rtc in 2 weeks to follow up on lab results. Depression screening Depression screening completed 11/23/24. Pt scored 0, provider aware. -WILFREDO GARCIA Prapare Prapare complete d 11/23/24. -WILFREDO GARCIA BP Rhett is here toda y for a BP check. Over the weekend, he felt his BP was too low, 96/70. His felt he was having an anxiety attack. He took a buspirone and felt better. tick bite Rhett is here toda y for a tick bite to his right neck. States he found it yesterday and pulled the tick off, head was in tact. He now has a dime sized area of raised induration and erythema. It is itchy. He has cleansed the wound with soap, water and iodine yesterday and reports wound looks better today than yesterday. He has not had a fever.Rhett was recently hospitalized for a gangrenous appendix. f/u BP Mr. Tate is here today for f/u on BP and for possible need of EKG.He was seen on 03/02/24 w/ general surgery : Dr. España- for a removal of lipoma. As standard procedure, an EKG was performed. It was documented that the auto read said Myocardial Infarction. He did not have any chest pain or symptoms at time of EKG and was likely a misread. He is here today for f/u to ensure that he is not in need of any further testing.Mr. Tate did miss his f/u appt w/ me on 02/11/24 r/t I was out of the office and he was not rescheduled.Today his BP is well controlled at 121/78. He does report that the lisinopril has caused him to have a dry cough, tingling in his throat. I am stopping Lisinopril and will be starting valsartan.He reports compliance with his medication.Today he denies cp, soa, dizzness or fainting. He also denies such symptoms in the past 2 weeks. However, he does report that about 3 months ago he had a dizzy spell with some nausea. He has not had any since. He does smoke and has smoked for Lab reviewed 01/13/24Total cholesterol was 277LDL 195, HDL 60, trigs 125he was started on rosuvistatin- tolerating well.A1c 5.5TSH, CBC, CMP okHep C negsmoking cessation recommended as well as diet modificationEKG today is abnormalsinus rhythmHR 72Anterosptal Myocardial infaction (40+ ms Q wave in V1-V4) of indeterminate ageHe was advised that if he has chest pain, nv, dizziness or fainting to go to the hospital immediately.I am referring him urgently to cardiology for further work up.He is agreeable to this. f/u labs and bp Rhett is a 48 yo m gracie here today for f/u on his BP. BP is doing better 140/83 Rt and 122/86 Left. He did not start medication until last week due to unavailability at the pharmacy. He states that the 1st 2 days he did feel like he was dizzy, but since has felt better and is still taking the medication.Labs ok over allCBC,- Hct 52.6 elevated- smoker- not ready to quitCMP mostly normal- co2 slightly lowTSH nmlA1C 5.5Total cholesterol high 277, LDL 195, Trigs 125, hdl 60- will start rosuvistatinDiet modification to limit fried, greasy fatty foods also discussed.He voiced understandingRTC 1 month f/ BP Lipoma on back. Lipoma stablepre sent for a few yearsfeels it is about the same sizehx of other lipoma on left shoulder. New Patient. Establish care. Rhett is here at the recommendation of his Shea. He states he has hx of htn in his 20's but has not been on medication in years. He is hypertensive here today, will start LIsinopril and he will RTC 2 weeks for f/u on labs results and BP. He denies shine, dizziness, soa, cp, or fainting.Needs refills of chronic medications-anxiety and depression- on 20 mg excitalopram. Has been taking for years and does well on it.Needs scheduled for colonoscopy at [facility]-mother had cancer colon, bladder.He denies bloody stools, or other complications.He would also like a referral for dermatology for a possible surgical excision of a lipoma located on the mid right lateral portion of his thoracic spine.He states he had a previous one removed from his back/left shoulder area. Benign.[facility] dermatology would be ok. depression screening Depression screening completed on 12/30/2023. Patient scored a 0.-KB,CM MILDRED LEVY complete d on 12/30/2023.-KBCM Instructions Date Instruction Additional Infor nolberto Patient instructed o f the importance of taking medications as prescribed, following a low salt diet as well as getting physical activity as tolerated. Patient advised to keep BP log daily checking each morning and before bed. Patient to call the clinic if systolic blood pressure is greater than 150 and/or diastolic blood pressure is staying greater than 90. Related to Hypertension B-12 injection given in office today. Eat foods rich in B-12. Additional oral B12 replacement if indicated. Related to Vitamin B12 deficiency anemia, unspecified Patient educated on the importance of maintaining glycemic control. Counseled on diet, exercise and other lifestyle factors that can impact glucose control. Patient aware of the importance of diabetic eye exams, dental check ups, foot exams and diabetic foot care. Patient verbalized understanding. Low fat, low cholesterol diet. Avoid fatty, fried, and greasy foods. Physical activity as tolerated. Counseled on risks of associated comorbidities, such as heart disease and stroke. Encouraged avoidance of tobacco products. Related to Hyperlipidemia Dietary Instructions for a healthy weight: BMI should be between the range of 18.5-24.9 for an adult; and Caloric intake should be around 6246-4809 for a female, and 0265-5502 for an adult male. Fiber intake should be about 14 grams for 1000 calories per day. That is about 20-30 grams daily. Good sources of fiber are oatmeal, fortified grains, and green leafy vegetables, apples. You can also use Carbohydrate counting to maintain a healthy weight. One serving is equal to 15 grams (1 piece of bread, small fruit, or 1 cup of milk). Men should have 45-75, Women about 30-65 per meal, and snacks are recommend to be 13-30 grams each. My[employer] is a good source for meal planning and dietary education. You may also refer to the [place] [employer] website for further low sodium, health heart diet information. Mediterainian diet would be a suitable diet for your current health conditions. Physical activity as tolerated. Try to engage in some form of moderate physical activity for 30 minutes most days of the week. May modify activity as needed to reduce discomfort. Try to achieve/maintain a healthy body weight to reduce strain on musculoskeletal system. Verbalizes an understanding. Related to Obesity, unspecified Goal of medication i s to improve quality of life and perform ADLS. Patient is aware of the risks associated with controlled medications; including, but not limited to, dependence, addiction, and even . Aware of the importance of only taking medications as prescribed. BRISA reports scanned into the patients record are reviewed and appropriate. Urine drug testing results are appropriate. Aware that any further increase in medication strength or frequency could warrant a referral to Urologist. Any questions regarding controlled medications were answered. Patient verbalized an understanding of all. Related to Testicular hypogonadism NOS Giving encouragement to exercise Related to Obesity, unspecified Lifestyle education regarding di et Related to Obesity, unspecified Discussed stress red uction techniques. Take medications as prescribed. Limit caffeine and nicotine. Try to follow a set sleep schedule. Get daily moderate exercise if able to tolerate. Related to Anxiety It is recommended to stop smoking/vaping to increase overall health and decrease risk of cardiovascular disease. If you wish to stop smoking/vaping, there is a free online Arma from smoking course offered through our local health department. You may call [phone] for more information. Related to Nicotine dependence, cigarettes, uncomplicated Patient currently do ing well. BP in goal range. No medication changes. Patient instructed to follow a low salt diet, continuing taking blood pressure medications as prescribed. Keep routine follow up with clinic. Related to Hypertension Giving encouragement to exercise Related to Body mass index [BMI] 34.0-34.9, adult Lifestyle education regarding di et Related to Body mass index [BMI] 34.0-34.9, adult Patient currently do ing well. BP in goal range. No medication changes. Patient instructed to follow a low salt diet, continuing taking blood pressure medications as prescribed. Keep routine follow up with clinic. Related to Hypertension It is recommended to stop smoking/vaping to increase overall health and decrease risk of cardiovascular disease. If you wish to stop smoking/vaping, there is a free online Arma from smoking course offered through our local [facility] department. You may call [phone] for more information. Related to Nicotine dependence, cigarettes, uncomplicated Keep area clean and dry. If oozing, can use neosporin ointment and cover with band-aid. Otherwise, keep open to air. Take all antibiotics until complete. May take with food to ease stomach irritation. If you experience frequent yeast infections, you may consider taking an OTC probiotic like culturell or align while taking antibiotics. Related to Bit/stung by nonvenom insect & oth nonvenom arthropods, init Discussed stress red uction techniques. Take medications as prescribed. Limit caffeine and nicotine. Try to follow a set sleep schedule. Get daily moderate exercise if able to tolerate. Related to Anxiety Giving encouragement to exercise Related to Body mass index [BMI] 34.0-34.9, adult Lifestyle education regarding di et Related to Body mass index [BMI] 34.0-34.9, adult It is recommended to stop smoking/vaping to increase overall health and decrease risk of cardiovascular disease. If you wish to stop smoking/vaping, there is a free online Arma from smoking course offered through our local health department. You may call [phone] for more information. Related to Nicotine dependence, cigarettes, uncomplicated Physical activity as tolerated. Try to engage in some form of moderate physical activity for 30 minutes most days of the week. May modify activity as needed to reduce discomfort. Try to achieve/maintain a healthy body weight to reduce strain on musculoskeletal system. Verbalizes an understanding. Related to Body mass index [BMI] 34.0-34.9, adult Low fat, low cholest jose diet. Avoid fatty, fried, and greasy foods. Physical activity as tolerated. Counseled on risks of associated comorbidities, such as heart disease and stroke. Encouraged avoidance of tobacco products. Related to Hyperlipidemia Patient currently do ing well. BP in goal range. No medication changes. Patient instructed to follow a low salt diet, continuing taking blood pressure medications as prescribed. Keep routine follow up with clinic. Related to Hypertension Referral to Cardiolo gy made todayEKG in office today - abnormal EKG Patient instructed that any chest pain or discomfort lasting longer than 5 minutes warrants an urgent emergency room evaluation. Patient verbalized understanding. Related to Abnormal EKG Giving encouragement to exercise Related to Body mass index [BMI] 34.0-34.9, adult Lifestyle education regarding di et Related to Body mass index [BMI] 34.0-34.9, adult Low fat, low cholest jose diet. Avoid fatty, fried, and greasy foods. Physical activity as tolerated. Counseled on risks of associated comorbidities, such as heart disease and stroke. Encouraged avoidance of tobacco products. Related to Hyperlipidemia Physical activity as tolerated. Try to engage in some form of moderate physical activity for 30 minutes most days of the week. May modify activity as needed to reduce discomfort. Try to achieve/maintain a healthy body weight to reduce strain on musculoskeletal system. Verbalizes an understanding. Related to Body mass index [BMI] 34.0-34.9, adult Patient instructed o f the importance of taking medications as prescribed, following a low salt diet as well as getting physical activity as tolerated. Patient advised to keep BP log daily checking each morning and before bed. Patient to call the clinic if systolic blood pressure is greater than 150 and/or diastolic blood pressure is staying greater than 90. Related to Hypertension It is recommended to stop smoking/vaping to increase overall health and decrease risk of cardiovascular disease. If you wish to stop smoking/vaping, there is a free online Arma from smoking course offered through our local health department. You may call [phone] for more information. Related to Nicotine dependence, cigarettes, uncomplicated Giving encouragement to exercise Related to Body mass index [BMI] 34.0-34.9, adult Lifestyle education regarding di et Related to Body mass index [BMI] 34.0-34.9, adult It is recommended to stop smoking/vaping to increase overall health and decrease risk of cardiovascular disease. If you wish to stop smoking/vaping, there is a free online Arma from smoking course offered through our local health department. You may call [phone] for more information. Related to Nicotine dependence, cigarettes, uncomplicated continue to monitor lipoma for changes in shape, structure, or color. 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 Take medications as prescribed. Limit caffeine and nicotine. Try to follow a set sleep schedule. Get daily moderate exercise if able to tolerate. Related to Anxiety Take medications as prescribed. Follow a sleep schedule. Try to engage in 30 minutes of moderate activity daily if tolerated, as exercise has been shown to improve depression symptoms Related to Depression Patient instructed o f the importance of taking medications as prescribed, following a low salt diet as well as getting physical activity as tolerated. Patient advised to keep BP log daily checking each morning and before bed. Patient to call the clinic if systolic blood pressure is greater than 150 and/or diastolic blood pressure is staying greater than 90.Start lisinoprol 40 mg daily- benefits and risk discussedRTC 2 weeks f/u on fasting lab results and recheck bp Related to Hypertension Giving encouragement to exercise Related to Body mass index [BMI] 34.0-34.9, adult Lifestyle education regarding di et Related to Body mass index [BMI] 34.0-34.9, adult Assessments Type Assessment Date No Information
--- OUTSIDE RECORDS SUMMARY | 2025-02-27 15:37 | XMS_ITS | Clinical Summary ---
Author Organization Healthcare Address [address] [place] [address] Care Team Providers Care Metal Trimmer Name Role Phone Unavailable Primary Care Provider Unavailabl e Medications escitalopram (Lexapro) 20 MG tabletIndication s:Generalized anxiety disorder Take 1 tablet (20 mg total) by mouth 1 (one) time each day. 90 tablet 3 05/02/2022 Active Active Problems Problem Noted Date Diagnosed Date Sleep apnea 12/12/2015 Generalized anxiety disorder 08/19/2014 Hyperlipidemia 08/19/2014 Social History Tobacco Use Types Packs/Day Years Used Date Smoking Tobacco: Light Smoker Sex and Gender Information Value Date Recorded Sex Assigned at Not on file Legal Sex Male 5:55 PM EDT Gender Identity Not on file Sexual Orientation Not on file Last Filed Vital Signs Vital Sign Reading Time Taken Comments Blood Pressure 140/92 07/26/2019 7:55 AM EST Pulse 86 07/26/2019 7:55 AM EST Temperature - - Respiratory Rate 14 07/26/2019 7:55 AM EST Oxygen Saturation - - Inhaled Oxygen Concentration - - Weight 127 kg (279 lb 15.8 oz) 07/26/2019 7:55 A M EST Height 182.9 cm (6') 07/26/2019 7:55 AM EST Body Mass Index 37.97 07/26/2019 7:55 AM EST Plan of Treatment Health Maintenance Due Date Last Done Comments [facility]-Depression Screening 1974 [facility]Infant/Child/Adol SDOH Screenings 1974 [facility]- SDOH Screenings 1992 [facility]-Adult SDOH Screenings 1992 [facility]-DTaP,Tdap,and Td Vaccine s (1 - Tdap) 1993 [facility]-Hepatitis B Vaccines (1 of 3 - 19+ 3-dose series) 1993 CT Colonography 08/18/2019 Colonoscopy 08/18/2019 FIT-DNA 08/18/2019 FIT 08/18/2019 FOBT 08/18/2019 Sigmoidoscopy 08/18/2019 [facility]-Colorectal Cancer Screening 08/18/2019 [facility]-Pneumococcal Vaccine: 50 + Years (1 of 1 - PCV) 2024 [facility]-Zoster Vaccines (1 of 2) 2024 [id number] Vaccine (1 - 20 24-25 season) 2025 [facility]-Influenza Vaccine (#1) 2025 HPV Vaccines Aged Out No longer eligi ble based on patient's age to complete this topic [facility]-HIB Vaccines Aged Out No longer e ligible based on patient's age to complete this topic [facility]-Hepatitis A Vaccines Aged Out No longer eligible based on patient's age to complete this topic [facility]-IPV Vaccines Aged Out No longer e ligible based on patient's age to complete this topic [facility]-Rotavirus Vaccines Aged Out No lo nger eligible based on patient's age to complete this topic Insurance
--- OUTSIDE RECORDS SUMMARY | 2025-02-27 15:37 | XMS_ITS | Encounter Summary ---
Author Organization [facility] Address [address] [place] [address] Care Team Providers Care Managed Care Specialist Name Role Phone Desi Bellamy MD Primary Care Provider [phone] Reason for Visit * Reason Comments Med Refill Encounter Details Date Type Department Care Team (Late st Contact Info) Description 12/13/2020 Refill [facility] [address] [place] [address] Desi Bellamy MD [address] [place] [address] Social History Tobacco Use Types Packs/Day Years Used Date Smoking Tobacco: Light Smoker Sex and Gender Information Value Date Recorded Sex Assigned at Not on file Legal Sex Male 5:55 PM EDT Gender Identity Not on file Sexual Orientation Not on file documented as of this encounter Miscellaneous Notes * Telephone Encounter - Gracie Salas PharmD - 12/17/2020 4:58 PM EDT Refill request does not meet protocol. Sending to clinic triage for further review. Additional info: Pt last seen 07/2019 documented in this encounter Plan of Treatment Not on file documented as of this encounter Visit Diagnoses Not on filedocumented in this encounter Care Teams Managed Care Specialist Relationship Specialty Start Date End Date Desi Bellamy MD [address] [place] [address] PCP - General 10/05/20 08/03/23 documented as of this encounter
[2025-02-27 16:19] LABS: Hematocrit 45.0 % (42.0-52.0); Hemoglobin 15.6 g/dL (14.1-18.0); Immature Granulocytes % 0.2 %; Mean Corpuscular HGB Conc 34.7 g/dL (31.8-35.4); Mean Corpuscular Hemoglobin 30.1 pg (27.0-31.2); Mean Corpuscular Volume 86.9 fl (80-94); Nucleated Red Blood Cells % 0 %; Platelet Count 256 K/mm3 (142-424); Red Blood Count 5.18 M/mm3 (4.60-6.20); Red Cell Distribution Width-SD 41.0 fL; White Blood Count 9.2 K/mm3 (4.8-10.8)
[2025-02-27 17:10] LABS: Alanine Aminotransferase 44 U/L (12-78); Albumin Level 4.6 g/dl (3.5-5.0); Albumin/Globulin Ratio 2.3 (1.1-1.8); Alkaline Phosphatase 84 U/L (38-126); Anion Gap 14.4 mEq/L (5-15); Aspartate Amino Transferase 37 U/L (17-59); Bilirubin,Total 0.6 mg/dl (0.2-1.3); Blood Urea Nitrogen 20 mg/dl (9-20); Calcium 9.6 mg/dl (8.4-10.2); Carbon Dioxide 23 mmol/L (22.0-30.0); Chloride 103 mmol/L (98-107); Creatinine,Serum 0.90 mg/dl (0.66-1.25); Estimated Glomerular Filt Rate 89 ml/min (>60); GFR (African American) 108 ML/MIN (>60); Globulin 2.0 g/dL (1.3-3.2); Glucose 89 mg/dl (74-100); Potassium 4.4 mmoL/L (3.5-5.1); Sodium 136 mmol/L (136-145); Total Protein,Serum 6.6 g/dl (6.3-8.2)
[2025-02-27 17:24] LABS: 25-OH Vitamin D, Total 39.8 ng/mL (30-100)
[2025-02-27 17:40] LABS: Thyroid Stimulating Hormone 1.72 uIU/mL (0.465-4.68)
[2025-02-27 17:51] LABS: Hemoglobin A1C 5.0 % (4.0-6.0)
[2025-02-27 17:59] LABS: Vitamin B12 638 pg/mL (239-931)
[2025-02-28 10:12] LABS: Testosterone,Total 352 ng/dL (264-916); Triiodothyronine (T3) Free 3.2 pg/mL (2.0-4.4)
[2025-03-01 02:34] LABS: PSA, Free 0.06 ng/mL
== END 2025-02-27 23:59 | disposition home or self-care (01) ==
LOC: LAB 15:35
PROVIDERS: PCP Nurse Practitioner Family; Visit Provider Nurse Practitioner Adult Health
DX: E55.9 Vitamin D deficiency, unspecified (principal); E53.9 Vitamin B deficiency, unspecified; R53.83 Other fatigue; R35.1 Nocturia; Z13.1 Encounter for screening for diabetes mellitus; Z13.220 Encounter for screening for lipoid disorders; Z13.29 Encounter for screening for other suspected endocrine disorder
CPT/HCPCS: 36415; 80053; 82306; 82607; 82627; 82670; 83036; 84153; 84154; 84402; 84403; 84443; 84481; 85025; 86376

== ENCOUNTER 2025-04-17 13:21 | Outpatient (CLI) | payer BC, SELFPAY ==
--- OUTSIDE RECORDS SUMMARY | 2025-04-17 13:41 | XMS_ITS | Clinical Summary ---
Author Organization Healthcare Address [address] [place] [address] Care Team Providers Care Zinc Plate Cutter Name Role Phone Unavailable Primary Care Provider [...] Date Last Done Comments [facility]Depression Screening 1974 [facility]-/Child/Adol SDOH Screenings 1974 [facility]- SDOH Screenings 1992 [...] 2024 [facility]-Zoster Vaccines (1 of 2) 2024 [id number] Vaccine (1 - 20 season) 2025 [facility]-Influenza Vaccine (#1) 2025 HPV [...]
--- OUTSIDE RECORDS SUMMARY | 2025-04-17 13:41 | XMS_ITS | Encounter Summary ---
Author Organization [facility] Address [address] [place] [address] Care Team Providers Care Forensic Scientist Name Role Phone Desi Bellamy MD Primary Care Provider [phone] Reason for Visit * Reason Comments Med Refill Encounter Details Date Type Department Care Team (Late st Contact Info) Description 12/13/2020 Refill [facility] [address] [place] [address] Desi Bellamy MD [address] [place] [address] Social History Tobacco Use Types [...] on filedocumented in this encounter Care Teams Forensic Scientist Relationship Specialty Start Date End Date Desi Bellamy MD [address] [place] [address] PCP - General 10/05/20 08/03/23 documented as of this encounter
[2025-04-17 13:51] LABS: Hematocrit 50.1 % (42.0-52.0); Hemoglobin 17.3 g/dL (14.1-18.0); Immature Granulocytes % 0.3 %; Mean Corpuscular HGB Conc 34.5 g/dL (31.8-35.4); Mean Corpuscular Hemoglobin 30.1 pg (27.0-31.2); Mean Corpuscular Volume 87.1 fl (80-94); Nucleated Red Blood Cells % 0 %; Platelet Count 325 K/mm3 (142-424); Red Blood Count 5.75 M/mm3 (4.60-6.20); Red Cell Distribution Width-SD 39.1 fL; White Blood Count 8.8 K/mm3 (4.8-10.8)
[2025-04-17 14:42] LABS: C-Reactive Protein 17.0 mg/L (0-4)
[2025-04-18 08:13] LABS: Testosterone,Total 732 ng/dL (264-916)
== END 2025-04-17 23:59 | disposition home or self-care (01) ==
LOC: LAB 13:22
PROVIDERS: PCP Nurse Practitioner Family; Visit Provider Nurse Practitioner Adult Health
DX: M25.50 Pain in unspecified joint (principal); R53.83 Other fatigue; Z79.890 Hormone replacement therapy; Z13.29 Encounter for screening for other suspected endocrine disorder
CPT/HCPCS: 36415; 82670; 84402; 84403; 85025; 85651; 86140